=== PATIENT | female | born 1995 ===

== ENCOUNTER 2020-06-24 09:28 | Emergency (ER) | payer SELFPAY ==
[2020-06-24 09:53] VITALS: BP 126/87; PULSE 88; RESP 16; TEMP 37; O2SAT 99; BMI 28.1
--- NOTE | 2020-06-24 10:04 | ED.ABDPAIN ---
HPI - Abdominal Pain General Chief Complaint: Abdominal Pain Stated Complaint: BACK AND ABD PAIN,NAUSEA Time Seen by Provider: 06/24/20 09:56 Source: patient Mode of arrival: ambulatory Limitations: no limitations History of Present Illness HPI narrative: 24-year-old female previously healthy here with right lower abdominal pain which radiates to the right lower back times several hours. She also has some associated nausea with no vomiting. She tells me last evening she had some diarrhea but this is resolved today. She did have some hesitancy with urinating this morning but no dysuria, frequency, hematuria. No fevers or chills. No vaginal discharge, rashes, lesions, bumps.'LMP 06/05 MD elicited complaint: abdominal pain Onset (ago): hour(s) Pain Consistency: constant Location: RLQ Severity: mild Quality: sharp Radiation: back Migration to: no migration Exacerbating factors: nothing Relieving factors: nothing Associated symptoms: denies other symptoms Related Data Previous Rx's Medication Instructions Recorded ibuprofen 600 mg PO Q8H PRN #20 tab 06/24/20 tamsulosin [Flomax] 0.4 mg PO DAILY #20 cap 06/24/20 Allergies Allergy/AdvReac Type Severity Reaction Status Date / Time No Known Allergies Allergy Verified 06/24/20 09:55 [No Known Allergies*] Review of Systems Review of Systems Yes all other systems are reviewed and are negative Constitutional: Reports no additional constitutional complaints, Denies body ache(s), Denies chills, Denies fever(s), Denies headache(s) and Denies weakness Eyes: Reports no additional eye complaints and Denies change in vision Reports system reviewed and no additional complaints, except as documented, Denies dizziness, Denies headache(s), Denies nasal congestion, Denies nasal discharge and Denies neck pain Cardiovascular: Reports no additional cardiovascular complaints, Denies chest pain, Denies leg edema and Denies dyspnea Respiratory: Reports no additional respiratory complaints, Denies cough and Denies dyspnea Gastrointestinal: Reports no additional gastrointestinal complaints, Reports abdominal pain, Denies diarrhea, Reports nausea and Denies vomiting Genitourinary: Reports no additional female genitourinary complaints and Denies urinary incontinence Musculoskeletal: Reports no additional musculoskeletal complaints, Reports back pain, Denies arthralgias, Denies joint swelling, Denies neck pain, Denies numbness and Denies tingling Skin/Breast: Reports system reviewed and no additional complaints, except as docu and Denies rash Reports system reviewed and no additional complaints, except as documented, Denies Abnormal speech present, Denies dizziness, Denies headache(s), Denies numbness, Denies tingling and Denies weakness Physical Exam Vital Signs: Vital Signs: Last Vital Signs Temp 98.6 F 06/24/20 09:53 Pulse 80 06/24/20 11:51 Resp 16 06/24/20 11:51 BP 116/72 06/24/20 11:51 Pulse Ox 99 06/24/20 11:51 Body Mass Index 28.1 Const: General: cooperative, healthy appearing, comfortable and no acute distress Orientation/consciousness: patient oriented x3 Limitations: no limitations HENMT: Head: Yes normal to inspection Ears: hearing grossly normal bilaterally General nose exam: Normal external nose present Face and sinus: Yes normal facial exam Mouth: Normal oral and palatal mucosa present Throat: Yes posterior oropharynx normal Eyes: General: appearance normal, both eyes and all related structures Pupils: Equal, round and reactive pupils present Neck: Neck: Yes normal visual inspection Chest: Chest palpation & inspection: normal inspection of the chest Resp: Effort & Inspection: normal respiratory effort Auscultation: clear to auscultation bilaterally Cardio: Rate: regular rate Rhythm: regular rhythm Peripheral pulses: Peripheral pulses 2+ throughout GI: Inspection: Yes normal to inspection Palpation (GI): Soft to palpation and Tenderness to palpation present (GI) (no rebound, mild guarding ) in the RLQ Auscultation: normal bowel sounds : General: Yes no CVA tenderness Back/Spine/Pelvis: Other: Unable to elicit pain on exam. Patient points to her mid to lower right back Back: no CVA tenderness Thoracic/Lumbar Spine: thoracic and lumbar spine normal to inspection Skin: General skin exam: no rashes or lesions noted Neuro: General: patient oriented x3, no focal motor deficits and normal sensation to monofilament Cranial nerves: Yes Equal, round and reactive pupils present Cognition (Neuro): normal cognition Speech: No Abnormal speech present Gait exam (Neuro): Normal gait present Motor exam (neuro): 5/5 motor strength present throughout Extrem: General: Yes normal to inspection Course Course Course Narrative: 24-year-old female here with right lower abdominal pain which radiates to the right lower back times several hours. On exam has some mild tenderness. She will need labs, UA, urine . Will place PIV and give normal saline bolus, antiemetics and analgesia and reassess. Patient will likely need additional imaging. 1120-UA shows 3+ RBC. Likely renal colic however consider appendicitis. Will check Ct A/P. 1245- CT shows 1. Mild right hydronephrosis and hydroureter secondary to a 3 mm right ureteral calculus at level of L3. 2. Two nonobstructing calculi lower pole right kidney, each around 3 mm. 3. Moderate stool in colon. No obstruction. Appendix unremarkable. 4. Small follicular cyst right ovary 2.5 cm and dominant follicle left ovary 2.2 cm. 1245-labs unremarkable. Patient is feeling improved after receiving a dose of Toradol here. We will refer her for outpatient Urology follow-up. Reviewed worrisome signs and symptoms and when to return to the emergency department. Comfortable with discharge home. MDM - Abdominal Pain MDM Narrative Medical decision making narrative: Appendicitis, pyelonephritis, UTI, ovarian cyst versus torsion, cholecystitis, cholelithiasis Medical Records Attestation: I reviewed the patient's medical records. Lab Data Attestation: I reviewed the patient's lab results. Result diagrams: 06/24/20 10:14 06/24/20 10:14 Labs: Lab Results 06/24/20 06/24/20 06/24/20 Range/Units 10:14 10:14 10:14 WBC 7.4 (4.8-10.8) X10*3/uL RBC 4.49 (4.20-5.50) X10*6/uL Hgb 13.6 (12.0-16.0) g/dl Hct 39.8 (37-47) % MCV 88.6 (80-98) fL MCH 30.3 (27.0-33.0) pg MCHC 34.2 (31.0-35.0) g/dl RDW 11.9 (11.0-16.0) % Plt Count 336 (160-400) X10*3/uL MPV 9.1 L (9.4-12.3) fL Immature Gran % (Auto) 0.5 H (0.0-0.4) % Neut % (Auto) 66.6 (45-73) % Lymph % (Auto) 18.9 L (20-40) % [place] % (Auto) 11.8 H (2-11) % Eos % (Auto) 1.4 (0-4) % Baso % (Auto) 0.8 (0-2) % Lymph # (Auto) 1.4 (1.2-4.9) X10*3/uL [place] # (Auto) 0.9 (0.1-1.2) X10*3/uL Eos # (Auto) 0.1 (0.0-0.4) X10*3/uL Baso # (Auto) 0.1 (0.0-0.2) X10*3/uL Abs Immat Gran (auto) 0.04 H (0.00-0.03) X10*3/uL Absolute Neuts (auto) 4.9 (2.0-8.3) X10*3/uL Absolute Nucleated RBC 0.000 (0.0-0.012) X10*3/uL Nucleated RBC % (auto) 0.0 (0.0-0.2) /100WBC Sodium 138 (135-145) mmol/L Potassium 4.4 (3.3-5.1) mmol/l Chloride 107 (96-108) mmol/L Carbon Dioxide 26 (22-29) mmol/L Anion Gap 9 L (12-20) BUN 8 L (9-16) mg/dL Creatinine 0.71 (0.5-1.4) mg/dL Estim Creat Clear Calc 120.6 Estimated GFR > 60 Random Glucose 99 (60-115) mg/dL Calcium 8.9 (8.4-10.2) mg/dL Magnesium 1.7 (1.6-2.6) mg/dL Total Bilirubin 0.3 (0.0-1.0) mg/dL Direct Bilirubin < 0.2 (0.0-0.5) mg/dL AST 12 (5-31) U/L ALT 14 (0-31) U/L Alkaline Phosphatase 58 (39-117) U/L Total Protein 6.3 L (6.5-8.0) g/dL Albumin 4.1 (3.5-5.0) g/dL Urine Color [place] Urine Appearance HAZY Urine pH 7.0 (5.0-8.0) Ur Specific [place] 1.020 (1.005-1.025) Urine Protein NEG (NEG-TRACE) MG/DL Urine Glucose (UA) NEG (NEG) MG/DL Urine Ketones NEG (NEG) MG/DL Urine Blood 3+ H (NEG) Urine Nitrite NEG (NEG) Ur Leukocyte Esterase NEG (NEG) Urine RBC TNTC H (0) /HPF Urine WBC 1-4 (0-4) /HPF Ur Squamous Epith Cells TRACE /LPF Urine Bacteria NONE /LPF Urine Test NEGATIVE (NEGATIVE) Imaging Data CT scan - abdomen: Attestation: I personally reviewed and interpreted this imaging study as follows: Radiologist's impression: CT/CT abdomen pelvis w con IMPRESSION: 1. Mild right hydronephrosis and hydroureter secondary to a 3 mm right ureteral calculus at level of L3. 2. Two nonobstructing calculi lower pole right kidney, each around 3 mm. 3. Moderate stool in colon. No obstruction. Appendix unremarkable. 4. Small follicular cyst right ovary 2.5 cm and dominant follicle left ovary 2.2 cm. Discharge Plan Discharge Clinical Impression: Renal colic on right side Patient Disposition: Home, Self-Care Instructions: Renal Colic (ED) Additional Instructions: Drink plenty of fluids Call urology for follow-up appointment Return for severe pain not improved with medicines that we are prescribing, vomiting episodes, fever Prescriptions: New tamsulosin [Flomax] 0.4 mg capsule 0.4 mg PO DAILY Qty: 20 RF: 0 ibuprofen 600 mg tablet 600 mg PO Q8H PRN (Reason: pain) Qty: 20 RF: 0 Referrals: Howie Fuentes MD [Physician] - 2 days Physician,Unknown [Primary Care Provider] - 2 days Interventions: ED Discharge Assessment Last Done: 06/24/20 12:44 Discharge Date/Time: 06/24/20 12:44 [facility] Past Medical History Attestation statement: The following information was validated with the patient. Source: old records reviewed and nursing notes reviewed Medical History No known health problems Social History Social History Advance Directives: No Advance Directives Information Provided: No
[2020-06-24 10:22] LABS: MANUAL DIFF FLAG NO
[2020-06-24 10:25] LABS: Basophils Absolute Auto 0.1 X10*3/uL (0.0-0.2); Basophils Percent Auto 0.8 % (0-2); Eosinophils Absolute Auto 0.1 X10*3/uL (0.0-0.4); Eosinophils Percent Auto 1.4 % (0-4); Hematocrit 39.8 % (37-47); Hemoglobin 13.6 g/dl (12.0-16.0); Imm Gran Abs Auto 0.04 X10*3/uL (0.00-0.03); Imm Gran Pct Auto 0.5 % (0.0-0.4); Lymphocytes Absolute Auto 1.4 X10*3/uL (1.2-4.9); Lymphocytes Percent Auto 18.9 % (20-40); Mean Corpuscular HGB Conc 34.2 g/dl (31.0-35.0); Mean Corpuscular Hemoglobin 30.3 pg (27.0-33.0); Mean Corpuscular Volume 88.6 fL (80-98); Mean Platelet Volume 9.1 fL (9.4-12.3); Monocytes Absolute Auto 0.9 X10*3/uL (0.1-1.2); Monocytes Percent Auto 11.8 % (2-11); Neutrophils Absolute Auto 4.9 X10*3/uL (2.0-8.3); Neutrophils Percent Auto 66.6 % (45-73); Platelet Count 336 X10*3/uL (160-400); Red Blood Count 4.49 X10*6/uL (4.20-5.50); Red Cell Distribution Width 11.9 % (11.0-16.0); White Blood Count 7.4 X10*3/uL (4.8-10.8)
[2020-06-24] MEDS: ondansetron HCL 4 MG/2 ML VIAL IVPUSH (10:26)
[2020-06-24] MEDS: 0.9 % Sodium Chloride 1,000 ML 999 ML IV (10:26)
[2020-06-24] MEDS: Morphine Sulfate 4 MG/ML CARTRIDGE IVPUSH (10:26)
[2020-06-24 10:34] LABS: Glucose Urine UA NEG (NEG); Leukocyte Esterase Urine NEG (NEG); Nitrite Urine NEG (NEG); Urine Blood 3+ (NEG); Urine Ketones NEG (NEG); Urine Protein NEG (NEG-TRACE)
[2020-06-24 10:37] LABS: Appearance Urine HAZY; Color Urine AMBER
[2020-06-24 10:38] LABS: UPreg QC Valid YES; Urine Pregnancy NEGATIVE (NEGATIVE)
--- NOTE | 2020-06-24 10:50 | CT_ITS ---
EXAMINATION: CT ABDOMEN AND PELVIS WITH CONTRAST CLINICAL INFORMATION: Right flank and right lower quadrant pain. Age 24. COMPARISON: None TECHNIQUE: Multidetector volumetric images were obtained from the superior aspect of the liver through the pubic symphysis following administration 85 mL of Omnipaque 350 intravenous contrast. Sagittal and coronal reformatted images were obtained on the technologist's workstation. Oral contrast: No This CT examination was performed using dose optimization techniques as appropriate, variously including the following: *Automated exposure control *Adjustment of mA and/or kV according to patient size (this includes techniques or standardized protocols for targeted exams where dose is matched to indication/reason for exam; i.e. extremities or head) *Use of iterative reconstruction technique DLP: 565 mGy-cm FINDINGS: LUNG BASES: The visualized lung bases are unremarkable. LIVER, GALLBLADDER, AND BILIARY TREE: The liver is normal in size, shape, and attenuation. No focal hepatic lesion or biliary ductal dilatation is present. The gallbladder is unremarkable with no evidence of radiopaque gallstones, gallbladder wall thickening, or obvious pericholecystic inflammatory changes. PANCREAS: Unremarkable. SPLEEN: Unremarkable. ADRENAL GLANDS: Unremarkable. KIDNEYS AND URETERS: There is mild right hydronephrosis and hydroureter secondary to a 3 mm right ureteral calculus at level of L3. No perinephric stranding. There are 2 nonobstructing calculi lower pole right kidney, each approximately 3 mm. The kidneys enhance symmetrically and are normal in size. No left hydronephrosis or perinephric stranding or calculi. BLADDER: Unremarkable. GASTROINTESTINAL TRACT: No bowel obstruction or inflammatory changes in the bowel or mesentery. There is moderate stool in the colon. The appendix is normal. There is no ascites or fluid collection. ABDOMINAL WALL: No significant hernia is appreciated. LYMPH NODES: No lymphadenopathy. VASCULAR: Unremarkable. PELVIC VISCERA: There is a probable follicular cyst in the right ovary measuring 2.5 cm and a dominant follicle on the left measuring 2.2 cm. No pelvic ascites. OSSEOUS STRUCTURES: Unremarkable. CT/CT abdomen pelvis w con IMPRESSION: 1. Mild right hydronephrosis and hydroureter secondary to a 3 mm right ureteral calculus at level of L3. 2. Two nonobstructing calculi lower pole right kidney, each around 3 mm. 3. Moderate stool in colon. No obstruction. Appendix unremarkable. 4. Small follicular cyst right ovary 2.5 cm and dominant follicle left ovary 2.2 cm.
[2020-06-24 10:55] LABS: RBC Urine TNTC /HPF (0); Squamous Epithelial Cell Urine TRACE /LPF
[2020-06-24] MEDS: Ketorolac Tromethamine 30 MG/ML VIAL IVPUSH (10:57)
[2020-06-24 10:58] LABS: Alanine Aminotransferase 14 U/L (0-31); Albumin Level 4.1 g/dL (3.5-5.0); Alkaline Phosphatase 58 U/L (39-117); Anion Gap 9 (12-20); Aspartate Amino Transferase 12 U/L (5-31); Bilirubin Direct < 0.2 mg/dL (0.0-0.5); Bilirubin Total 0.3 mg/dL (0.0-1.0); Blood Urea Nitrogen 8 mg/dL (9-16); Calcium 8.9 mg/dL (8.4-10.2); Carbon Dioxide 26 mmol/L (22-29); Chloride 107 mmol/L (96-108); Creatinine Clr Calc Pharmacy 120.6; Estimated Glomerular Filt Rate > 60; Glucose Random 99 mg/dL (60-115); Magnesium 1.7 mg/dL (1.6-2.6); Potassium 4.4 mmol/l (3.3-5.1); Sodium 138 mmol/L (135-145); Total Protein 6.3 g/dL (6.5-8.0)
--- NOTE | 2020-06-24 10:58 | PC.NURSE ---
Pain 6/10 s/p meds given. Awaiting CT scan
[2020-06-24 11:51] VITALS: BP 116/72; PULSE 80; RESP 16; O2SAT 99
[2020-06-24] MEDS: iohexoL 350 MG/ML 100 ML INFUS..BTL IV (11:58)
== END 2020-06-24 12:44 | disposition home or self-care (01) ==
PROVIDERS: Nurse Practitioner Family; Emergency Provider Emergency Medicine Emergency Medical Services
DX: N23 Unspecified renal colic (principal); Z79.899 Other long term (current) drug therapy
CPT/HCPCS: 36415; 74177; 80048; 80076; 81001; 81025; 83735; 85025; 96361; 96374; 96375; 99284; J1885; J2270; J2405; Q9967

== ENCOUNTER 2022-03-04 12:04 | Emergency (ER) | payer BC, SELFPAY | END 2022-03-04 16:45 | disposition left against medical advice (07) | PROVIDERS: Emergency Provider Emergency Medicine | DX: R10.30 Lower abdominal pain, unspecified (principal) ==

== ENCOUNTER 2022-03-05 00:42 | Emergency (ER) | payer BC, SELFPAY ==
[2022-03-05 01:08] VITALS: BP 127/65; PULSE 77; RESP 16; TEMP 36.8; O2SAT 100; BMI 29.2
[2022-03-05 01:26] LABS: MANUAL DIFF FLAG NO
[2022-03-05 01:27] LABS: Basophils Absolute Auto 0.1 X10*3/uL (0.0-0.2); Basophils Percent Auto 0.9 % (0-2); Eosinophils Absolute Auto 0.1 X10*3/uL (0.0-0.4); Eosinophils Percent Auto 1.7 % (0-4); Hematocrit 37.7 % (37.0-47.0); Hemoglobin 13.2 g/dl (12.0-16.0); Imm Gran Abs Auto 0.04 X10*3/uL (0.00-0.03); Imm Gran Pct Auto 0.5 % (0.0-0.4); Lymphocytes Absolute Auto 2.1 X10*3/uL (1.2-4.9); Lymphocytes Percent Auto 27.4 % (20-40); Mean Corpuscular Hemoglobin 30.3 pg (27.0-33.0); Mean Corpuscular Volume 86.7 fL (80.0-98.0); Mean Platelet Volume 8.7 fL (9.4-12.3); Monocytes Absolute Auto 0.9 X10*3/uL (0.1-1.2); Monocytes Percent Auto 11.8 % (2-11); Neutrophils Absolute Auto 4.4 x10*3/uL (2.0-8.3); Neutrophils Percent Auto 57.7 % (45-73); Platelet Count 347 X10*3/uL (160-400); Red Blood Count 4.35 X10*6/uL (4.20-5.50); Red Cell Distribution Width 11.9 % (11.0-16.0); White Blood Count 7.6 X10*3/uL (4.8-10.8)
[2022-03-05 01:43] LABS: Alanine Aminotransferase 12 U/L (0-31); Albumin Level 4.2 g/dL (3.5-5.0); Alkaline Phosphatase 75 U/L (39-117); Anion Gap 14 (12-20); Aspartate Amino Transferase 14 U/L (5-31); Bilirubin Total 0.3 mg/dL (0.0-1.0); Blood Urea Nitrogen 10 mg/dL (9-16); Carbon Dioxide 23 mmol/L (22-29); Chloride 107 mmol/L (96-108); Creatinine Clr Calc Pharmacy 104.6; Estimated Glomerular Filt Rate > 60; Glucose Random 100 mg/dL (60-115); Lipase 13 U/L (8-78); Potassium 4.2 mmol/L (3.3-5.1); Sodium 140 mmol/L (135-145); Total Protein 6.7 g/dL (6.5-8.0)
--- NOTE | 2022-03-05 04:37 | ED.ABDPAIN ---
HPI - Abdominal Pain General Chief Complaint: Abdominal Pain Stated Complaint: Abd pain Time Seen by Provider: 03/05/22 04:36 Source: patient Mode of arrival: ambulatory Limitations: no limitations History of Present Illness HPI narrative: Patient just finished her menstrual cycle Two days ago noticed pain with diarrhea and nausea since yesterday morning pain is in suprapubic area comes and goes mostly had multiple watery stools able to eat and drink no fever or chills no urinary symptoms patient feels comfortable at this time denies any urinary complaints Related Data Previous Rx's Medication Instructions Recorded ibuprofen 600 mg tablet 600 mg PO Q8H PRN pain #20 tabs 06/24/20 tamsulosin 0.4 mg capsule (Flomax) 0.4 mg PO DAILY #20 caps 06/24/20 Allergies Allergy/AdvReac Type Severity Reaction Status Date / Time No Known Allergies Allergy Verified 03/05/22 01:10 [No Known Allergies*] Review of Systems Review of Systems Yes all other systems are reviewed and are negative [facility] Past Medical History Medical History No known health problems Social History Social History Advance Directives: No Advance Directives Information Provided: Yes Physical Exam ED Vital Signs: Vital Signs - 24 hr 03/05/22 01:08 Temperature 98.2 F Pulse Rate 77 Respiratory Rate 16 Blood Pressure 127/65 Pulse Oximetry 100 Oxygen Delivery Method Room Air BMI result Body Mass Index 29.2 Appearance: Alert. Oriented X3. No acute distress. Eyes: PERRLA, No Nystagmus ENT: Pharynx normal. Oral Mucosa moist Neck: Normal inspection. Neck supple. CVS: Normal heart rate and rhythm. Pulses normal. Respiratory: No respiratory distress. Equal air entry bilateral, no wheezing/rales/rhonchi Abdomen: Soft , mild suprapubic tenderness no rebound tenderness no tenderness in right lower quadrant or left lower quadrant no guarding Bowel sounds are present, no mass palpable, no CVA tenderness Skin: Skin warm and dry. Normal skin color. Normal skin turgor. Extremities: No lower extremity edema. No calf tenderness Neuro: Oriented X 3. No motor deficit. MDM - Abdominal Pain Lab Data Attestation: I reviewed the patient's lab results. Result diagrams: 03/05/22 01:14 03/05/22 01:14 Labs: Lab Results 03/05/22 03/05/22 03/05/22 Range/Units 01:14 01:14 05:08 WBC 7.6 (4.8-10.8) X10*3/uL RBC 4.35 (4.20-5.50) X10*6/uL Hgb 13.2 (12.0-16.0) g/dl Hct 37.7 (37.0-47.0) % MCV 86.7 (80.0-98.0) fL MCH 30.3 (27.0-33.0) pg MCHC 35.0 (31.0-35.0) g/dl RDW 11.9 (11.0-16.0) % Plt Count 347 (160-400) X10*3/uL MPV 8.7 L (9.4-12.3) fL Immature Gran % (Auto) 0.5 H (0.0-0.4) % Neut % (Auto) 57.7 (45-73) % Lymph % (Auto) 27.4 (20-40) % [place] % (Auto) 11.8 H (2-11) % Eos % (Auto) 1.7 (0-4) % Baso % (Auto) 0.9 (0-2) % Lymph # (Auto) 2.1 (1.2-4.9) X10*3/uL [place] # (Auto) 0.9 (0.1-1.2) X10*3/uL Eos # (Auto) 0.1 (0.0-0.4) X10*3/uL Baso # (Auto) 0.1 (0.0-0.2) X10*3/uL Abs Immat Gran (auto) 0.04 H (0.00-0.03) X10*3/uL Absolute Neuts (auto) 4.4 (2.0-8.3) x10*3/uL Absolute Nucleated RBC 0.000 (0.0-0.012) X10*3/uL Nucleated RBC % (auto) 0.0 (0.0-0.2) /100WBC Sodium 140 (135-145) mmol/L Potassium 4.2 (3.3-5.1) mmol/L Chloride 107 (96-108) mmol/L Carbon Dioxide 23 (22-29) mmol/L Anion Gap 14 (12-20) BUN 10 (9-16) mg/dL Creatinine 0.79 (0.5-1.4) mg/dL Estim Creat Clear Calc 104.6 Estimated GFR > 60 Random Glucose 100 (60-115) mg/dL Calcium 9.0 (8.4-10.2) mg/dL Total Bilirubin 0.3 (0.0-1.0) mg/dL AST 14 (5-31) U/L ALT 12 (0-31) U/L Alkaline Phosphatase 75 D (39-117) U/L Total Protein 6.7 (6.5-8.0) g/dL Albumin 4.2 (3.5-5.0) g/dL Lipase 13 (8-78) U/L Urine Color Yellow Urine Appearance Cloudy Urine pH 7.5 (5.0-9.0) Ur Specific [place] 1.015 (1.005-1.025) Urine Protein Trace (Neg-Trace) mg/dL Urine Glucose (UA) Negative (Negative) mg/dL Urine Ketones Negative (Negative) mg/dL Urine Blood Moderate (2+) H (Negative) Urine Nitrite Negative (Negative) Ur Leukocyte Esterase Trace H (Negative) Urine RBC >20 H (0-2) /HPF Urine WBC 6-10 H (0-5) /HPF Ur Squamous Epith Cells 6-10 (0-2) /HPF Urine Bacteria 1+ (None Seen) Hyaline Casts 0-2 (0-2) /LPF Urine Test (NEGATIVE) 03/05/22 Range/Units 05:08 WBC (4.8-10.8) X10*3/uL RBC (4.20-5.50) X10*6/uL Hgb (12.0-16.0) g/dl Hct (37.0-47.0) % MCV (80.0-98.0) fL MCH (27.0-33.0) pg MCHC (31.0-35.0) g/dl RDW (11.0-16.0) % Plt Count (160-400) X10*3/uL MPV (9.4-12.3) fL Immature Gran % (Auto) (0.0-0.4) % Neut % (Auto) (45-73) % Lymph % (Auto) (20-40) % [place] % (Auto) (2-11) % Eos % (Auto) (0-4) % Baso % (Auto) (0-2) % Lymph # (Auto) (1.2-4.9) X10*3/uL [place] # (Auto) (0.1-1.2) X10*3/uL Eos # (Auto) (0.0-0.4) X10*3/uL Baso # (Auto) (0.0-0.2) X10*3/uL Abs Immat Gran (auto) (0.00-0.03) X10*3/uL Absolute Neuts (auto) (2.0-8.3) x10*3/uL Absolute Nucleated RBC (0.0-0.012) X10*3/uL Nucleated RBC % (auto) (0.0-0.2) /100WBC Sodium (135-145) mmol/L Potassium (3.3-5.1) mmol/L Chloride (96-108) mmol/L Carbon Dioxide (22-29) mmol/L Anion Gap (12-20) BUN (9-16) mg/dL Creatinine (0.5-1.4) mg/dL Estim Creat Clear Calc Estimated GFR Random Glucose (60-115) mg/dL Calcium (8.4-10.2) mg/dL Total Bilirubin (0.0-1.0) mg/dL AST (5-31) U/L ALT (0-31) U/L Alkaline Phosphatase (39-117) U/L Total Protein (6.5-8.0) g/dL Albumin (3.5-5.0) g/dL Lipase (8-78) U/L Urine Color Urine Appearance Urine pH (5.0-9.0) Ur Specific [place] (1.005-1.025) Urine Protein (Neg-Trace) mg/dL Urine Glucose (UA) (Negative) mg/dL Urine Ketones (Negative) mg/dL Urine Blood (Negative) Urine Nitrite (Negative) Ur Leukocyte Esterase (Negative) Urine RBC (0-2) /HPF Urine WBC (0-5) /HPF Ur Squamous Epith Cells (0-2) /HPF Urine Bacteria (None Seen) Hyaline Casts (0-2) /LPF Urine Test NEGATIVE (NEGATIVE) Discharge Plan Discharge Clinical Impression: Gastroenteritis Patient Disposition: Home, Self-Care Instructions: Gastroenteritis (ED) Additional Instructions: Drink plenty of fluids Report to the ER if worsening of pain/fever/persistent vomiting for further investigation Prescriptions: No Action tamsulosin [Flomax] 0.4 mg capsule 0.4 mg PO DAILY Qty: 20 0RF ibuprofen 600 mg tablet 600 mg PO Q8H PRN (Reason: pain) Qty: 20 0RF Interventions: ED Discharge Assessment Last Done: 03/05/22 05:13 Discharge Date/Time: 03/05/22 05:14
[2022-03-05 05:14] LABS: Appearance Urine Cloudy; Color Urine Yellow; Glucose Urine UA Negative (Negative); Leukocyte Esterase Urine Trace (Negative); Nitrite Urine Negative (Negative); PH 7.5 (5.0-9.0); Specific Gravity - Urine 1.015 (1.005-1.025); Urine Blood Moderate (2+) (Negative); Urine Ketones Negative (Negative); Urine Protein Trace mg/dL (Neg-Trace)
[2022-03-05 05:15] LABS: UPreg QC Valid YES; Urine Pregnancy NEGATIVE (NEGATIVE)
[2022-03-05 05:19] LABS: Bacteria Urine 1+ (None Seen); Hyaline Casts Urine 0-2 /LPF (0-2); RBC Urine >20 /HPF (0-2)
== END 2022-03-05 05:14 | disposition home or self-care (01) ==
PROVIDERS: Emergency Provider Internal Medicine
DX: K52.9 Noninfective gastroenteritis and colitis, unspecified (principal); Z79.899 Other long term (current) drug therapy
CPT/HCPCS: 36415; 80053; 81001; 81025; 83690; 85025; 87086; 99282; 99283

== ENCOUNTER 2023-08-24 07:52 | Emergency (ER) | payer OTHER, SELFPAY ==
--- NOTE | ~2023-08-24 | CT_ITS ---
EXAMINATION: CT ABDOMEN AND PELVIS WITH CONTRAST CLINICAL INFORMATION: Abdominal pain, fevers and diarrhea COMPARISON: 06/24/2020 TECHNIQUE: Multidetector volumetric images were obtained from the superior aspect of the liver through the pubic symphysis following administration 85 mL of Omnipaque 350 intravenous contrast. Sagittal and coronal reformatted images were obtained on the technologist's workstation. Oral contrast: No This CT examination was performed using dose optimization techniques as appropriate, variously including the following: *Automated exposure control *Adjustment of mA and/or kV according to patient size (this includes techniques or standardized protocols for targeted exams where dose is matched to indication/reason for exam; i.e. extremities or head) *Use of iterative reconstruction technique DLP: 479 mGy-cm FINDINGS: ORANGE GROWER: Unremarkable. LUNG BASES: The visualized lung bases are unremarkable. LIVER, GALLBLADDER, AND BILIARY TREE: The liver is normal in size, shape, and attenuation. No focal hepatic lesion or biliary ductal dilatation is present. The gallbladder is unremarkable with no evidence of radiopaque gallstones, gallbladder wall thickening, or obvious pericholecystic inflammatory changes. PANCREAS: Unremarkable. SPLEEN: Unremarkable. ADRENAL GLANDS: Unremarkable. KIDNEYS AND URETERS: The kidneys are normal in size, shape, and attenuation. No hydronephrosis, hydroureter, or calculi seen. Too small to characterize renal hypodensities are statistically cysts. No perinephric stranding. BLADDER: Unremarkable. GASTROINTESTINAL TRACT: Under distended. No small bowel obstruction. Fecalization of the terminal ileum. Unremarkable appendix. The ascending, transverse and proximal-mid descending colon are decompressed with mild stranding about the ascending and transverse colon. Few scattered diverticula noted. ABDOMINAL WALL: No significant hernia is appreciated. LYMPH NODES: Normal. VASCULAR: Unremarkable. PELVIC VISCERA: Likely bilateral ovarian follicles. Mildly prominent periuterine vessels. OSSEOUS STRUCTURES: Unremarkable. CT/CT abdomen pelvis w IV con IMPRESSION: CT findings suspicious for colitis. Mild diverticulosis without diverticulitis. Fleischner guidelines were followed.
[2023-08-24 08:04] VITALS: BP 134/97; PULSE 73; RESP 18; TEMP 36.9; O2SAT 98; BMI 27.3
--- NOTE | 2023-08-24 08:30 | ED_ITS ---
HPI - Nausea/Vomiting/Diarrhea General Chief complaint: Nausea/Vomiting/Diarrhea Stated complaint: Vomiting/Diarrhea Time Seen by Provider: 08/24/23 07:57 Source: patient Mode of arrival: ambulatory Limitations: no limitations History of Present Illness HPI Narrative: 27 yo female with no sig PMH no surgeries on started with diffuse abdominal pain and abrupt onset fevers, chills n/v/d and still feels ill with AM n/v/d pain. She notes she still has sweats and chills. This has never happened before. She denies travel, exposures, abx use. 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 She took no medications prior to arrival today. She did have some rectal pain and fullness but does not participate in anal intercourse. She has no hx of colitis. MD elicited complaint: nausea, vomiting and abdominal pain Onset (ago): day(s) (since ) Description of vomiting: watery and bilious Description of diarrhea: watery Associated nausea: Yes Associated abdominal pain: Yes Location of pain: diffuse Radiation: diffuse Pain consistency: intermittent Severity: moderate Quality: aching Exacerbating factors: eating and movement Relieving factors: none Associated symptoms: fever/chills, loss of appetite, malaise, nausea/vomiting and weakness Related Data Previous Rx's Medication Instructions Recorded ibuprofen 600 mg tablet 600 mg PO Q8H PRN pain #20 tabs 06/24/20 tamsulosin 0.4 mg capsule (Flomax) 0.4 mg PO DAILY #20 caps 06/24/20 ciprofloxacin HCl 500 mg tablet 500 mg PO BID #14 tabs 08/24/23 metronidazole 500 mg tablet 500 mg PO BID 7 days #14 tabs 08/24/23 ondansetron 4 mg disintegrating 4 mg PO Q8H PRN nausea and 08/24/23 tablet vomiting #20 tabs promethazine 25 mg rectal 25 mg VA Q6H PRN nausea and 08/24/23 suppository vomiting #12 ea Allergies Allergy/AdvReac Type Severity Reaction Status Date / Time No Known Allergies Allergy Verified 08/24/23 08:08 [No Known Allergies*] Review of Systems 2 Review of Systems: Constitutional : No Weight loss, No Fever, pos Chills ENT/Mouth : No sore throat, No Rhinorrhea Eyes: No Swelling, No Redness Cardiovascular : No Chest Pain, No SOB, NoEdema Respiratory : No Cough, No Sputum, No Wheezing Gastrointestinal : Positive Nausea, Positive Vomiting, positive Diarrhea, positive abdominal Pain, No Hematochezia, No Melena Genitourinary : No Dysuria, No Urinary Frequency, No Hematuria, No Urgency Musculoskeletal : No joint pain, No Myalgias, No Joint Swelling Skin : No Skin Lesions, No rash Neuro : pos Weakness, No Numbness, No Dizziness, No Headache Psych : No Anxiety/Panic, No Depression Heme/Lymph: No Bruising, No Lymphadenopathy Endocrine : No Polyuria, No Polydipsia All other systems reviewed and are negative. Gastrointestinal: Gastrointestinal: Reports nausea PMFSH Past Medical History Attestation statement: The following information was validated with the patient. Source: old records reviewed Medical History No known health problems Social History Social History Smoked in Last 30 Days: No Use of substances other than those prescribed or required for medical reasons: Yes Substance Use Type: Marijuana Advance Directives: No Advance Directives Information Provided: Yes Patient : No Physical Exam 2 Vital Signs: Vital Signs: Last Vital Signs Temp 98.4 F 08/24/23 08:04 Pulse 73 08/24/23 08:04 Resp 18 08/24/23 08:04 BP 134/97 H 08/24/23 08:04 Pulse Ox 98 08/24/23 08:04 O2 Del Method Room Air 08/24/23 08:04 BMI result Body Mass Index 27.3 Appearance: Alert. Oriented X3. No acute distress. Eyes: Pupils equal, round and reactive to light. ENT: Pharynx dry MM. Neck: Normal inspection. Neck supple. CVS: Normal heart rate and rhythm. Pulses normal. Respiratory: No respiratory distress. Breath sounds normal. Abdomen: Soft and moderate lower abdominal ttp Rectal: normal mucosa, no mass felt, no hemorrhoids, no redness, no inflammation, no prolapse Skin: Skin warm and dry. Normal skin color. Normal skin turgor. Extremities: No lower extremity edema. No calf ttp Neuro: Oriented X 3. No motor deficit. No sensory deficit. Medications Administered Discontinued Medications Generic Name Dose Route Start Last Admin Trade Name Freq PRN Reason Stop Dose Admin Diphenhydramine HCl 25 mg 02/27/24 08:29 08/24/23 08:57 Diphenhydramine Hcl 50 Mg/Ml Vial IVPUSH 08/24/23 08:30 25 mg ONCE ONE Administration Famotidine 20 mg 08/24/23 08:29 08/24/23 08:57 Famotidine/Pf 20 Mg/2 Ml Vial IVPUSH 08/24/23 08:30 20 mg ONCE ONE Administration Sodium Chloride 1,000 mls @ 999 mls/hr 08/24/23 08:15 08/24/23 10:28 Ns IV 08/24/23 09:15 Infused .Q1H1M NICK Infusion Sodium Chloride 1,000 mls @ 999 mls/hr 08/24/23 08:30 08/24/23 10:29 Ns IV 08/24/23 09:30 Infused .Q1H1M NICK Infusion Iohexol 100 ml 08/24/23 09:22 08/24/23 09:23 Iohexol 350 Mg/Ml 100 Ml Infus..Btl IV 08/24/23 09:23 85 ml ONCE ONE Administration Ketorolac Tromethamine 15 mg 08/24/23 08:29 08/24/23 08:56 Ketorolac Tromethamine 15 Mg/Ml Vial IVPUSH 08/24/23 08:30 15 mg ONCE ONE Administration Metoclopramide HCl 10 mg 08/24/23 08:29 08/24/23 08:57 Metoclopramide Hcl 10 Mg/2 Ml Vial IVPUSH 08/24/23 08:30 10 mg ONCE ONE Administration Medical Decision Making Medical Decision Making MDM Narrative: 27 yo female with no PMH no PSH here with c/o lower abdominal pain n/v/d with associated fevers and chills/abdominal pain. At this time will need basic labs, UA, viral panel. CT scan to look for diverticulitis, renal colic, colitis. IVF and supportive medications ordered. Differential Diagnosis Differential Diagnoses: The differential diagnosis associated with the presentation includes enteritis, colitis, viral syndrome Admission/Observation Consideration of admission/observation: Escalation of care including admission/observation considered tolerating PO, labs reassuring mild colitis - given 6 days of symptoms at this point would start on oral antibiotics Lab Data MDM Lab Attestation statement: I reviewed the patient's lab results. 08/24/23 08:31 08/24/23 08:31 Labs: Lab Results 08/24/23 08/24/23 Range/Units 08:24 08:31 WBC 6.3 (4.8-10.8) X10*3/uL RBC 4.48 (4.20-5.50) X10*6/uL Hgb 13.5 (12.0-16.0) g/dl Hct 38.4 (37.0-47.0) % MCV 85.7 (80.0-98.0) fL MCH 30.1 (27.0-33.0) pg MCHC 35.2 H (31.0-35.0) g/dl RDW 11.9 (11.0-16.0) % Plt Count 300 (160-400) X10*3/uL MPV 9.0 L (9.4-12.3) fL Immature Gran % (Auto) 0.8 H (0.0-0.4) % Neut % (Auto) 69.3 (45-73) % Lymph % (Auto) 21.1 (20-40) % [place] % (Auto) 7.9 (2-11) % Eos % (Auto) 0.6 (0-4) % Baso % (Auto) 0.3 (0-2) % Lymph # (Auto) 1.3 (1.2-4.9) X10*3/uL [place] # (Auto) 0.5 (0.1-1.2) X10*3/uL Eos # (Auto) 0.0 (0.0-0.4) X10*3/uL Baso # (Auto) 0.0 (0.0-0.2) X10*3/uL Abs Immat Gran (auto) 0.05 H (0.00-0.03) X10*3/uL Absolute Neuts (auto) 4.4 (2.0-8.3) x10*3/uL Absolute Nucleated RBC 0.000 (0.0-0.012) X10*3/uL Nucleated RBC % (auto) 0.0 (0.0-0.2) /100WBC Sodium 141 (135-145) mmol/L Potassium 4.0 (3.3-5.1) mmol/L Chloride 112 H (96-108) mmol/L Carbon Dioxide 24 (22-29) mmol/L Anion Gap 9 L (12-20) BUN 10 (9-16) mg/dL Creatinine 0.72 (0.5-1.4) mg/dL Estim Creat Clear Calc 114.2 Estimated GFR > 60 Random Glucose 111 (60-115) mg/dL Calcium 9.4 (8.4-10.2) mg/dL Magnesium 1.9 (1.6-2.6) mg/dL Total Bilirubin 0.3 (0.0-1.0) mg/dL Direct Bilirubin 0.1 (0.0-0.5) mg/dL AST 13 (5-31) U/L ALT 11 (0-31) U/L Alkaline Phosphatase 62 (39-117) U/L Total Protein 6.7 (6.5-8.0) g/dL Albumin 4.2 (3.5-5.0) g/dL Lipase 19 (8-78) U/L Urine Color Yellow Urine Appearance Turbid Urine pH 8.5 (5.0-9.0) Ur Specific [place] 1.020 (1.005-1.025) Urine Protein Negative (Neg-Trace) mg/dL Urine Glucose (UA) Negative (Negative) mg/dL Urine Ketones Negative (Negative) mg/dL Urine Blood Negative (Negative) Urine Nitrite Negative (Negative) Ur Leukocyte Esterase Negative (Negative) Urine Test NEGATIVE (NEGATIVE) C. difficile Tox B Gene NEGATIVE (Negative) Influenza Type A (PCR) NEGATIVE (Negative) Influenza Type B (PCR) NEGATIVE (Negative) RSV RNA Qual (PCR) NEGATIVE (Negative) SARS-CoV-2 RNA (RT-PCR) NEGATIVE (Negative) Independent Interpretation I performed an independent interpretation of an: CT Scan (mild colitis) Radiology Impression Discussion of test interpretation with radiology: I have reviewed the radiologist's reading. Prescription Management I considered prescription management with: Pain Medication, Antibiotic and Other Discharge Plan Discharge Clinical Impression: Colitis Vomiting Qualifiers: Vomiting type: unspecified Nausea presence: with nausea Qualified Code(s): R 11.2 - Nausea with vomiting, unspecified Patient Disposition: Home, Self-Care Instructions: Acute Nausea and Vomiting (ED), Acute Diarrhea (ED), Colitis (ED) Additional Instructions: still pending full diarrhea panel but c diff negative labs reassuring CT scan mild colitis at this time given length of symptoms will start on oral antibiotics. return for dark urine, bloody stools, fevers over 48 hours, worsening pain, inability to eat or drink or any other concerns. do not drink alcohol on antibiotics. no exercise or strenous activity while on antibiotics and hold exercise for 5 days afterwards it can injure your tendons. Prescriptions: New ondansetron 4 mg tablet,disintegrating 4 mg PO Q8H PRN (Reason: nausea and vomiting) Qty: 20 0RF metronidazole 500 mg tablet 500 mg PO BID 7 Days Qty: 14 0RF ciprofloxacin HCl 500 mg tablet 500 mg PO BID Qty: 14 0RF promethazine 25 mg suppository 25 mg VA Q6H PRN (Reason: nausea and vomiting) Qty: 12 0RF No Action tamsulosin [Flomax] 0.4 mg capsule 0.4 mg PO DAILY Qty: 20 0RF ibuprofen 600 mg tablet 600 mg PO Q8H PRN (Reason: pain) Qty: 20 0RF Stand Alone Forms: Work/School Release
[2023-08-24 08:34] LABS: MANUAL DIFF FLAG NO
[2023-08-24 08:36] LABS: Basophils Percent Auto 0.3 % (0-2); Eosinophils Percent Auto 0.6 % (0-4); Hematocrit 38.4 % (37.0-47.0); Hemoglobin 13.5 g/dl (12.0-16.0); Imm Gran Abs Auto 0.05 X10*3/uL (0.00-0.03); Imm Gran Pct Auto 0.8 % (0.0-0.4); Lymphocytes Absolute Auto 1.3 X10*3/uL (1.2-4.9); Lymphocytes Percent Auto 21.1 % (20-40); Mean Corpuscular HGB Conc 35.2 g/dl (31.0-35.0); Mean Corpuscular Hemoglobin 30.1 pg (27.0-33.0); Mean Corpuscular Volume 85.7 fL (80.0-98.0); Monocytes Absolute Auto 0.5 X10*3/uL (0.1-1.2); Monocytes Percent Auto 7.9 % (2-11); Neutrophils Absolute Auto 4.4 x10*3/uL (2.0-8.3); Neutrophils Percent Auto 69.3 % (45-73); Platelet Count 300 X10*3/uL (160-400); Red Blood Count 4.48 X10*6/uL (4.20-5.50); Red Cell Distribution Width 11.9 % (11.0-16.0); White Blood Count 6.3 X10*3/uL (4.8-10.8)
[2023-08-24 08:39] LABS: Appearance Urine Turbid; Color Urine Yellow; Glucose Urine UA Negative (Negative); Leukocyte Esterase Urine Negative (Negative); Nitrite Urine Negative (Negative); PH 8.5 (5.0-9.0); UPreg QC Valid YES; Urine Blood Negative (Negative); Urine Ketones Negative (Negative); Urine Pregnancy NEGATIVE (NEGATIVE); Urine Protein Negative (Neg-Trace)
[2023-08-24 08:54] LABS: Alanine Aminotransferase 11 U/L (0-31); Albumin Level 4.2 g/dL (3.5-5.0); Alkaline Phosphatase 62 U/L (39-117); Anion Gap 9 (12-20); Aspartate Amino Transferase 13 U/L (5-31); Bilirubin Direct 0.1 mg/dL (0.0-0.5); Bilirubin Total 0.3 mg/dL (0.0-1.0); Blood Urea Nitrogen 10 mg/dL (9-16); Calcium 9.4 mg/dL (8.4-10.2); Carbon Dioxide 24 mmol/L (22-29); Chloride 112 mmol/L (96-108); Creatinine Clr Calc Pharmacy 114.2; Estimated Glomerular Filt Rate > 60; Glucose Random 111 mg/dL (60-115); Lipase 19 U/L (8-78); Magnesium 1.9 mg/dL (1.6-2.6); Sodium 141 mmol/L (135-145); Total Protein 6.7 g/dL (6.5-8.0)
[2023-08-24] MEDS: 0.9 % Sodium Chloride 1,000 ML 999 ML IV ×2 (08:56)
[2023-08-24] MEDS: Ketorolac Tromethamine 15 MG/ML VIAL IVPUSH (08:56)
[2023-08-24] MEDS: Metoclopramide HCl 10 MG/2 ML VIAL IVPUSH (08:57)
[2023-08-24] MEDS: Famotidine/PF 20 MG/2 ML VIAL IVPUSH (08:57)
[2023-08-24] MEDS: diphenhydrAMINE HCL 50 MG/ML VIAL 25 MG IVPUSH (08:57)
[2023-08-24 09:19] LABS: Influenza A PCR NEGATIVE (Negative); Influenza B PCR NEGATIVE (Negative); Resp Syncy Virus RNA Qual PCR NEGATIVE (Negative); SARS COV2 PCR INHOUSE NEGATIVE (Negative)
[2023-08-24] MEDS: iohexoL 350 MG/ML 100 ML INFUS..BTL IV (09:23)
[2023-08-24 09:28] LABS: CDiff Gene PCR NEGATIVE (Negative)
[2023-08-24 11:13] VITALS: BP 104/77; PULSE 74; RESP 18; TEMP 36.6; O2SAT 99
[2023-08-24 12:34] LABS: Adenovirus F 40/41 Not Detected (Not Detect.); Astrovirus Not Detected (Not Detect.); Campylobacter Not Detected (Not Detect.); Cryptosporidium Not Detected (Not Detect.); Cyclospora cayetanensis Not Detected (Not Detect.); E. coli EAEC Not Detected (Not Detect.); E. coli EPEC Not Detected (Not Detect.); E. coli ETEC Not Detected (Not Detect.); E. coli STEC Not Detected (Not Detect.); Entamoeba histolytica Not Detected (Not Detect.); Giardia lamblia Not Detected (Not Detect.); Norovirus GI/GII Not Detected (Not Detect.); Plesiomonas shigelloides Not Detected (Not Detect.); Rotavirus A Not Detected (Not Detect.); Salmonella Not Detected (Not Detect.); Sapovirus Not Detected (Not Detect.); Shigella sp./EIEC Not Detected (Not Detect.); Vibrio Not Detected (Not Detect.); Vibrio Cholerae Not Detected (Not Detect.); Yersinia enterocolitica Not Detected (Not Detect.)
== END 2023-08-24 11:26 | disposition home or self-care (01) ==
PROVIDERS: Emergency Provider Emergency Medicine; PCP Internal Medicine
DX: K52.9 Noninfective gastroenteritis and colitis, unspecified (principal); K57.30 Diverticulosis of large intestine without perforation or abscess without bleeding; R11.2 Nausea with vomiting, unspecified; R10.30 Lower abdominal pain, unspecified; Z11.52 Encounter for screening for COVID-19; Z20.828 Contact with and (suspected) exposure to other viral communicable diseases
CPT/HCPCS: 0241U; 74177; 80048; 80076; 81003; 81025; 83690; 83735; 85025; 87493; 87507; 96361; 96374; 96375; 99284; J1200; J1885; J2765; Q9967

== ENCOUNTER 2023-08-26 08:12 | Inpatient (IN) | payer OTHER, SELFPAY ==
--- NOTE | ~2023-08-26 | XR_ITS ---
EXAMINATION: XR CHEST CLINICAL INFORMATION: Shortness of breath COMPARISON: Chest 10/08/2018 TECHNIQUE: Frontal view of the chest was obtained. FINDINGS: No significant abnormality is noted involving the heart, lungs, mediastinum, bony thorax or soft tissues. XR/XR chest 1V IMPRESSION: Unremarkable examination.
[2023-08-26 08:31] VITALS: BP 136/80; PULSE 74; RESP 16; TEMP 36.6; O2SAT 99; BMI 27.1
--- NOTE | 2023-08-26 08:36 | ED_ITS ---
HPI - Nausea/Vomiting/Diarrhea General Chief complaint: Abdominal Pain Stated complaint: Vomiting, diarrhea Time Seen by Provider: 08/26/23 08:33 Source: patient Mode of arrival: ambulatory Limitations: no limitations History of Present Illness HPI Narrative: 27 yo female with no PMH seen here on 08/24 after 6 days of n/v/d and fevers at home CT scan showed colitis - c diff and GI panel negative. She was sent home with zofran, phenergan suppositories and cipro and flagyl given duration of symptoms with fevers. She notes since then she has n/v/d and abdominal pain. She doesn't feel well and cannot eat or drink. MD elicited complaint: nausea, vomiting, diarrhea and abdominal pain Onset (ago): day(s) (8) Description of vomiting: food contents, watery and bilious Description of diarrhea: watery Associated nausea: Yes Associated abdominal pain: Yes Location of pain: diffuse Radiation: diffuse Pain consistency: constant Severity: moderate Quality: cramping Exacerbating factors: eating and movement Relieving factors: none Associated symptoms: fever/chills, headaches, loss of appetite, malaise, nausea/vomiting and weakness Treatment prior to arrival: other (nausea medications and antibiotics) Related Data Previous Rx's Medication Instructions Recorded ibuprofen 600 mg tablet 600 mg PO Q8H PRN pain #20 tabs 06/24/20 tamsulosin 0.4 mg capsule (Flomax) 0.4 mg PO DAILY #20 caps 06/24/20 ciprofloxacin HCl 500 mg tablet 500 mg PO BID #14 tabs 08/24/23 metronidazole 500 mg tablet 500 mg PO BID 7 days #14 tabs 08/24/23 ondansetron 4 mg disintegrating 4 mg PO Q8H PRN nausea and 08/24/23 tablet vomiting #20 tabs promethazine 25 mg rectal 25 mg [place] Q6H PRN nausea and 08/24/23 suppository vomiting #12 ea Allergies Allergy/AdvReac Type Severity Reaction Status Date / Time No Known Allergies Allergy Verified 08/26/23 08:31 [No Known Allergies*] Review of Systems 2 Review of Systems: Constitutional : No Weight loss, pos Fever, pos Chills ENT/Mouth : No sore throat, No Rhinorrhea Eyes: No Swelling, No Redness Cardiovascular : No Chest Pain, No SOB, NoEdema Respiratory : No Cough, No Sputum, No Wheezing Gastrointestinal : Positive Nausea, Positive Vomiting, positive Diarrhea, positive abdominal Pain, No Hematochezia, No Melena Genitourinary : No Dysuria, No Urinary Frequency, No Hematuria, No Urgency Musculoskeletal : No joint pain, No Myalgias, No Joint Swelling Skin : No Skin Lesions, No rash Neuro : pos Weakness, No Numbness, No Dizziness, No Headache Psych : No Anxiety/Panic, No Depression All other systems reviewed and are negative. Gastrointestinal: Gastrointestinal: Reports nausea PMFSH Past Medical History Attestation statement: The following information was validated with the patient. Medical History No known health problems Social History Social History (Updated 08/26/23 @ 08:45 by Daniela Shaw DO) Patient Tobacco Use Status: Never used Tobacco Substance Use Type: Marijuana Advance Directives: No Advance Directives Information Provided: No Physical Exam 2 Vital Signs: Vital Signs: Last Vital Signs Temp 97.9 F 08/26/23 10:00 Pulse 70 08/26/23 10:00 Resp 16 08/26/23 10:00 BP 124/83 08/26/23 10:00 Pulse Ox 96 08/26/23 10:00 O2 Del Method Room Air 08/26/23 10:00 BMI result Body Mass Index 27.1 Appearance: Alert. Oriented X3. No acute distress. Eyes: Pupils equal, round and reactive to light. ENT: Pharynx dry MM Neck: Normal inspection. Neck supple. CVS: Normal heart rate and rhythm. Pulses normal. Respiratory: No respiratory distress. Breath sounds normal. Abdomen: Soft and moderate lower abdominal ttp no rebound or guarding Skin: Skin warm and dry. pale skin color. Normal skin turgor. Extremities: No lower extremity edema. Neuro: Oriented X 3. No motor deficit. No sensory deficit. Course Course Course Narrative: limited PO intake still with nausea at this time will admit for intractable n/v Reevaluation(s) Reevaluation #1: pain improved with IV morphine Medications Administered Discontinued Medications Generic Name Dose Route Start Last Admin Trade Name Freq PRN Reason Stop Dose Admin Diphenhydramine HCl 25 mg 08/26/23 08:34 08/26/23 10:20 Diphenhydramine Hcl 50 Mg/Ml Vial IVPUSH 08/26/23 08:35 25 mg ONCE ONE Administration Sodium Chloride 1,000 mls @ 999 mls/hr 08/26/23 08:45 08/26/23 11:43 Ns IV 08/26/23 09:45 Infused .Q1H1M NICK Infusion Metoclopramide HCl 10 mg 08/26/23 08:34 08/26/23 10:19 Metoclopramide Hcl 10 Mg/2 Ml Vial IVPUSH 08/26/23 08:35 10 mg ONCE ONE Administration Morphine Sulfate 4 mg 08/26/23 08:33 08/26/23 10:19 Morphine Sulfate 4 Mg/Ml Cartridge IVPUSH 08/26/23 08:34 4 mg ONCE ONE Administration Protocol Medical Decision Making Medical Decision Making MDM Narrative: 27 yo female with no sig PMH here with c/o n/v/d fevers and chills abdominal pain for 8 days with negative stool studies and CT scan with colitis not tolerating PO at home and no improvement on medications from 08/24 at this time will repeat labs and hydrate with IVF and IV morphine for pain. Unless sig lab derangement will hold on repeat CT scan. Possible colitis, viral syndrome, intractable nv Differential Diagnosis Differential Diagnoses: The differential diagnosis associated with the presentation includes colitis, viral syndrome, intractable nv Admission/Observation Consideration of admission/observation: Escalation of care including admission/observation considered patient still has n/v/d and cannot tolerate PO at this time will admit for intractable nv Consult Healthcare Provider Management of the patient was discussed with: Hospitalist (will admit) Lab Data [facility] Lab Attestation statement: I reviewed the patient's lab results. 08/26/23 08:57 08/26/23 08:57 Labs: Lab Results 08/26/23 Range/Units 08:57 WBC 5.1 (4.8-10.8) X10*3/uL RBC 4.52 (4.20-5.50) X10*6/uL Hgb 13.8 (12.0-16.0) g/dl Hct 38.3 (37.0-47.0) % MCV 84.7 (80.0-98.0) fL MCH 30.5 (27.0-33.0) pg MCHC 36.0 H (31.0-35.0) g/dl RDW 11.9 (11.0-16.0) % Plt Count 308 (160-400) X10*3/uL MPV 8.9 L (9.4-12.3) fL Immature Gran % (Auto) 0.8 H (0.0-0.4) % Neut % (Auto) 68.1 (45-73) % Lymph % (Auto) 21.8 (20-40) % [place] % (Auto) 8.3 (2-11) % Eos % (Auto) 0.4 (0-4) % Baso % (Auto) 0.6 (0-2) % Lymph # (Auto) 1.1 L (1.2-4.9) X10*3/uL [place] # (Auto) 0.4 (0.1-1.2) X10*3/uL Eos # (Auto) 0.0 (0.0-0.4) X10*3/uL Baso # (Auto) 0.0 (0.0-0.2) X10*3/uL Abs Immat Gran (auto) 0.04 H (0.00-0.03) X10*3/uL Absolute Neuts (auto) 3.4 (2.0-8.3) x10*3/uL Absolute Nucleated RBC 0.000 (0.0-0.012) X10*3/uL Nucleated RBC % (auto) 0.0 (0.0-0.2) /100WBC ESR 2 (0-20) MM/HR Sodium 141 (135-145) mmol/L Potassium 4.0 (3.3-5.1) mmol/L Chloride 109 H (96-108) mmol/L Carbon Dioxide 25 (22-29) mmol/L Anion Gap 11 L (12-20) BUN 9 (9-16) mg/dL Creatinine 0.79 (0.5-1.4) mg/dL Estim Creat Clear Calc 103.8 Estimated GFR > 60 Random Glucose 103 (60-115) mg/dL Lactic Acid 1.1 (0.5-2.0) mmol/L Calcium 9.3 (8.4-10.2) mg/dL Magnesium 1.8 (1.6-2.6) mg/dL Total Bilirubin 0.5 (0.0-1.0) mg/dL Direct Bilirubin 0.1 (0.0-0.5) mg/dL AST 12 (5-31) U/L ALT 11 (0-31) U/L Alkaline Phosphatase 63 (39-117) U/L C-Reactive Protein < 0.10 (< or = 0.50) mg/dL Total Protein 7.0 (6.5-8.0) g/dL Albumin 4.2 (3.5-5.0) g/dL Lipase 16 (8-78) U/L Independent Historian Clinical information obtained from an independent historian. History obtained from or confirmed by: Spouse External Record Review External record reviewed: Inpatient record Critical Care Time Critical Care Time Critical Care Time: Yes Total Critical Care Time: 35 Attestation: IVF and IV morphine for pain, symptoms did improve I attest to this time spent taking care of the patient Discharge Plan Discharge Clinical Impression: Intractable nausea and vomiting Diarrhea Qualifiers: Diarrhea type: unspecified type Qualified Code(s): R19.7 - Diarrhea, unspecified Patient Disposition: Admitted As Inpatient
[2023-08-26 09:03] LABS: MANUAL DIFF FLAG NO
[2023-08-26 09:05] LABS: Basophils Percent Auto 0.6 % (0-2); Eosinophils Percent Auto 0.4 % (0-4); Hematocrit 38.3 % (37.0-47.0); Hemoglobin 13.8 g/dl (12.0-16.0); Imm Gran Abs Auto 0.04 X10*3/uL (0.00-0.03); Imm Gran Pct Auto 0.8 % (0.0-0.4); Lymphocytes Absolute Auto 1.1 X10*3/uL (1.2-4.9); Lymphocytes Percent Auto 21.8 % (20-40); Mean Corpuscular Hemoglobin 30.5 pg (27.0-33.0); Mean Corpuscular Volume 84.7 fL (80.0-98.0); Mean Platelet Volume 8.9 fL (9.4-12.3); Monocytes Absolute Auto 0.4 X10*3/uL (0.1-1.2); Monocytes Percent Auto 8.3 % (2-11); Neutrophils Absolute Auto 3.4 x10*3/uL (2.0-8.3); Neutrophils Percent Auto 68.1 % (45-73); Platelet Count 308 X10*3/uL (160-400); Red Blood Count 4.52 X10*6/uL (4.20-5.50); Red Cell Distribution Width 11.9 % (11.0-16.0); White Blood Count 5.1 X10*3/uL (4.8-10.8)
[2023-08-26 09:14] LABS: Lactic Acid 1.1 mmol/L (0.5-2.0)
[2023-08-26 09:18] LABS: Alanine Aminotransferase 11 U/L (0-31); Albumin Level 4.2 g/dL (3.5-5.0); Alkaline Phosphatase 63 U/L (39-117); Anion Gap 11 (12-20); Aspartate Amino Transferase 12 U/L (5-31); Bilirubin Direct 0.1 mg/dL (0.0-0.5); Bilirubin Total 0.5 mg/dL (0.0-1.0); Blood Urea Nitrogen 9 mg/dL (9-16); C Reactive Protein < 0.10 mg/dL (< or = 0.50); Calcium 9.3 mg/dL (8.4-10.2); Carbon Dioxide 25 mmol/L (22-29); Chloride 109 mmol/L (96-108); Creatinine Clr Calc Pharmacy 103.8; Estimated Glomerular Filt Rate > 60; Glucose Random 103 mg/dL (60-115); Lipase 16 U/L (8-78); Magnesium 1.8 mg/dL (1.6-2.6); Sodium 141 mmol/L (135-145)
[2023-08-26 09:46] LABS: Erythrocyte Sedimentation Rate 2 MM/HR (0-20)
[2023-08-26 10:00] VITALS: BP 124/83; PULSE 70; RESP 16; TEMP 36.6; O2SAT 96
[2023-08-26] MEDS: 0.9 % Sodium Chloride 1,000 ML 999 ML IV (10:12)
[2023-08-26] MEDS: Metoclopramide HCl 10 MG/2 ML VIAL IVPUSH (10:19)
[2023-08-26] MEDS: Morphine Sulfate 4 MG/ML CARTRIDGE IVPUSH (10:19)
[2023-08-26] MEDS: diphenhydrAMINE HCL 50 MG/ML VIAL 25 MG IVPUSH (10:20)
--- NOTE | 2023-08-26 12:30 | PC.NURSE ---
20g iv inserted LAC, fluids started, meds given as documented. pt tolerated PO challenge.
--- NOTE | 2023-08-26 13:30 | P.HPHOSP_ITS ---
History of Present Illness Date of Service: 08/26/23 Attending physician on admission: Yamile Prater Chief Complaint: Abdominal pain, intractable nausea vomiting Pt is a 27-year-old female with a PMH significant for?nephrolithiasis not on any chronic home medications who presents to the ED with?abdominal pain and intractable nausea, vomiting, diarrhea x1 week. Patient initially presented to the ED 2 days prior on 08/24/2023 after 6 days of nausea, vomiting, diarrhea, and subjective fevers at home. CT of abdomen pelvis showed mild colitis, while C diff and GI panel were negative. Labs reassuring. Pt was sent home on Cipro and Flagyl and anti emetics. Patient presents again today after symptoms have persisted despite compliance with home medications. Reports nausea and vomiting usually began in the morning, though subside by afternoon. Diarrhea, however, persists all day. Abdominal pain is central, epigastric and nonradiating. Reports developing a yesterday. Temperature measured at home as high as 101.0. Also complains of shortness of breath since last prior patient also reports intermittent rectal pain that has been ongoing since shortly prior to other symptoms. States she often feels it when she wipes, and describes it as a ?puffiness? with a type of ?itchy? pain. Has had some mucus in her stool this past week. Denies any hematochezia or melena, no blood on toilet paper when she wipes. In the ED pt's vitals WNL. Labs were grossly unremarkable. Urine test negative. No leukocytosis. Stable H&H. No electrolyte abnormalities. Renal and hepatic function baseline. Lactic acid WNL at 1.1. Pt was treated with IVF, morphine, metoclopramide, Benadryl, famotidine, and Ativan. Pt will be admitted to the hospital for treatment and further evaluation of colitis with intractable nausea, vomiting, diarrhea, abdominal pain that failed outpatient therapy. Review of Systems 2 Review of Systems: Abdominal pain Nausea, vomiting, diarrhea Intermittent rectal pain Shortness of breath Headache PMFSH Medical History (Updated 08/26/23 @ 14:20 by ARAMIS Gotti) Nephrolithiasis No known health problems Social History (Updated 08/26/23 @ 08:45 by Daniela Shaw DO) Patient Tobacco Use Status: Never used Tobacco Substance Use Type: Marijuana Advance Directives: No Advance Directives Information Provided: No Meds Allergies Allergy/AdvReac Type Severity Reaction Status Date / Time No Known Allergies Allergy Verified 08/26/23 08:31 [No Known Allergies*] Active Medications: Current Medications Sodium Chloride (Ns) 1,000 mls @ 100 mls/hr IVCONT .Q10H NICK Physical Exam 2 Vital Signs and Narrative: Vital Signs: Last Vital Signs Temp 97.9 F 08/26/23 10:00 Pulse 70 08/26/23 10:00 Resp 16 08/26/23 10:00 BP 124/83 08/26/23 10:00 Pulse Ox 96 08/26/23 10:00 O2 Del Method Room Air 08/26/23 10:00 BMI result Body Mass Index 27.1 General: AOx3, no acute distress Resp: CTA bilaterally CVS: S1, S2, RRR GI: +BS, no distention, epigastric abdominal tenderness to palpation Skin: Warm, dry Neuro: Cranial nerves II-XII grossly intact bilaterally. Motor grossly intact bilaterally Extremities: No edema Psych: Appropriate affect Results Labs 08/26/23 08:57 08/26/23 08:57 Labs: Laboratory Results - last 24 hr 08/26/23 08:57 MCV 84.7 MCH 30.5 MCHC 36.0 H RDW 11.9 Plt Count 308 MPV 8.9 L Immature Gran % (Auto) 0.8 H Neut % (Auto) 68.1 Lymph % (Auto) 21.8 [place] % (Auto) 8.3 Eos % (Auto) 0.4 Baso % (Auto) 0.6 Lymph # (Auto) 1.1 L [place] # (Auto) 0.4 Eos # (Auto) 0.0 Baso # (Auto) 0.0 Abs Immat Gran (auto) 0.04 H Absolute Neuts (auto) 3.4 Absolute Nucleated RBC 0.000 Nucleated RBC % (auto) 0.0 ESR 2 Anion Gap 11 L Estim Creat Clear Calc 103.8 Estimated GFR > 60 Random Glucose 103 Lactic Acid 1.1 Calcium 9.3 Magnesium 1.8 Total Bilirubin 0.5 Direct Bilirubin 0.1 AST 12 ALT 11 Alkaline Phosphatase 63 C-Reactive Protein < 0.10 Total Protein 7.0 Albumin 4.2 Lipase 16 Assessment and Plan (1) Colitis: Status: Inactive Plan Pt is a 27-year-old female with a PMH significant for?nephrolithiasis not on any chronic home medications who presents to the ED with?abdominal pain and intractable nausea, vomiting, diarrhea x1 week. Patient initially presented to the ED 2 days prior on 08/24/2023 after 6 days of nausea, vomiting, diarrhea, and subjective fevers at home. CT of abdomen pelvis showed mild colitis, while C diff and GI panel were negative. Labs reassuring. Pt was sent home on Cipro and Flagyl and anti emetics. Patient presents again today after symptoms have persisted despite compliance with home medications. Pt will be admitted to the hospital for treatment and further evaluation of colitis with intractable nausea, vomiting, diarrhea, abdominal pain that failed outpatient therapy. Acute colitis Infectious vs inflammatory Pt with intractable N/V/D x1 week Ct of abd/pelvis on 227 with findings suspicious for colitis Labs reassuring, GI panel negative, C diff negative Patient is sent home on Cipro and Flagyl and anti emetics, but symptoms persisted Patient does not meet sepsis criteria: No leukocytosis, fever, tachycardia, or tachypnea Will treat empirically with Zosyn IV Will place on maintenance fluids Anti emetics Analgesics for pain management Famotidine 20 mg p.o. b.i.d. Clear liquid diet for now, advance as tolerated GI consult Rectal pain Patient describes as a ?puffiness? and ?itchy pain? Possibly secondary to external hemorrhoids Treat with cocoa butter hemorrhoid suppository p.r.n. Shortness of breath Unclear etiology: Possibly secondary to abdominal pain and nausea/vomiting Denies cough Will check CXR Full Code Attending:?Dr. Prater DVT Prophylaxis: Lovenox Pt will require a hospitalization of at least two nights for treatment of colitis with intractable nausea, vomiting, diarrhea, abdominal pain that failed outpatient therapy. Given that patient's symptoms have persisted despite adherence to outpatient therapy, patient will require hospitalization for treatment with IVF, IV antiemetics, IV antibiotics, and IV analgesics. Quality Stroke Does the patient have a stroke diagnosis?: No VTE Prior VTE?: No VTE Risk Level:: Medical - moderate - high VTE Device Contraindication: Treatment Not Indicated VTE Drug Contraindication: N/A - Med Ordered
[2023-08-26] MEDS: LORazepam 2 MG/ML VIAL 0.5 MG IVPUSH (13:47)
[2023-08-26] MEDS: Famotidine/PF 20 MG/2 ML VIAL IVPUSH (13:47)
[2023-08-26] MEDS: 0.9 % Sodium Chloride 1,000 ML 100 ML IVCONT (13:53)
--- NOTE | 2023-08-26 14:06 | PHA.MEDREC ---
Pharmacy Consult ? Medication Reconciliation Pharmacy has completed the medication reconciliation. Patient report the only medication she takes are the medications she picked up on wednesday after prescribed them here. Karon Majano, PérezD
[2023-08-26] MEDS: Prochlorperazine Edisylate 10 MG/2 ML VIAL 5 MG IVPUSH (15:39)
[2023-08-26] MEDS: Enoxaparin Sodium 40 MG/0.4 ML SYRINGE SUBCUT (15:40)
[2023-08-26] MEDS: Piperacillin Sodium/Tazobactam 3.375 GM in 0.9 % Sodium Chloride 50 ML IV (15:45)
--- NOTE | 2023-08-26 16:12 | PM.GICN ---
History of Present Illness Data of Consult Service Date: 08/26/23 Requesting physician: Wes Jeff Primary Care Provider: Di Smith MD HPI Reason for consult: Colitis Review of Systems Review of Systems: Yes all other systems are reviewed and are negative [facility] Past Medical History Medical History (Updated 08/26/23 @ 14:20 by ARAMIS Gotti) Nephrolithiasis No known health problems Social History Social History (Updated 08/26/23 @ 08:45 by Daniela Shaw DO) Patient Tobacco Use Status: Never used Tobacco Substance Use Type: Marijuana Advance Directives: No Advance Directives Information Provided: No Meds Allergies Allergy/AdvReac Type Severity Reaction Status Date / Time No Known Allergies Allergy Verified 08/26/23 08:31 [No Known Allergies*] Active Medications: Current Medications Acetaminophen (Acetaminophen 325 Mg Tablet) 650 mg PO Q6H PRN PRN Reason: Pain, Mild (Pain Scale 1-3) Benzonatate (Benzonatate 100 Mg Capsule) 100 mg PO TID PRN PRN Reason: Cough [place] Butter/Zinc Oxide ([place] Butter/Zinc Oxide Supp.Rect) 1 supp [place] BID PRN PRN Reason: Hemorrhoids/Rectal pain Enoxaparin Sodium (Enoxaparin Sodium 40 Mg/0.4 Ml Syringe) 40 mg SUBCUT Q24H [facility] Last Admin: 08/26/23 15:40 Dose: 40 mg Famotidine (Famotidine 20 Mg Tablet) 20 mg PO BID NICK Sodium Chloride (Ns) 1,000 mls @ 100 mls/hr IVCONT .Q10H [facility] Last Admin: 08/26/23 13:53 Dose: 100 mls/hr Piperacillin Sod/Tazobactam (Sod 3.375 gm/ Sodium Chloride) 50 mls @ 100 mls/hr IV Q6H [facility] Last Admin: 08/26/23 15:45 Dose: 100 mls/hr Melatonin (Melatonin 3 Mg Tablet) 6 mg PO BEDTIME PRN PRN Reason: Insomnia Morphine Sulfate (Morphine Sulfate 2 Mg/Ml Cartridge) 2 mg IM Q4H PRN; Protocol PRN Reason: Pain, Severe (Pain Scale 7-10) Ondansetron HCl (Ondansetron Hcl 4 Mg/2 Ml Vial) 4 mg IVPUSH Q8H PRN PRN Reason: Nausea and Vomiting Sodium Chloride (0.9 % Sodium Chloride Flush 3 Ml Syringe) 3 ml IVFLUSH QSHIFT NICK Last Admin: 08/26/23 15:52 Dose: Not Given Physical Exam Vital Signs: Vital Signs: Last Vital Signs Temp 97.9 F 08/26/23 10:00 Pulse 70 08/26/23 10:00 Resp 16 08/26/23 10:00 BP 124/83 08/26/23 10:00 Pulse Ox 96 08/26/23 10:00 O2 Del Method Room Air 08/26/23 10:00 BMI result Body Mass Index 27.1 Results Labs 08/26/23 08:57 08/26/23 08:57 Labs: Short CBC 08/26/23 Range/Units 08:57 WBC 5.1 (4.8-10.8) X10*3/uL Hgb 13.8 (12.0-16.0) g/dl Hct 38.3 (37.0-47.0) % Plt Count 308 (160-400) X10*3/uL BMP 08/26/23 08:57 Sodium 141 Potassium 4.0 Chloride 109 H Carbon Dioxide 25 BUN 9 Creatinine 0.79 Calcium 9.3 Liver Function 08/26/23 Range/Units 08:57 Total Bilirubin 0.5 (0.0-1.0) mg/dL Direct Bilirubin 0.1 (0.0-0.5) mg/dL AST 12 (5-31) U/L ALT 11 (0-31) U/L Alkaline Phosphatase 63 (39-117) U/L Albumin 4.2 (3.5-5.0) g/dL Procedures Date of Service Date of Service: 08/26/23
[2023-08-26 16:33] LABS: Appearance Urine Clear; Color Urine Yellow; Glucose Urine UA Negative (Negative); Leukocyte Esterase Urine Negative (Negative); Nitrite Urine Negative (Negative); PH 6.5 (5.0-9.0); Specific Gravity - Urine 1.015 (1.005-1.025); Urine Blood Negative (Negative); Urine Ketones Trace mg/dL (Negative); Urine Protein Negative (Neg-Trace)
--- NOTE | 2023-08-26 18:20 | MHC.CM.ED ---
CM went to meet with patient regarding discharge planning and patient informed this technical proposal writer that she was declining admission to the hospital and wants to go home. Pt states she has already spoken with her primary RN. CM spoke with Primary RN, who is aware of patient refusal for admission and states hospitalist is aware. Pt is waiting for discharge paperwork.
--- NOTE | 2023-08-26 18:38 | P.DS_ITS ---
DS: Providers Provider Date of Service: 08/26/23 Date of admission: 08/26/23 14:02 Primary care physician: Di Smith MD Consults: 08/26/23 14:07 Consult to Gastroenterology Routine Consulting Provider: Remi Sanchez Reason for consultation: Colitis w/ intractable abdominal pain, n/v/d DS: Diagnosis Discharge Diagnosis (1) Colitis: Status: Inactive DS: Summary Hospital Course Hospital Course: Presenting HPI: Pt is a 27-year-old female with a PMH significant for?nephrolithiasis not on any chronic home medications who presents to the ED with?abdominal pain and intractable nausea, vomiting, diarrhea x1 week. Patient initially presented to the ED 2 days prior on 08/24/2023 after 6 days of nausea, vomiting, diarrhea, and subjective fevers at home. CT of abdomen pelvis showed mild colitis, while C diff and GI panel were negative. Labs reassuring. Pt was sent home on Cipro and Flagyl and anti emetics. Patient presents again today after symptoms have persisted despite compliance with home medications. Reports nausea and vomiting usually began in the morning, though subside by afternoon. Diarrhea, however, persists all day. Abdominal pain is central, epigastric and nonradiating. Reports developing a yesterday. Temperature measured at home as high as 101.0. Also complains of shortness of breath since last prior patient also reports intermittent rectal pain that has been ongoing since shortly prior to other symptoms. States she often feels it when she wipes, and describes it as a ?puffiness? with a type of ?itchy? pain. Has had some mucus in her stool this past week. Denies any hematochezia or melena, no blood on toilet paper when she wipes. In the ED pt's vitals WNL. Labs were grossly unremarkable. Urine test negative. No leukocytosis. Stable H&H. No electrolyte abnormalities. Renal and hepatic function baseline. Lactic acid WNL at 1.1. Pt was treated with IVF, morphine, metoclopramide, Benadryl, famotidine, and Ativan. Pt will be admitted to the hospital for treatment and further evaluation of colitis with intractable nausea, vomiting, diarrhea, abdominal pain that failed outpatient therapy. Hospital course: Patient is seen by GI who plan on doing an EGD tomorrow a.m. if patient's symptoms persisted. Patient grew increasingly anxious during her stay, and felt like she was getting better and did not need any procedures tomorrow and decided to leave AMA. Spoke with patient who understands the risks associated with leaving AMA, up to and including worsening of symptoms with severe abdominal complications. Patient understood risks and still elected to leave AMA. Time Attestation Discharge coordination time: Less than 30 minutes Quality: Safe Use of Opioids Does Pt have an Active Cancer Diagnosis on the Problem List?: No Quality: Stroke Does the patient have a stroke diagnosis?: No Physical Exam Vital Signs: Vital Signs: Last Vital Signs Temp 97.9 F 08/26/23 10:00 Pulse 70 08/26/23 10:00 Resp 16 08/26/23 10:00 BP 124/83 08/26/23 10:00 Pulse Ox 96 08/26/23 10:00 O2 Del Method Room Air 08/26/23 10:00 BMI result Body Mass Index 27.1 Deferred: Patient leaving AMA DS: Data Data Completed and Pending Labs on day of discharge: Laboratory Results - last 24 hr 08/26/23 08/26/23 08:57 16:17 WBC 5.1 RBC 4.52 Hgb 13.8 Hct 38.3 MCV 84.7 MCH 30.5 MCHC 36.0 H RDW 11.9 Plt Count 308 MPV 8.9 L Immature Gran % (Auto) 0.8 H Neut % (Auto) 68.1 Lymph % (Auto) 21.8 [place] % (Auto) 8.3 Eos % (Auto) 0.4 Baso % (Auto) 0.6 Lymph # (Auto) 1.1 L [place] # (Auto) 0.4 Eos # (Auto) 0.0 Baso # (Auto) 0.0 Abs Immat Gran (auto) 0.04 H Absolute Neuts (auto) 3.4 Absolute Nucleated RBC 0.000 Nucleated RBC % (auto) 0.0 ESR 2 Sodium 141 Potassium 4.0 Chloride 109 H Carbon Dioxide 25 Anion Gap 11 L BUN 9 Creatinine 0.79 Estim Creat Clear Calc 103.8 Estimated GFR > 60 Random Glucose 103 Lactic Acid 1.1 Calcium 9.3 Magnesium 1.8 Total Bilirubin 0.5 Direct Bilirubin 0.1 AST 12 ALT 11 Alkaline Phosphatase 63 C-Reactive Protein < 0.10 Total Protein 7.0 Albumin 4.2 Lipase 16 Urine Color Yellow Urine Appearance Clear Urine pH 6.5 Ur Specific [place] 1.015 Urine Protein Negative Urine Glucose (UA) Negative Urine Ketones Trace Urine Blood Negative Urine Nitrite Negative Ur Leukocyte Esterase Negative Discharge Plan Discharge Patient Disposition: Left Against Medical Advice Discharge Diagnosis: Acute colitis Referrals: Di Smith MD [Primary Care Provider] - 1 Week Discharge Medications: No Action ondansetron 4 mg tablet,disintegrating 4 mg PO Q8H PRN (Reason: nausea and vomiting) Qty: 20 0RF metronidazole 500 mg tablet 500 mg PO BID 7 Days Qty: 14 0RF Rx Instructions: x 7 days, finish 09/03/23 ciprofloxacin HCl 500 mg tablet 500 mg PO BID Qty: 14 0RF Rx Instructions: x 7 days, finish 09/03/23 promethazine 25 mg suppository 25 mg ID Q6H PRN (Reason: nausea and vomiting) Qty: 12 0RF Discharge Orders: Discharge Order (Routine); Ordered 08/26/23 Ordered By: Wes Jeff Care Plan Goals: Resolution of abdominal pain, nausea, vomiting, diarrhea Continue home meds and medications prescribed at discharge from last ED visit Health Concerns: Monitor bowel movements Plan of Treatment: Complete course of antibiotics Return to the ED for worsening symptoms Assessment: See discharge summary
== END 2023-08-26 19:20 | disposition left against medical advice (07) | DRG 249 ==
LOC: HO.ED 12:51 → HO.EDOVER 14:14
PROVIDERS: Admitting Provider Student in an Organized Health Care Education/Training Program; Emergency Provider Emergency Medicine; PCP Internal Medicine; Visit Provider Student in an Organized Health Care Education/Training Program
DX: K52.9 Noninfective gastroenteritis and colitis, unspecified (principal); Z87.442 Personal history of urinary calculi
CPT/HCPCS: 36415; 71045; 80048; 80076; 81003; 83605; 83690; 83735; 85025; 85652; 86140; 87040; 99221; 99285; J0737; J1200; J1650; J2060; J2270; J2543; J2765

== ENCOUNTER → 2023-08-26 14:02 | Outpatient (BNV) | payer OTHER, SELFPAY | PROVIDERS: Admitting Provider Student in an Organized Health Care Education/Training Program; Emergency Provider Emergency Medicine; PCP Internal Medicine; Visit Provider Student in an Organized Health Care Education/Training Program | DX: K52.9 Noninfective gastroenteritis and colitis, unspecified (principal) | CPT/HCPCS: 99223; 99499 ==

== ENCOUNTER 2024-09-25 11:34 | Outpatient (REF) | payer OTHER, SELFPAY ==
[2024-09-25 12:34] LABS: MANUAL DIFF FLAG NO
[2024-09-25 12:38] LABS: Basophils Absolute Auto 0.1 X10*3/uL (0.0-0.2); Basophils Percent Auto 0.8 % (0-2); Eosinophils Absolute Auto 0.1 X10*3/uL (0.0-0.4); Eosinophils Percent Auto 1.2 % (0-4); Hematocrit 39.7 % (37.0-47.0); Hemoglobin 13.4 g/dl (12.0-16.0); Imm Gran Abs Auto 0.03 X10*3/uL (0.00-0.03); Imm Gran Pct Auto 0.5 % (0.0-0.4); Lymphocytes Absolute Auto 1.6 X10*3/uL (1.2-4.9); Lymphocytes Percent Auto 26.2 % (20-40); Mean Corpuscular HGB Conc 33.8 g/dl (31.0-35.0); Mean Corpuscular Hemoglobin 30.9 pg (27.0-33.0); Mean Corpuscular Volume 91.7 fL (80.0-98.0); Mean Platelet Volume 9.4 fL (9.4-12.3); Monocytes Absolute Auto 0.7 X10*3/uL (0.1-1.2); Neutrophils Absolute Auto 3.6 x10*3/uL (2.0-8.3); Neutrophils Percent Auto 59.3 % (45-73); Platelet Count 317 X10*3/uL (160-400); Red Blood Count 4.33 X10*6/uL (4.20-5.50); Red Cell Distribution Width 12.1 % (11.0-16.0); White Blood Count 6.1 X10*3/uL (4.8-10.8)
[2024-09-25 12:55] LABS: Estimated Average Glucose 103 mg/dL; Hemoglobin A1C 118.7572 umol/L; Hemoglobin A1c % 5.2 % (<6.0)
[2024-09-25 13:16] LABS: Erythrocyte Sedimentation Rate 1 MM/HR (0-20)
--- OUTSIDE RECORDS SUMMARY | 2024-09-25 13:17 | XMS_ITS | Encounter Summary ---
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 st Contact Info) Description 09/21/2024 Telephone [facility] [address] [place] [address] Mitch Roberts MA Chart Prep Social History Tobacco Use Types Packs/Day Years Used Date Smoking Tobacco: Never Smokeless Tobacco: Never Depression Answer Date Recorded Patient Health Questionnaire-9 Score 8 09/22/2024 Patient Health Questionnaire-9 Score 8 09/22/2024 Last PHQ-9: Questionnaire Data Not on file 0 09/22/2024 Housing Stability Answer Date Recorded What is your housing situation today? I have beth velazquez 09/15/[address] you li ve. Do you have problems with any of the following? None of the above 09/15/2024 Food Insecurity Answer Date Recorded Within the past 12 months, y ou worried that your food would run out before you got money to buy more: Never True 09/15/2024 Within the past 12 months,th e food you bought just didn't last and you didn't have enough money to get more: Never True Transportation Answer Date Recorded In the past 12 months, has l ack of transportation kept you from medical appts, meetings, work or from getting things needed for daily living? No 09/15/2024 Utilities Answer Date Recorded In the past 12 months, has t he electric, gas, oil or water company threatened to shut off services in your home? No 09/15/2024 Depression Answer Date Recorded Patient Health Questionnaire-2 Score 2 09/22/2024 Internet Access Answer Date Recorded Internet Access Q1 Yes 09/15/2024 Internet Access Q2 Not on file 09/15/2024 Comments Unknown Sex and Gender Information Value Date Recorded Sex Assigned at Female 11/03/2023 10:19 AM EDT Legal Sex Female 10:10 AM EDT Gender Identity Female 11/03/2023 10:19 AM EDT Sexual Orientation Choose not to disclose 2023 10:21 AM EDT documented as of this encounter Miscellaneous Notes * Telephone Encounter - Mitch Orantes MA - 09/21/2024 1:48 PM EDT Chart Prep Labs: done Images: not done Vaccines due: yes Referrals: n/a Screenings: pap smear , STI screening, Hep C Overdue care gaps: [place], SDOH, PHQ-9, AMANUEL-7, Disability documented in this encounter Plan of Treatment Upcoming Encounters Date Type Department Care Team (Late st Contact Info) Description 11/28/2024 3:00 PM EDT Office Visit [facility] [address] [place] [address] Marbella Gonzalez 12/22/2024 2:45 PM EDT Office Visit [facility] [address] [place] [address] Agustina Triana FNP [address] [place] [address] documented as of this encounter Visit Diagnoses Not on filedocumented in this encounter
--- OUTSIDE RECORDS SUMMARY | 2024-09-25 13:17 | XMS_ITS | Clinical Summary ---
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 Role Phone Unavailable Primary Care Provider Unavailabl e Immunizations Immunization Administration Dates Next Due DTP 04/17/1996,02/24/1996 DTaP 02/25/2000,07/02/1997,06/19/1996 HPV, Quadrivalent 03/28/2010,04/23/2008,08/05/19 07 Hep A, ped/adol 11/27/2014 Hep B, ped/adol 09/14/1996,01/17/1996,1995 Hib (HbOC) 04/02/1997, 6,04/17/1996, 996 IPV 02/25/2000,07/02/1997 Influenza Split 03/28/2010, 8,05/28/2007, 003 Influenza, injectable, quadrivalent 04/24/2014 MMR 01/31/2001,04/02/1997 Meningococcal Conj (Menactra) MCV4P 11/27/2014,1 OPV 06/19/1996,04/17/1996,03/26/1996 Tdap 04/23/2008 Varicella 03/28/2010,01/04/1997 Family History Relation Name Status Comments Brother 1 Alive Brother: Alive and well, Alive and well Brother 2 Alive Brother: Alive and well, Alive and well Father Father: Alive a nd well, Hypertension Mother Alive Mother: Alive a nd well Other No family histo ry of Seizure disorder, Family history of Obesity, Family history of Asthma, Family history of Hyperlipidemia, No family history of *Heart Disease, Family history of Diabetes mellitus, No family history of Strabismus, No family history of Cancer, No family history of Developmental dislocation of hip, No family history of *CVA/Stroke, No family history of Deafness, No family history of *Sudden /[place] under 55, No family history of ADD/ADHD, No family history of Migraines Social History Tobacco Use Types Packs/Day Years Used Date Smoking Tobacco: Never Comments:Never smoker Comments Unknown Sex and Gender Information Value Date Recorded Sex Assigned at Not on file Legal Sex Female 4:57 PM EDT Gender Identity Not on file Sexual Orientation Not on file Last Filed Vital Signs Vital Sign Reading Time Taken Comments Blood Pressure 110/74 12/12/2014 12:00 AM EDT Pulse 87 12/12/2014 12:00 AM EDT Temperature 37 ??C (98.6 ??F) 12/12/2014 12:00 AM EDT Respiratory Rate - - Oxygen Saturation - - Inhaled Oxygen Concentration - - Weight 63.3 kg (139 lb 9.6 oz) 12/12/2014 12:00 AM EDT Height 161.3 cm (5' 3.5 ) 12/12/2014 12:00 AM ED T Body Mass Index 24.34 12/12/2014 12:00 AM EDT Plan of Treatment Health Maintenance Due Date Last Done Comments Hepatitis A Vaccines (2 of 2 - 2-dose series) 05/29/2015 11/27/2014 DTaP,Tdap,and Td Vaccines (7 - Td or Tdap) 04/23/2018 04/23/2008, 02/25/2000, 07/02/1997, Additional history exists Influenza Vaccines (#1) 2024 04/24/20 14, 03/28/2010, 04/23/2008, Additional history exists COVID-19 Vaccine ( season) 2024 Hepatitis B Vaccines Completed 09/14/1996, 01/17/1996, 1995 HIB Vaccines Completed 04/02/1997, 05/29, 04/17/1996, Additional history exists IPV Vaccines Completed 02/25/2000, 10/1997, 06/19/1996, Additional history exists MMR Vaccines Completed 01/31/2001, 04/02/1997 HPV Vaccines Completed 03/28/2010, 03/29, 08/05/2006 Varicella Vaccines Completed 03/28/2010, 01/04/1997 Meningococcal Vaccine Completed 11/27/2014, 10/01/2 010 Men B Vaccine Aged Out No longer elig ible based on patient's age to complete this topic Pneumococcal Vaccine Aged Out No long er eligible based on patient's age to complete this topic Procedures * Due to [place] TotSpot law, this organization might not be sharing sensitive test results. Procedure Name Priority Date/Time Associated Diagnosis Comments CHLAMYDIA AND GONORRHEA, AMPLIFIED Routine 11/28/2014 2:18 PM EDT from Last 3 Months or Most Recently Relevant to Health Maintenance Results * Due to [place] TotSpot law, this organization might not be sharing sensitive test results. * Chlamydia and Gonorrhoea, Amplified (11/28/2014 2:18 PM EDT) URINE GC AMP PROBE NEGATIVE F [facility] Comment: No Neisseria Gonorrhoeae RNA detected in this patient's sample (REFERENCE RANGE/NORMAL VALUE: NOT DETECTED) NOTE: This test uses yoga coordinator-mediated amplification method to detect rRNA from C.Trachomatis and N.Gonorrhoeae. A negative result does not preclude infection. In the case of a negative urine result, testing of an endocervical(female) or urethral(male) specimen is recommended if there is high clinical suspicion of infection. The performance characteristics of this test have not been evaluated in children. The Aptima Combo2 assay is not intended for the evaluation of suspected sexual abuse or for other medico-legal indications. The ordering provider should assess if the patient had consensual sex without risk of sexual abuse. Consult the [facility] if needed. Contact phone number . Therapeutic failure or success cannot be determined with the Aptima Combo2 assay since nucleic acid may persist following appropriate antimicrobial therapy. The Centers for Disease Control and Prevention (CDC) recommends confirmatory retesting using culture or a different nucleic acid amplification test when positive results occur, if indicated. Testing performed or reported by [facility], a Service of [facility], [address] [place] [id number] Shree Montoya MD, PhD, Rn Iv Therapy URINE CHLAMYDIA AMP PROBE NEGATIVE [facility] Comment: No Chlamydia Trachomatis RNA detected in this patient's sample (REFERENCE RANGE/NORMAL VALUE: NOT DETECTED) 11/28/2014 2:18 PM EDT [facility] - 11/28/2014 2:18 PM EDT URINE CHLAMYDIA GC AMP PROBE us Cassidy Gardiner NP LAB MICROBIOLOGY - GENERAL OR DERABLES Final Result [facility] [address] [place] [address], [place] from Last 3 Months or Most Recently Relevant to Health Maintenance
--- OUTSIDE RECORDS SUMMARY | 2024-09-25 13:17 | XMS_ITS | Encounter Summary ---
Author Organization [employer] Address [address] [place] [address] Care Team Providers Care Psychiatric Rn Name Role Phone Agustina Triana Primary Care Provider [phone] Reason for Referral * Consultation (Routine) - Pending Review Specialty Diagnoses / Procedures Referred By Tess heredia Referred To Contact Gastroenterology Diagnoses Chronic abdominal pain Chronic diarrhea Chronic nausea Agustina Triana FNP [address] [place] [address] Phone: tel: fax: [address] Phone: tel: fax: Referral ID Status Reason Start Date Expiration Date Visits Requested Visits Authorized [id number] Pending Review Specialty Services Required 09/22/2024 09/22/2025 1 1 Encounter Details Date Type Department Care Team ([facility] st Contact Info) Description 09/22/2024 1:15 PM EDT Office Visit [facility] [address] [place] [address] Agustina Triana FNP [address] [place] [address] Chronic nausea (Primary Dx); Healthcare maintenance; Atypical squamous cell changes of undetermined significance (ASCUS) on cervical cytology with 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 virus (HPV); Chronic abdominal pain; Chronic diarrhea; Other eczema Social History Tobacco Use Types Packs/Day Years Used Date Smoking Tobacco: Never Smokeless Tobacco: Never Tobacco Cessation:Counseling Given: Not Answered Alcohol Use Standard Drinks/Week Comments Never 0 (1 standard drink = 0.6 oz pur e alcohol) Depression Answer Date Recorded Patient Health Questionnaire-9 [...] AM EDT documented as of this encounter Last Filed Vital Signs Vital Sign Reading Time Taken Comments Blood Pressure 125/79 09/22/2024 1:09 PM EDT Pulse 83 09/22/2024 1:09 PM EDT Temperature 36.8 ??C (98.3 ??F) 09/22/2024 1:09 PM ED T Respiratory Rate 22 09/22/2024 1:09 PM EDT Oxygen Saturation 99% 09/22/2024 1:09 PM EDT Inhaled Oxygen Concentration - - Weight 54.1 kg (119 lb 4 oz) 09/22/2024 1:09 PM EDT Height 161.7 cm (5' 3.66 ) 09/22/2024 1:09 PM ED T Body Mass Index 20.69 09/22/2024 1:09 PM EDT documented in this encounter Progress Notes * YO Maciel - 09/22/2024 1:15 PM EDT Subjective: Sapna Bazzi is a 28 y.o. female who presents to the office for a new patient visit. Interim history: - Transferring care from [facility] [place]. Current concerns: Chronic abdominal pain, nausea, diarrhea: Sapna reports onset of symptoms July 2023. Started with abdominal cramping, nausea, vomiting, loss of appetite. Would experience daily bouts of nausea and vomiting every morning. No blood or mucus in stool. Previously healthy without any GI symptoms. Underwent workup through [facility] gastroenterology including a colonoscopy in October 2023 which did not demonstrate any notable pathology. She has also completed lab work and stool studies, although unclearwhich specific tests have been performed. Reports that over the past year, the frequency of the symptoms has improved/decreased. Currently experiencing nausea and dry heaving in the morning approximately 4 to 5 days/week. Still able to attend work. Zofran has been the only helpful intervention thusfar. She had used dicyclomine in the past with limited response. Does not seem to be affected by food consumption/food triggers. Lactose-free household due to partner being lactose intolerant. Has lost approximately 35lbs unintentionally over the past year (Weight 154lbs on 08/31/23, 119lbs on 09/22/24). Says that her appetite has improved since initial symptom onset last year. Denies any fevers, chills, night sweats, rashes, or any other associated symptoms. Denies tobacco or marijuana use. Symptoms worsen around menses. Available imaging: CT Abd/pelvis May 2024: There is a short segment of small bowel intussusception without evidence of high-grade obstruction.This can be a transient phenomenon but is nonspecific especially given the episodic symptoms described. Somewhat patchy nephrograms. Correlate with any clinical evidence of urinary tract infection. Large amount of fecal residue distends the rectum. Abdominal US Jun 2024: Normal right upper quadrant ultrasound. Patient Active Problem List Diagnosis Atypical squamous cell changes of undetermined significance (ASCUS) on cervical cytology with 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 virus (HPV) Eczema Chronic nausea Healthcare maintenance Chronic diarrhea Past Medical History: Diagnosis Date Fibroadenoma of breast Past Surgical History: Procedure Laterality Date WISDOM TOOTH EXTRACTION Family History Problem Relation Name Age of Onset Hypertension Father Shukri Bazzi Kidney disease Father Shukri Bazzi Diabetes Maternal Grandmother Viki Liaodal Hypertension Maternal Grandmother Viki Liaodal Stroke Maternal Grandmother Viki Liaodal Asthma Brother Rafael Bazzi Patient's last menstrual period was 09/13/2024 (exact date). No Known Allergies Review of Systems Constitutional: Negative for chills and fever. Respiratory: Negative for cough, shortness of breath and wheezing. Cardiovascular: Negative for chest pain and palpitations. Gastrointestinal: Positive for abdominal pain, constipation, diarrhea, nausea and vomiting. Negative for anal bleeding and blood in stool. Genitourinary: Negative for dysuria, frequency and hematuria. Musculoskeletal: Negative for arthralgias and myalgias. Neurological: Negative for headaches. Psychiatric/Behavioral: Negative for suicidal ideas. Visit Vitals BP 125/79 (BP Location: Left arm, Patient Position: Sitting, BP Cuff Size: Adult) Pulse 83 Temp 98.3 ??F (36.8 ??C) (Oral) Resp 22 Ht 5' 3.66 (1.617 m) Wt 119 lb 4 oz (54.1 kg) LMP 09/13/2024 (Exact Date) SpO2 99% BMI 20.69 kg/m?? Smoking Status Never BSA 1.56 m?? Physical Exam Constitutional: Appearance: Normal appearance. HENT: Head: Atraumatic. Right Ear: External ear normal. Left Ear: External ear normal. Cardiovascular: Rate and Rhythm: Normal rate and regular rhythm. Pulmonary: Effort: Pulmonary effort is normal. Breath sounds: Normal breath sounds. Abdominal: Palpations: Abdomen is soft. Tenderness: There is no guarding. Neurological: Mental Status: She is alert and oriented to person, place, and time. Psychiatric: Mood and Affect: Mood normal. Behavior: Behavior normal. Problem List Items Addressed This Visit Digestive Chronic nausea - Primary Current Assessment & Plan Abrupt symptom onset July 2023 (previously healthy). gradual improvement throughout the year Differential includes IBS, IBD, intussusception, SIBO, disorder of gut-brain interaction, H pylori,endometriosis, other Colonoscopy October 2023 within normal limits, requesting labs/stool sample results from [facility] (+) unintentional weight loss ~35lbs over past year Referral to [facility] for further eval, consideration of endoscopy Encouraged probiotic use and monitoring for potential triggers Follow up precautions Relevant Medications ondansetron ODT (Zofran-ODT) 4 MG disintegrating tablet Other Relevant Orders Referral to Gastroenterology Chronic diarrhea Current Assessment & Plan See R11.0 Relevant Orders Referral to Gastroenterology Infectious/Inflammatory Eczema Current Assessment & Plan - Currently well-controlled with Cetaphil. Follow-up with any worsening of symptoms for consideration of CeraVe/triamcinolone compound cream Other Atypical squamous cell changes of undetermined significance (ASCUS) on cervical cytology with 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 virus (HPV) Overview 05/06/2021 ASCUS, HPV pos 07/11/2021 Colpo TRISTA 1 08/01/24: NILM, HPV neg Healthcare maintenance Overview Pap: NILM, HPV neg on 08/01/24. Previous: 05/06/2021, ASCUS HPV positive, followed by colpo CIN1 Relevant Orders Lipid Panel, Standard Hemoglobin A1c TSH with Reflex to Free T4 Comprehensive Metabolic Panel CBC auto differential Chlamydia/N. Gonorrhoeae RNA, TMA, Urogenitial Hepatitis C Viral RNA, Quantitative, Real-Time PCR RPR (Monitor) with Reflex to Titer HIV-1/2 Antigen and Antibodies, Fourth Generation, with Reflexes Celiac Disease Comprehensive Panel Sed Rate by Modified Westergren C-reactive Protein Vitamin D, 25-Hydroxy, Total, Immunoassay Other Visit Diagnoses Chronic abdominal pain Relevant Orders Referral to Gastroenterology Follow up: 3 months for Physical, sooner as needed. Current Outpatient Medications Medication Sig Dispense Refill dicyclomine (Bentyl) 10 MG capsule Take 10 mg by mouth if needed in the morning, at noon, in the evening, and at bedtime. ondansetron ODT (Zofran-ODT) 4 MG disintegrating tablet Take 1 tablet (4 mg) by mouth every 8 (eight) hours if needed for nausea or vomiting. 30 tablet 3 No current facility-administered medications for this visit. Immunization History Administered Date(s) Administered DTP 02/24/1996, 04/17/1996 DTaP 06/19/1996, 07/02/1997, 02/25/2000 DTaP / HiB / IPV 02/24/1996, 04/17/1996, 06/19/1996, 04/02/1997 HPV, Quadrivalent 08/05/2006, 04/23/2008, 03/28/2010 Hep A, ped/adol, 2 dose 11/27/2014 Hep B, Adolescent or Pediatric 1995, 01/17/1996, 09/14/1996 Hib (HbOC) 02/24/1996, 04/17/1996, 06/19/1996, 04/02/1997 IPV 07/02/1997, 02/25/2000 Influenza Injectable Quadrivalant Preservative Free IIV4 MDCK 09/01/2018 Influenza injectable quadrivalent IIV4 with preservative 04/24/2014 Influenza, IIV3, injectable 05/07/2003, 05/28/2007, 04/23/2008, 03/28/2010, 04/24/2014 Influenza, Split (incl. purified surface antigen) 05/07/2003, 05/28/2007, 04/23/2008, 03/28/2010 MMR 04/02/1997, 01/31/2001 Meningococcal MCV4P [id number]-135 03/28/2010, 11/27/2014 OPV, Trivalent 02/24/1996, 03/26/1996, 04/17/1996, 06/19/1996 OPV, Unspecified 02/24/1996, 04/17/1996, 06/19/1996 PPD Test 03/16/2022 Pfizer Covid-19 Vaccine 12+ 11/28/2020, 12/20/2020 Tdap 04/23/2008, 10/05/2018 Varicella 01/04/1997, 03/28/2010, 03/24/2022 documented in this encounter Miscellaneous Notes * Assessment & Plan Note - YO Maciel - 09/24/2024 9:54 AM EDTAssociated Problem(s): Chronic nausea Abrupt symptom onset July 2023 (previously healthy). gradual improvement throughout the year Differential includes IBS, IBD, intussusception, SIBO, disorder of gut-brain interaction, H pylori,endometriosis, other Colonoscopy October 2023 within normal limits, requesting labs/stool sample results from [facility] (+) unintentional weight loss ~35lbs over past year Referral to [facility] for further eval, consideration of endoscopy Encouraged probiotic use and monitoring for potential triggers Follow up precautions * Assessment & Plan Note - YO Maciel - 09/24/2024 9:48 AM EDTAssociated Problem(s): Chronic diarrhea See R11.0 * Assessment & Plan Note - YO Maciel - 09/24/2024 9:37 AM EDTAssociated Problem(s): Eczema - Currently well-controlled with Cetaphil. Follow-up with any worsening of symptoms for consideration of CeraVe/triamcinolone compound cream documented in this encounter Plan of Treatment Upcoming Encounters Date Type Department Care Team (Late st Contact Info) Description 11/28/2024 3:00 PM EDT Office Visit [facility] [address] [place] [address] Marbella Gonzalez 12/22/2024 2:45 PM EDT Office Visit [facility] [address], [place] [phone] Agustina Triana FNP [address] [place], [place] [phone] Scheduled Orders Name Type Priority Associated Diagnoses Orde r Schedule Lipid Panel, Standard Lab Routine Healthcare maintenance Expected: 09/22/2024 (Approximate), Expires: 09/22/2025 TSH with Reflex to Free T4 Lab Routine Healthcare maintenance Expected: 09/22/2024 (Approximate), Expires: 09/22/2025 Comprehensive Metabolic Panel Lab Routine Healthcare maintenance Expected: 09/22/2024 (Approximate), Expires: 09/22/2025 Chlamydia/N. Gonorrhoeae RNA, TMA, Urogenitial Microbiology Routine Healthcare maintenance Expected: 09/22/2024, Expires: 09/22/2025 Hepatitis C Viral RNA, Quantitative, Real-Time PCR Lab Routine Healthcare maintenance Expected: 09/22/2024 (Approximate), Expires: 09/22/2025 RPR (Monitor) with Reflex to??Titer Lab Routine Healthcare maintenance Expected: 09/22/2024 (Approximate), Expires: 09/22/2025 HIV-1/2 Antigen and Antibodies, Fourth Generation, with Reflexes Lab Routine Healthcare maintenance Expected: 09/22/2024 (Approximate), Expires: 09/22/2025 Celiac Disease Comprehensive Panel Lab Routine Healthcare maintenance Expected: 09/22/2024, Expires: 09/22/2025 Sed Rate by Modified Westergren Lab Routine Healthcare maintenance Expected: 09/22/2024, Expires: 09/22/2025 C-reactive Protein Lab Routine Healthcare maintenance Expected: 09/22/2024 (Approximate), Expires: 09/22/2025 Vitamin D, 25-Hydroxy, Total, Immunoassay Lab Routine Healthcare maintenance Expected: 09/22/2024 (Approximate), Expires: 09/22/2025 Scheduled Referrals Name Type Priority Associated Diagnoses Order Schedule Referral to Gastroenterology Outpatient Referral Routine Chronic abdominal pain Chronic diarrhea Chronic nausea Expected: 09/22/2024 (Approximate), Expires: 09/22/2025 documented as of this encounter Procedures Procedure Name Priority Date/Time Associated Diagnosis Comments CBC WITH AUTO DIFFERENTIAL Routine 09/25/2024 11:37 AM EDT Healthcare maintenance HEMOGLOBIN A1C Routine 09/25/2024 11:37 AM EDT Healthcare maintenance documented in this encounter Results * (ABNORMAL) CBC auto differential (09/25/2024 11:37 AM EDT) White Blood Count 6.1 4.8 - 10.8 X10*3/uL [facility] Red Blood Count 4.33 4.20 - 5.50 X10*6/uL [facility] Hemoglobin 13.4 12.0 - 16.0 g/dl [facility] Hematocrit 39.7 37.0 - 47.0 % [facility] Mean Corpuscular Volume 91.7 80.0 - 98.0 fL [facility] Mean Corpuscular Hemoglobin 30.9 27.0 - 33.0 pg [facility] Mean Corpuscular HGB Conc 33.8 31.0 - 35.0 g/dl [facility] Red Cell Distribution Width 12.1 11.0 - 16.0 % [facility] Platelet Count 317 160 - 400 X10*3/uL [facility] Mean Platelet Volume 9.4 9.4 - 12.3 fL [facility] Neutrophils Percent Auto 59.3 45 - 73 % [facility] Imm Gran Pct Auto 0.5(H) 0.0 - 0.4 % [facility] Lymphocytes Percent Auto 26.2 20 - 40 % [facility] Monocytes Percent Auto 12.0(H) 2 - 11 % [facility] Eosinophils Percent Auto 1.2 0 - 4 % [facility] Basophils Percent Auto 0.8 0 - 2 % [facility] NRBC Pct Auto 0.0 0.0 - 0.2 /100WBC [facility] Neutrophils Absolute Auto 3.6 2.0 - 8.3 x10*3/uL [facility] Imm Gran Abs Auto 0.03 0.00 - 0.03 X10*3/uL [facility] Lymphocytes Absolute Auto 1.6 1.2 - 4.9 X10*3/uL [facility] Monocytes Absolute Auto 0.7 0.1 - 1.2 X10*3/uL [facility] Eosinophils Absolute Auto 0.1 0.0 - 0.4 X10*3/uL [facility] Basophils Absolute Auto 0.1 0.0 - 0.2 X10*3/uL [facility] NRBC Abs Auto 0.000 0.0 - 0.012 X10*3/uL [facility] Blood Venous blood specimen / Unknown 09/25/2024 11:37 AM EDT 09/25/2024 12:30 PM EDT Agustina RAM LAB BLOOD ORDERABLES Final Res ult Performing Organization Address [facility] de Phone Number [facility] [address] [place] [address] [phone] * Hemoglobin A1c (09/25/2024 11:37 AM EDT) Hemoglobin A1c 5.2 <6.0 % [facility] Comment:Hemoglobin A1C Refer ence Range Adults: 4.8 - 6.0 % Non diabetic: < 6.0 % Goal: < 7.0 %Additional Action Suggested: > 8.0 %Note: Hemoglobin A1c results are invalid for patients with abnormal amounts of HbF. Blood transfusions may impact the HbA1c concentration in the patient sample. Estimated Average Glucose 103 mg/dL [facility] Comment:eAG = Estimated ave rage glucose which is %A1C expressed asaverage glucose, using the formula of the [id number] Glucose study (ADAG), Diabetes Care, Vol.31,#8,Jan. 2007 Blood Venous blood specimen / Unknown 09/25/2024 11:37 AM EDT 09/25/2024 12:30 PM EDT Agustina RAM LAB BLOOD ORDERABLES Final Res ult Performing Organization Address [facility] Co de Phone Number [facility] [address] [place] [address] [phone] documented in this encounter Visit Diagnoses Diagnosis Chronic nausea- Primary Nausea alone Healthcare maintenance Atypical squamous cell changes of undetermined significance (ASCUS) on cervical cytology with 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 virus (HPV) Chronic abdominal pain Abdominal pain, unspecified site Chronic diarrhea Diarrhea Other eczema documented in this encounter Additional Health Concerns Assessment Noted Time PHQ-9 Depression Total Score: 8 09/23/19 25 2:22 PM EDT documented as of this encounter Care Teams Psychiatric Rn Relationship Specialty Start Date End Date Agustina Triana FNP [address] [place] [address] PCP - General Family Medicine 09/22/24 documented as of this encounter
--- OUTSIDE RECORDS SUMMARY | 2024-09-25 13:17 | XMS_ITS | Encounter Summary ---
Author Organization [facility] Address [address] [place] [address] Phone Care Team Providers Care Alarm Operator Name Role Phone Unavailable Primary Care Provider Unavailabl e Encounter Details Date Type Department Care Team (Late st Contact Info) Description 10/17/2012 Documentation [facility] [address] [place] [address] Family Medicine, Physician [facility] [place] [address] Social History Tobacco Use Types Packs/Day Years Used Date Smoking Tobacco: Never Assessed Comments Unknown Sex and Gender Information Value Date Recorded Sex Assigned at Not on file Legal Sex Female 4:57 PM EDT Gender Identity Not on file Sexual Orientation Not on file documented as of this encounter Plan of Treatment Not on file documented as of this encounter Visit Diagnoses Not on filedocumented in this encounter
--- OUTSIDE RECORDS SUMMARY | 2024-09-25 13:17 | XMS_ITS | Encounter Summary ---
Author Organization [employer] Address [address] [place] [address] Care Team Providers Care C Software Developer Name Role Phone Agustina Triana BEET FLUMER Primary Care Provider [phone] Encounter Details Date Type Department Care Team (Latest Contact Info) Description 09/22/2024 Travel Social History Tobacco Use Types Packs/Day Years Used Date Smoking Tobacco: Never Smokeless Tobacco: Never Alcohol Use Standard Drinks/Week Comments Never 0 [...] AM EDT documented as of this encounter Plan of Treatment Upcoming Encounters Date Type Department Care Team (Late st Contact Info) Description 11/28/2024 3:00 PM EDT Office Visit [facility] [address] [place], [place] [phone] Marbella Gonzalez 12/22/2024 2:45 PM EDT Office Visit [facility]ED[facility] [address] [place] [address] Agustina Triana FNP [address] [place] [address] documented as of this encounter Visit Diagnoses Not on filedocumented in this encounter Additional Health Concerns Assessment Noted Time PHQ-9 Depression Total Score: 8 09/23/19 25 2:22 PM EDT documented as of this encounter Care Teams C Software Developer Relationship Specialty Start Date End Date Agustina Triana FNP [address] [place] [address] PCP - General Family Medicine 09/22/24 documented as of this encounter
--- OUTSIDE RECORDS SUMMARY | 2024-09-25 13:17 | XMS_ITS | Clinical Summary ---
Author Organization [employer] Address [address] [facility] [address] [place] [address] Care Team Providers Care Short Story Writer Name Role Phone Agustina Triana YO Primary Care Provider [phone] Allergies No known active allergies Medications dicyclomine (Bentyl) 10 MG capsule Take 10 mg by mouth if needed in the morning, at noon, in the evening, and at bedtime. Active ondansetron ODT (Zofran-ODT) 4 MG disintegrating tabletIndications :Chronic nausea Take 1 tablet (4 mg) by mouth every 8 (eight) hours if needed for nausea or vomiting. 30 tablet 3 025 2025 Active Bisacodyl EC 5 MG EC tablet TAKE 2 TABLETS BY MOUTH ONCE right BEFORE YOUR first DOSE OF liquid PREPARATION 024 2024 Discontinued(T herapy completed) Xulane 150-35 MCG/24HR APPLY 1 PATCH TO CLEAN DRY SKIN ONCE A WEEK ON THE SAME DAY FOR 3 WEEKS. REMOVE FOR 1 WEEK, THEN RESTART CYCLE. 025 2024 Discontinued(T herapy completed) ondansetron (Zofran) 4 MG tablet TAKE 1 TABLET EVERY 8 HOURS NEEDED FOR NAUSEA AND VOMITING 2024 Discontinued Active Problems Problem Noted Date Diagnosed Date Chronic diarrhea 09/24/2024 Assessment & Plan (09/24/2024 9:49 AM EDT): See R11.0 Healthcare maintenance 09/22/2024 Overview (09/24/2024): Pap: NILM, HPV neg on 08/01/24. Previous: 05/06/2021, ASCUS HPV positive, followed by colpo CIN1 Chronic nausea 08/01/2024 Assessment & Plan (09/24/2024 9:54 AM EDT): Abrupt symptom onset July 2023 (previously healthy). gradual improvement throughout the year Differential includes IBS, IBD, intussusception, SIBO, disorder of gut-brain interaction, H pylori, endometriosis, other Colonoscopy October 2023 within normal limits, requesting labs/stool sample results from [facility] (+) unintentional weight loss ~35lbs over past year Referral to [facility] for further eval, consideration of endoscopy Encouraged probiotic use and monitoring for potential triggers Follow up precautions Eczema 05/12/2024 Assessment & Plan (09/24/2024 9:37 AM EDT): - Currently well-controlled with Cetaphil. Follow-up with any worsening of symptoms for consideration of CeraVe/triamcinolone compound cream Atypical squamous cell kumar es of undetermined significance (ASCUS) on cervical cytology with 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 virus (HPV) 07/15/2021 Overview (09/24/2024): 05/06/2021 ASCUS, HPV pos 07/11/2021 Colpo TRISTA 1 08/01/24: NILM, HPV neg Encounters Date Type Department Care Team Description 09/22/2024 1:15 PM EDT Office Visit [facility] [address] [place] [address] Agustina Triana FNP Chronic nausea (Primary Dx); Healthcare maintenance; Atypical squamous cell changes of undetermined significance (ASCUS) on cervical cytology with 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 virus (HPV); Chronic abdominal pain; Chronic diarrhea; Other eczema 09/22/2024 Travel 09/21/2024 Telephone [facility] [address] [place] [address] Mitch Roberts MA Chart Prep 09/15/2024 Patient Outreach [facility] [address] [place] [address] Agustina Triana FNP Pre-visit Planning (SDOH negative, Tobacco screening negative) 09/15/2024 Travel from Last 3 Months Immunizations Name Administration Dates Next Due DTP 04/17/1996,02/24/1996 DTaP 02/25/2000,07/02/1997,06/19/1996 DTaP / HiB / IPV 04/02/1997, 6,04/17/1996,02/23 HPV, Quadrivalent 03/28/2010,04/23/2008,08/05/19 07 Hep A, ped/adol, 2 dose 11/27/2014 Hep B, Adolescent or Pediatric 09/14/1996,1995,1995 Hib (HbOC) 04/02/1997, 6,04/17/1996,02/23 IPV 02/25/2000,07/02/1997 Influenza Injectable Quadriv alant Preservative Free IIV4 MDCK 09/01/2018 Influenza injectable quadriv alent IIV4 with preservative 04/24/2014 Influenza, IIV3, injectable 04/24/2014,1 ,04/23/2008,05/28,05/07/2003 Influenza, Split (incl. clarissa fied surface antigen) 03/28/2010,04/23/2008,05/28/2007,05/07 MMR 01/31/2001,04/02/1997 Meningococcal MCV4P [id number]-135 11/27/2014,03/28/20 10 OPV, Trivalent 06/19/1996, 6,03/26/1996,02/23 OPV, Unspecified 06/19/1996,04/17/1996, 6 PPD Test 03/16/2022 Tdap 10/05/2018,04/23/2008 Varicella 03/24/2022,03/28/2010,01/04/1997 Family History Medical History Relation Name Comments Asthma Brother Rafael Bazzi Hypertension Father Yanetfabian Bazzi Kidney disease Father Shukri Bazzi Diabetes Maternal Grandmother Viki Liaodal Hypertension Maternal Grandmother Viki Reg Stroke Maternal Grandmother Viki Finney Relation Name Status Comments Brother Rafael Bazzi Father Shukri Bazzi Maternal Grandmother Viki Finney Social History Tobacco Use Types Packs/Day Years [...] your housing situation today? I have beth caroline 09/15/[address] you li [...] not to disclose 2023 10:21 AM EDT Last Filed Vital Signs Vital Sign Reading [...] Mass Index 20.69 09/22/2024 1:09 PM EDT Plan of Treatment Upcoming Encounters Date Type Department Care Team (Late st Contact Info) Description 11/28/2024 3:00 PM EDT Office Visit [facility] [address] [facility], [place] [phone] Marbella Gonzalez 12/22/2024 2:45 PM EDT Office Visit [facility] [address] [place], [place] [phone] Agustina Triana FNP [address] [place], [place] [phone] Health Maintenance Due Date Last Done Comments HIV Screening 1995 Alcohol/Substance Use Screening 2007 Family Planning (PISQ) 12/15/2010 Hepatitis C Screening 12/15/2013 Hepatitis A Vaccines (2 of 2 - 2-dose series) 05/29/2015 11/27/2014 Pap Smear 12/15/2016 COVID-19 Vaccine ( season) 2024 12/20/2020, 11/28/2020 Influenza Vaccine (#1) 2024 9, 04/24/2014, 04/24/2014, Additional history exists Dental Oral Exam 10/18/2024 04/18/2024 Dental Prophylaxis 10/18/2024 04/18/2024 Dental X-Ray: Bitewings 04/19/2025 04/18/2024 Depression Screening 09/22/2025 09/22/2024, 09/23/19 SDOH Screening 09/22/2025 09/22/2024 Tobacco Screening 09/22/2025 09/22/2024 Dental X-Ray: Full Mouth 04/19/2027 04/18/2024 DTaP/Tdap/Td Vaccines (8 - Td or Tdap) 10/05/2028 10/05/2018, 04/23/2008, 02/25/2000, Additional history exists Zoster Vaccines (1 of 2) 12/15/2045 RSV Patients and Patients Aged 60 years or older (1 - 1-dose 75+ series) 12/15/2070 Hepatitis B Vaccines Completed 09/14/1996, 01/17/1996, 1995 HIB Vaccines Completed 04/02/1997, 11/1996, 06/19/1996, Additional history exists IPV Vaccines Completed 02/25/2000, 10/1997, 04/02/1997, Additional history exists HPV Vaccines Completed 03/28/2010, 03/29, 08/05/2006 Meningococcal Vaccine Completed 11/27/2014, 010 Pneumococcal Vaccine: Pediatrics (0 to 5 Years) and At-Risk Patients (6 to 49) Years) Aged Out No longer eligible based on patient's age to complete this topic RSV under 20 months Aged Out No longe r eligible based on patient's age to complete this topic Rotavirus Vaccines Aged Out No longer eligible based on patient's age to complete this topic Procedures Procedure Name Priority Date/Time Associated Diagnosis Comments CBC WITH AUTO DIFFERENTIAL Routine 09/25/2024 11:37 AM EDT Healthcare maintenance HEMOGLOBIN A1C Routine 09/25/2024 11:37 AM EDT Healthcare maintenance PROPHYLAXIS - ADULT Routine 04/18/2024 3 :00 PM EDT Dental calculus Dental plaque INTRAORAL - COMPLETE SERIES OF RADIOGRAPHIC IMAGES Routine 04/18/2024 3:00 PM EDT PERIODIC ORAL EVALUATION - ESTABLISHED PATIENT Routine 04/18/2024 3:00 PM EDT from Last 3 Months or Most Recently Relevant to Health Maintenance Results * (ABNORMAL) CBC auto differential (09/25/2024 11:37 AM EDT) White Blood Count 6.1 4.8 - 10.8 X10*3/uL [facility] Red Blood Count 4.33 4.20 - 5.50 X10*6/uL [facility] Hemoglobin 13.4 12.0 - 16.0 g/dl [facility] Hematocrit 39.7 37.0 - 47.0 % [facility] Mean Corpuscular Volume 91.7 80.0 - 98.0 fL [facility] Mean Corpuscular Hemoglobin 30.9 27.0 - 33.0 pg [facility] Mean Corpuscular HGB Conc 33.8 31.0 - 35.0 g/dl [facility] Red Cell Distribution Width 12.1 11.0 - 16.0 % [facility] Platelet Count 317 160 - 400 X10*3/uL [facility] Mean Platelet Volume 9.4 9.4 - 12.3 fL [facility] Neutrophils Percent Auto 59.3 45 - 73 % [facility] Imm Gran Pct Auto 0.5(H) 0.0 - 0.4 % [facility] Lymphocytes Percent Auto 26.2 20 - 40 % [facility] Monocytes Percent Auto 12.0(H) 2 - 11 % [facility] Eosinophils Percent Auto 1.2 0 - 4 % [facility] Basophils Percent Auto 0.8 0 - 2 % [facility] NRBC Pct Auto 0.0 0.0 - 0.2 /100WBC [facility] Neutrophils Absolute Auto 3.6 2.0 - 8.3 x10*3/uL [facility] Imm Gran Abs Auto 0.03 0.00 - 0.03 X10*3/uL [facility] Lymphocytes Absolute Auto 1.6 1.2 - 4.9 X10*3/uL [facility] Monocytes Absolute Auto 0.7 0.1 - 1.2 X10*3/uL [facility] Eosinophils Absolute Auto 0.1 0.0 - 0.4 X10*3/uL [facility] Basophils Absolute Auto 0.1 0.0 - 0.2 X10*3/uL [facility] NRBC Abs Auto 0.000 0.0 - 0.012 X10*3/uL [facility] Blood Venous blood specimen / Unknown 09/25/2024 11:37 AM EDT 09/25/2024 12:30 PM EDT Agustina Triana FREELANCE PROGRAMMER/APP DEVELOPER LAB BLOOD ORDERABLES Final Res ult Performing Organization Address [facility] Co de Phone Number [facility] [address] [place] [address] [phone] * Hemoglobin A1c (09/25/2024 11:37 AM EDT) Hemoglobin A1c 5.2 <6.0 % [facility] Comment:Hemoglobin A1C Refer ence Range Adults: 4.8 - 6.0 % Non diabetic: < 6.0 % Goal: < 7.0 %Additional Action Suggested: > 8.0 %Note: Hemoglobin A1c results are invalid for patients with abnormal amounts of HbF. Blood transfusions may impact the HbA1c concentration in the patient sample. Estimated Average Glucose 103 mg/dL [facility] Comment:eAG = Estimated ave rage glucose which is %A1C expressed asaverage glucose, using the formula of the [id number] Glucose study (ADAG), Diabetes Care, Vol.31,#8,Jan. 2007 Blood Venous blood specimen / Unknown 09/25/2024 11:37 AM EDT 09/25/2024 12:30 PM EDT us Agustina Triana FREELANCE PROGRAMMER/APP DEVELOPER LAB BLOOD ORDERABLES Final Res ult Performing Organization Address [facility] Co de Phone Number [facility] [address] [place] [address] [phone] from Last 3 Months Insurance DENTAL - [facility] [employer] Care Teams Short Story Writer Relationship Specialty Start Date End Date Agustina Triana FNP [address] [place] [phone] PCP - General Family Medicine 09/22/24
--- OUTSIDE RECORDS SUMMARY | 2024-09-25 13:17 | XMS_ITS | Encounter Summary ---
Author Organization [facility] Address [address] [place] [address] Phone Care Team Providers Care Green Chain Worker Name Role Phone Unavailable Primary Care Provider Unavailabl e Encounter Details Date Type Department Care Team (Late st Contact Info) Description 04/26/2014 Documentation [facility] [place] [facility] [address] [place] [address] Family Medicine, Physician [place] [address] Social History Tobacco Use Types [...]
--- OUTSIDE RECORDS SUMMARY | 2024-09-25 13:17 | XMS_ITS | Encounter Summary ---
Author Organization [facility] Address [address] [place] [address] Phone Care Team Providers Care Reservation Agent Name Role Phone Unavailable Primary Care Provider Unavailabl e Encounter Details Date Type Department Care Team (Late st Contact Info) Description 02/11/2017 Conversion Encounter [facility] - [address] [phone] Social History Tobacco Use Types Packs/Day Years [...]
--- OUTSIDE RECORDS SUMMARY | 2024-09-25 13:17 | XMS_ITS | Clinical Summary ---
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 Apply 1 patch each week for 3 weeks, then remove for 1 week. 9 patch 1 5 12/26/19 25 Active ondansetron (ZOFRAN) 4 mg tablet Take 1 tablet (4 mg total) by mouth every 8 (eight) hours if needed for nausea or vomiting for up to 7 days. 21 tablet 5 09/06/19 25 Active Problems Problem Noted Date Diagnosed Date Nausea and vomiting in adult 08/01/2024 Overview (08/01/2024): Has had unintentional weight loss Seeing GI at [facility] Eczema 05/12/2024 Atypical squamous cell kumar es of undetermined significance (ASCUS) on cervical cytology with 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 virus (HPV) 07/15/2021 Overview (05/12/2024): 05/06/2021 ASCUS HR HPV Neg 16/18/45 07/11/2021 Colpo TRISTA 1 Encounters Date Type Department Care Team Description 08/29/2024 Telephone Adult Medicine [address] [phone] Paz Danielle PA Med Refill 08/21/2024 Telephone Obstetrics and Gynecology - [address] [phone] Agustina Florez CNM Med Refill 08/08/2024 Telephone Obstetrics and Gynecology - [address] [phone] Agustina Florez CNM Med Refill 08/01/2024 1:30 PM EST Office Visit Obstetrics and Gynecology [address] [phone] Agustina Florez CNM Encounter for annual routine gynecological examination (Primary Dx); Atypical squamous cell changes of undetermined significance (ASCUS) on cervical cytology with 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 virus (HPV); Screening for cervical cancer; Nausea and vomiting in adult 07/20/2024 8:35 AM EST - 07/20/2024 11:59 PM EST Hospital Encounter Radiology Department - [address] [phone] Epigastric pain; Nausea and vomiting, unspecified vomiting type Discharge Disposition: Home or Self Care 07/20/2024 Telephone Adult Medicine [address] [phone] Di Smith MD Weight Loss 07/04/2024 3:00 PM EST Office Visit General Surgery - [address] [phone] Basim Davis, DO Periumbilical abdominal pain (Primary Dx) from Last 3 Months Immunizations Name Administration Dates Next Due DTP 04/17/1996,02/24/1996 DTaP (Infanrix) 6wks to less than 7yo 02/25/2000 ,07/02/1997,06/19/1996 ODkD-YUO-WVT (Pentacel) 2mo to less than 5yo 04/02/1997,06/19/1996,04/17/1996,02/23 HPV, Quadrivalent 03/28/2010,04/23/2008,08/05/19 07 Hepatitis A Pediatric (Havri x; Vaqta) 12mo to less than 19yo 11/27/2014 Hepatitis B Pediatric (Enger ix B; Recombivax HB) to less than 20 yo 09/14/1996,01/17/1996,1995 Hib (HbOC) 04/02/1997, 6,04/17/1996,02/23 IPV Inactivated polio (Ipol) 6wks and older 02/25/2000,07/02/1997 Influenza Quadravalent, MDCK , 0.5ml, preservative free (Flucelvax) 6mo and older 09/01/2018 Influenza Quadrivalent, with preservative (Fluzone; Afluria) 6mo and older 04/24/2014 Influenza Split 03/28/2010, 8,05/28/2007,05/07 MMR, measles mumps and rubel la Live (Priorix; M-M-R II) 12mo and older 01/31/2001,04/02/1997 Meningococcal MCV4P 11/27/2014,03/28/2010 OPV 06/19/1996, 6,03/26/1996,02/23 [facility] SARS-CoV-2 COVID-19, mRNA, LNP-S, preservative free 12/20/2020,11/28/2020 Tb Skin Test 03/16/2022 Tdap Tetanus diptheria acell ular pertussis (Boostrix; Adacel) 7yo and older 10/05/2018,04/23/2008 Varicella live (Varivax) 12m o and older 03/24/2022,03/28/2010,01/04/1997 Surgical History Surgery Date Site/Laterality Comments WISDOM TOOTH EXTRACTION PROCEDURE: HISTORICAL WISDOM TEETH EXTRACTION BREAST BIOPSY 04/28/2024 - 05/27/2024 Left Medical History Medical History Date Comments Childhood asthma 04/2003 DX:Childhood as thma; COMMENT: RAD Eczema DX:Eczema Family History Medical History Relation Name Comments Asthma Brother 1 No Known Problems Brother 2 No Known Problems Brother 3 Hypertension Father kidney stones No Known Problems Maternal Grandfather Diabetes Maternal Grandmother Glaucoma Maternal Grandmother Hyperlipidemia Maternal Grandmother Stroke Maternal Grandmother Arthritis Mother Other: old age Paternal Grandfather No Known Problems Paternal Grandmother Breast cancer Neg Hx Ovarian cancer Neg Hx Uterine cancer Neg Hx Relation Name Status Comments Brother 1 Alive Brother 2 Alive Brother 3 Alive Father Alive Maternal Grandfather Maternal Grandmother Mother Alive Paternal Grandfather Paternal Grandmother Alive Social History Tobacco Use Types Packs/Day Years Used Date Smoking Tobacco: Never Smokeless Tobacco: Never Tobacco Cessation:Counseling Given: Not Answered Alcohol Use Standard Drinks/Week Comments Not Currently 0 (1 standard drink = 0.6 oz pur e alcohol) Housing Instability Answer Date Recorde d Are you worried that in the next 2 months you may not have stable housing? No 07/31/2024 Food Access & Nutrition Answer Date Rec orded Do you have access to a vari ety of food including fruits and vegetables? Yes 07/31/2024 Access to Healthcare Answer Date Record ed Within the last 3 months, jose kam many times did you visit the emergency department for your medical care? 4 07/31/2024 Health Literacy Answer Date Recorded How often do you need to hav e someone help you when you read instructions, pamphlets, or other written material from your doctor or pharmacy? Never 07/31/2024 Caregiver: How often do you need to have someone help you when you read instructions, pamphlets, or other written material from your doctor or pharmacy? Not on file 07/31/2024 Financial Risk Answer Date Recorded How hard is it for you to pa y for the very basics like food, housing, medical care, and air conditioning / heating? Patient declined 07/31/2024 Transportation Answer Date Recorded Has the lack of transportati on kept you from meetings, work, or from getting things needed for daily living? No Has the lack of transportati on kept you from medical appointments or from getting medications? No 07/31/2024 Social Isolation Answer Date Recorded How often do you feel lonely or isolated from th ose around you? Rarely 07/31/2024 Food Risk Answer Date Recorded Within the past 12 months we worried whether our food would run out before we got money to buy more. Never true 07/31/2024 Within the past 12 months th e food we bought just didn't last and we didn't have money to get more. Never true 07/31/2024 Dependent Care Answer Date Recorded Do you need help finding or paying for care for your loved ones. For example, director child development center or elderly care for an older adult? No 07/31/2024 Education Answer Date Recorded Do you think completing more education or training, like finishing a GED, going to college, or learning a trade, would be helpful for you? Patient declined 07/31/2024 Employment and Income Answer Date Recor ded During the last four weeks, have you been actively looking for work? No 07/31/2024 Living Situation Answer Date Recorded What is your living situation? 0 07/31/2024 Comments No Sex and Gender Information Value Date Recorded Sex Assigned at Female 05/18/2024 2:48 PM EST Legal Sex Female 2:59 AM EST Gender Identity Female 05/18/2024 2:48 PM EST Sexual Orientation Lesbian or Becerra 05/18/2024 2: 48 PM EST Obstetrics History Para Term AB IAB SAB Ectopic Multiple Livin g Live Births 0 0 0 0 0 0 0 0 0 0 0 Last Filed Vital Signs Vital Sign Reading Time Taken Comments Blood Pressure 110/68 08/01/2024 1:42 PM EST Pulse 84 08/01/2024 1:42 PM EST Temperature 36.6 ??C (97.8 ??F) 06/13/2024 2:45 PM ES T Respiratory Rate 12 08/01/2024 1:42 PM EST Oxygen Saturation 100% 06/13/2024 2:45 PM EST Inhaled Oxygen Concentration - - Weight 54.9 kg (121 lb) 08/01/2024 1:42 PM EST Height 167.6 cm (5' 6 ) 08/01/2024 1:42 PM EST Body Mass Index 19.53 08/01/2024 1:42 PM EST Plan of Treatment Upcoming Encounters Date Type Department Care Team (Late st Contact Info) Description 11/09/2024 8:30 AM EDT Office Visit Obstetrics and Gynecology - [address] [phone] Agustina Florez CNM [address] [place] [address] 04/06/2025 4:00 PM EDT Office Visit Adult Medicine [facility] [address] [place] [address] Di Smith MD [address] [place] [address] Health Maintenance Due Date Last Done Comments Hepatitis A Vaccines (2 of 2 - 2-dose series) 05/29/2015 11/27/2014 HIV Screening 06/06/2022 Hepatitis C Screening 06/06/2022 COVID-19 Vaccine ( season) 2024 12/20/2020, 11/28/2020 Influenza Vaccine (#1) 2024 9, 04/24/2014, 03/28/2010, Additional history exists Depression Screening 07/31/2025 07/31/2024 Social Influencers of Health Screening 07/31/2025 07/31/2024 Cervical Cancer Screening: Pap Smear 08/01/2025 08/01/2024, 08/01/2024, 05/16/2021, Additional history exists DTaP,Tdap,and Td Vaccines (8 - Td or Tdap) 10/05/2028 10/05/2018, 04/23/2008, 02/25/2000, Additional history exists Hepatitis B Vaccines Completed 09/14/1996, 01/17/1996, 1995 HIB Vaccines Completed 04/02/1997, 11/1996, 06/19/1996, Additional history exists IPV Vaccines Completed 02/25/2000, 10/1997, 04/02/1997, Additional history exists MMR Vaccines Completed 01/31/2001, 04/02/1997 HPV Vaccines Completed 03/28/2010, 03/29, 08/05/2006 Meningococcal ACWY Vaccine Completed 11/27/2014, Varicella Vaccines Completed 03/24/2022, 1 , 01/04/1997 Meningococcal B Vacine Aged Out No lo nger eligible based on patient's age to complete this topic Pneumococcal Vaccine: Pediatrics (0 to 5 Years) and At-Risk Patients (6 to 64 Years) Aged Out No longer eligible based on patient's age to complete this topic RSV Immunization Patients Under 20 months Aged Out No longer eligible based on patient's age to complete this topic Medical Devices Implanted Type Area Switchbox Assembler Device Identifier Shelf Expiration Date Model / Serial / Lot Marker Tissue Breast Dual Trig 17x10 Ultrasound Enhanced - [id number] - [id number] Implanted:Qty: 1 on 05/03/2024 by Erick Sage MD at [facility] Implants Left: Breast CR [employer]ARD [employer]HER[employer] 11/22/2026 [id number] / [id number] / Procedures Procedure Name Priority Date/Time Associated Diagnosis Comments CHLAMYDIA TRACHOMATIS AND NEISSERIA GONORRHOEAE BY TMA, THINPREP Routine 08/01/2024 1:54 PM EST Encounter for annual routine gynecological examination Atypical squamous cell changes of undetermined significance (ASCUS) on cervical cytology with 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 virus (HPV) Screening for cervical cancer PAP SMEAR Routine 08/01/2024 1:54 PM EST Encounter for annual routine gynecological examination Atypical squamous cell changes of undetermined significance (ASCUS) on cervical cytology with 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 virus (HPV) Screening for cervical cancer HPV WITH REFLEX GENOTYPE Routine 08/01/2024 1:54 PM EST Encounter for annual routine gynecological examination Atypical squamous cell changes of undetermined significance (ASCUS) on cervical cytology with 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 virus (HPV) Screening for cervical cancer TRICHOMONAS VAGINALIS PCR Routine 08/01/2024 1:54 PM EST Encounter for annual routine gynecological examination Atypical squamous cell changes of undetermined significance (ASCUS) on cervical cytology with 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 virus (HPV) Screening for cervical cancer US ABDOMEN LIMITED Routine 07/20/2024 9: 04 AM EST Epigastric pain Nausea and vomiting, unspecified vomiting type from Last 3 Months Results * Chlamydia trachomatis and neisseria gonorrhoeae by tma, thinprep (08/01/2024 1:54 PM EST) N. gonorrhoeae, RNA Probe Negative Negative LAB MICROBIOLOGY METHOD 08/03/2024 1:40 PM EST [facility] Chlamydia, RNA Probe Negative Negative LAB MICROBIOLOGY METHOD 08/03/2024 1:40 PM EST [facility] Brushing/Spatula Cervix uteri structure / Unknown 08/01/2024 1:54 PM EST 08/02/2024 6:16 AM EST us Agustina Florez CNM LAB CYTOLOGY ORDERABLES Final R esult Performing Organization Address [facility]/State/ZIP Co de Phone Number [facility] [address] [place] [address], [place] [phone] * HPV with reflex genotype (08/01/2024 1:54 PM EST) HPV Negative Negative LAB MICROBIOLOGY METHOD 08/03/2024 2:40 PM EST [facility] Brushing/Spatula Cervix uteri structure / Unknown 08/01/2024 1:54 PM EST 08/02/2024 6:16 AM EST us Agustina Florez CNM LAB MOLECULAR DIAGNOSTICS ORDER MARIA ELENA Final Result Performing Organization Address [facility]/ZIP Co de Phone Number [facility] [address] [place] [address], [place] [phone] * Trichomonas vaginalis molecular study (08/01/2024 1:54 PM EST) Trichomonas vaginalis Negative Negative LAB MICROBIOLOGY METHOD 08/03/2024 1:50 PM EST [facility] Brushing/Spatula Cervix uteri structure / Unknown 08/01/2024 1:54 PM EST 08/02/2024 6:16 AM EST us Agustina Florez CNM LAB BLOOD ORDERABLES Final Resu lt [facility] [address] [place] [address], * Pap smear (08/01/2024 1:54 PM EST) Interpretation Negative for intraepithelial lesion or malignancy 08/03/2024 2:11 PM EST [facility] General Categorization Negative 08/03/2024 2:11 PM EST [facility] Other Findings Shift in shannan suggestive of bacterial vaginosis Keratotic cellular changes, hyperkeratosis 08/03/2024 2:11 PM EST [facility] LMP 07/12/2024 08/03/2024 2:11 PM EST [facility] Specimen Adequacy Satisfactory for evaluation, endocervical/nguyen sformation zone component present 08/03/2024 2:11 PM EST [facility] Pap Methodology Liquid Based Pap Test 08/03/2024 2:11 PM EST [facility] Disclaimer The Pap test is a screening test which carries an inherent false negative rate. These test results should be correlated with the patient's clinical findings and history. This Pap test was processed using an automated screening system. Technical cytopathology services provided by [facility], at [address] [place] [id number] (CLIA # [id number]/Dalia Saldaña MD, Apparatus Repair Mechanic.) 08/03/2024 2:11 PM [facility] Console Pap Interpretation Reported 08/03/2024 2:11 PM [facility] Brushing/Spatula Cervix uteri structure / Unknown 08/01/2024 1:54 PM EST 08/01/2024 1:54 PM EST Agustina Florez CNM LAB CYTOLOGY ORDERABLES Final R esult [facility] [address] [place] [address], * US Abdomen Limited (07/20/2024 9:04 AM EST) Anatomical Region Laterality Modality Body Ultrasound 07/20/2024 9:08 AM EST Impressions 07/20/2024 9:09 AM EST Normal right upper quadrant ultrasound. -------- FINAL REPORT -------- Dictated By: Radha Hughes Dictated Date: 07/20/2024 09:08 ET Assigned Physician: Radha Hughes Reviewed and Electronically Signed By: Radha Hughes Signed Date: 07/20/2024 09:09 ET Workstation ID: [id number] Transcribed By: Self Edit Transcribed Date: 07/20/2024 09:08 ET Narrative 07/20/2024 9:09 AM EST ABDOMINAL ULTRASOUND-LIMITED History: ??Epigastric pain. Comparison: None. FINDINGS: There is no evidence of cholelithiasis. The common bile duct is not dilated, measuring 4 mm. ??The gallbladder wall is not thickened. No pericholecystic fluid is seen. No ascites are seen. The visualized pancreas is normal in size and demonstrates normal echotexture. The liver measures 12.5 cm length and demonstrates normal echotexture. No focal lesions are seen in the liver and there is no evidence of intrahepatic ductal dilation. Normal hepatopedal flow is seen in the main portal vein. No evidence of hydronephrosis, mass, or calculus was seen in the right kidney. ??The right kidney measures 10.6 cm in greatest length. Procedure Note Radha Hughes MD - 07/20/2024 ABDOMINAL ULTRASOUND-LIMITED History: Epigastric pain. Comparison: None. FINDINGS: There is no evidence of cholelithiasis. The common bile duct isnot dilated, measuring 4 mm. The gallbladder wall is not thickened. Nopericholecystic fluid is seen. No ascites are seen. The visualized pancreas is normal in size and demonstrates normalechotexture. The liver measures 12.5 cm length and demonstrates normal echotexture. Nofocal lesions are seen in the liver and there is no evidence ofintrahepatic ductal dilation. Normal hepatopedal flow is seen in the mainportal vein. No evidence of hydronephrosis, mass, or calculus was seen in the rightkidney. The right kidney measures 10.6 cm in greatest length. IMPRESSION: Normal right upper quadrant ultrasound. 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
--- OUTSIDE RECORDS SUMMARY | 2024-09-25 13:17 | XMS_ITS | Encounter Summary ---
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 Name Role Phone Agustina Triana YO Primary Care Provider [phone] Reason for Visit * Reason Onset Date Comments new patient visit 05/29/2024 Encounter Details Date Type Department Care Team (Late Contact Info) Description 05/29/2024 Telephone [facility] MEDICINE [address] [place] [address] Griffin Montoya MD [address] [place] [phone] new patient visit Social History Tobacco Use Types Packs/Day Years Used Date Smoking Tobacco: Never Smokeless Tobacco: Never Comments Unknown Sex and Gender Information Value Date Recorded Sex Assigned at Female 11/03/2023 10:19 AM EDT Legal Sex Female 10:10 AM EDT Gender Identity Female 11/03/2023 10:19 AM EDT Sexual Orientation Choose not to disclose 2023 10:21 AM EDT documented as of this encounter Miscellaneous Notes * Telephone Encounter - Derrek Solomon - 05/29/2024 2:07 PM EST TC placed to patient for scheduling of new patient visit. Agreed to 06/[address] Bland NO Medical Conditions Last seen for a PE at [facility] 2 years ago . Apptmnt reminder and release form sent via mail . documented in this encounter Plan of Treatment Upcoming Encounters Date Type Department Care Team (Late Contact Info) Description 11/28/2024 3:00 PM EDT Office Visit [facility] ADULT DENTAL [address] [place] [address] Marbella Gonzalez 12/22/2024 2:45 PM EDT Office Visit [facility] MED & PEDS [address] [place] [address] Agustina Triana FNP [address] [place] [address] documented as of this encounter Visit Diagnoses Not on filedocumented in this encounter Care Teams Radio Electronics Technician Relationship Specialty Start Date End Date Agustina Triana FNP [address] [place] [address] PCP - General Family Medicine 09/22/24 documented as of this encounter
[2024-09-25 13:34] LABS: Alanine Aminotransferase 23 U/L (0-31); Albumin Level 4.1 g/dL (3.5-5.0); Alkaline Phosphatase 56 U/L (39-117); Anion Gap 9 (12-20); Aspartate Amino Transferase 23 U/L (5-31); Bilirubin Total 0.6 mg/dL (0.0-1.0); Blood Urea Nitrogen 11 mg/dL (9-16); C Reactive Protein 0.18 mg/dL (< or = 0.50); Calcium 8.8 mg/dL (8.4-10.2); Carbon Dioxide 28 mmol/L (22-29); Chloride 106 mmol/L (96-108); Cholesterol 176 mg/dL (<200); Estimated Glomerular Filt Rate > 60; Glucose Random 84 mg/dL (60-115); HDL Cholesterol 83 mg/dL (>40); LDL Cholesterol Calculated 85 mg/dL (<100); Potassium 3.8 mmol/L (3.3-5.1); Sodium 139 mmol/L (135-145); TSH reflex Free T4 0.61 uIU/mL (0.32-4.0); Total Protein 6.5 g/dL (6.5-8.0); Triglycerides 42 mg/dL (<150); Vitamin D 25-OH Total 26.8 ng/mL (>30)
[2024-09-25 14:08] LABS: CT PCR NOT DETECTED (Not Detect.); NG PCR NOT DETECTED (Not Detect.)
[2024-09-26 08:06] LABS: HIV AB/AG Nonreactive (Nonreactive); HIV Num 1 0.06 S/CO (0.00-0.99)
[2024-09-26 22:57] LABS: Immunoglobulin A 224 mg/dL (47-310); Transglutaminase IgA <1.0 U/mL
[2024-09-27 06:33] LABS: RPR Rapid Plasma Reagin NON-REACTIVE (NON-REACTIVE)
[2024-09-27 16:59] LABS: HCV Log PCR <1.18 NOT DETECTED Log IU/mL (NOT DETECTED); HepC Viral Load <15 NOT DETECTED IU/mL (NOT DETECTED)
== END 2024-09-25 11:35 | disposition home or self-care (01) ==
LOC: HO.HHCL 11:34
PROVIDERS: Visit Provider Registered Nurse
DX: Z00.00 Encounter for general adult medical examination without abnormal findings (principal)
CPT/HCPCS: 80053; 80061; 82306; 82784; 83036; 84443; 85025; 85652; 86140; 86364; 86592; 87389; 87491; 87522; 87591

== ENCOUNTER 2025-04-13 13:38 | Outpatient (REF) | payer OTHER, SELFPAY ==
--- NOTE | ~2025-04-13 | XR_ITS ---
EXAMINATION: XR CHEST 2 VIEWS HISTORY: cough COMPARISON: Comparison is made with the prior examination dated 08/26/2023. FINDINGS: PA and lateral views of the chest are submitted. The lungs are expanded and clear. There is no pleural effusion, pneumothorax, or pulmonary vascular congestion. The heart is normal in size. The bones are intact. XR/XR chest 2V IMPRESSION: No acute cardiopulmonary abnormality. Electronically signed by: Cedric Santacruz MD 04/13/2025 02:00 PM EDT
--- OUTSIDE RECORDS SUMMARY | 2025-04-13 13:00 | XMS_ITS | Encounter Summary ---
Author Organization [employer] Address [address] [place] [address] Care Team Providers Care Hoisting Pile Driving Engineer Name Role Phone Agustina Triana YO Primary Care Provider [phone] Reason for Visit * Reason Comments Fever Encounter Details Date Type Department Care Team ([facility] Contact Info) Description 04/13/2025 1:00 PM EDT Office Visit [facility] [address] [place], [place] [phone] Acute cough (Primary Dx); Post-nasal drip Social History Tobacco Use Types Packs/Day Years [...] Female 11/03/2023 10:19 AM EDT Sexual Orientation Lesbian 12/06/2024 7: 31 AM EDT documented as of this encounter Last Filed Vital Signs Vital Sign Reading Time Taken Comments Blood Pressure 116/83 04/13/2025 1:14 PM EDT Pulse 110 04/13/2025 1:14 PM EDT Temperature 37.7 C (99.9 F) 04/13/2025 1:14 PM EDT Respiratory Rate 25 04/13/2025 1:14 PM EDT Oxygen Saturation 99% 04/13/2025 1:14 PM EDT Inhaled Oxygen Concentration - - Weight 57.7 kg (127 lb 3.2 oz) 04/13/2025 1:14 P M EDT Height 160 cm (5' 3 ) 04/13/2025 1:14 PM EDT Body Mass Index 22.53 04/13/2025 1:14 PM EDT documented in this encounter Plan of Treatment Upcoming Encounters Date Type Department Care Team (Late st Contact Info) Description 05/09/2025 11:30 AM EST Office Visit [facility] [address] [place] [address] Aldo, Penelope, OD [address] [place] [address] documented as of this encounter Procedures Procedure Name Priority Date/Time Associated Diagnosis Comments XR CHEST 2 VIEWS Routine 04/13/2025 1:55 PM EDT Acute cough POCT INFLUENZA B (ID NOW RAPID MOLECULAR) Routine 04/13/2025 1:30 PM EDT Acute cough POCT INFLUENZA A (ID NOW RAPID MOLECULAR) Routine 04/13/2025 1:29 PM EDT Acute cough POCT RAPID COVID ANTIGEN Routine 04/13/2025 1:26 PM EDT Acute cough documented in this encounter Results * XR Chest 2 Views (04/13/2025 1:55 PM EDT) Anatomical Region Laterality Modality Chest Radiographic Kacy ging 04/13/2025 1:55 PM EDT Narrative 04/13/2025 2:03 PM EDT [address] [address] XRay Report Signed Patient: Sapna Bazzi MR#: [id number] 8 : 1995 Acct:[id number] Age/Sex: 29 / F ADM Date: 04/13/25 Loc: [facility] Attending Dr: Mami Reina Ordering Physician: Mami Reina Date of Service: 04/13/25 Procedure(s): XR chest 2V Accession Number(s): [id number] cc: Mami Reina Reason for Exam: cough EXAMINATION: XR CHEST 2 VIEWS HISTORY: cough COMPARISON: Comparison is made with the prior examination dated 08/26/2023. FINDINGS: PA and lateral views of the chest are submitted. The lungs are expanded and clear. There is no pleural effusion, pneumothorax, or pulmonary vascular congestion. The heart is normal in size. The bones are intact. XR/XR chest 2V IMPRESSION: No acute cardiopulmonary abnormality. Electronically signed by: Cedric Santacruz MD 04/13/2025 02:00 PM EDT Dictated By: Cedric Santacruz MD Signed By: <Electronically signed by Cedric Santacruz MD in OV> 04/13/25 1400 DD/ 1355 TD/TT: 04/13/25 1357 Maintenance Planner: Procedure Note Donotuseinterpreter, Image - 04/13/[address] [address] XRay Report Signed Patient: Sapna BazziMR#: [id number] 8 : 1995Acct:[id number] Age/Sex: 29 / FADM Date: 04/13/25 Loc: [facility] Attending Dr: Mami Reina Ordering Physician: Mami Reina Date of Service: 04/13/25 Procedure(s): XR chest 2V Accession Number(s): [id number] cc: Mami Reina Reason for Exam: cough EXAMINATION: XR CHEST 2 VIEWS HISTORY: cough COMPARISON: Comparison is made with the prior examination dated 08/26/2023. FINDINGS: PA and lateral views of the chest are submitted. The lungs are expanded and clear. There is no pleural effusion, pneumothorax, or pulmonary vascular congestion. The heart is normal in size. The bones are intact. XR/XR chest 2V IMPRESSION: No acute cardiopulmonary abnormality. Electronically signed by: Cedric Santacruz MD 04/13/2025 02:00 PM EDT Dictated By: Cedric Santacruz MD Signed By: <Electronically signed by Cedric Santacruz MD in OV> 04/13/25 1400 DD/ 1355 TD/TT: 04/13/25 1357 Maintenance Planner: us Mami Reina DIRECT SUPPORT STAFF IMG XR PROCEDURES Final Result * POCT Rapid Influenza B GREER ID NOW (04/13/2025 1:30 PM EDT) Influenza B Negative Negative, Indeterminate [facility] QC Media Lot # [id number] [facility] Lot# Expiration Date [facility] Swab 04/13/2025 1:30 PM EDT us Mami Reina DIRECT SUPPORT STAFF POINT OF CARE TEST ENTER/EDIT O RDERABLES Final Result [facility] [address] [place] [address] [phone] * POCT Rapid Influenza A GREER ID NOW (04/13/2025 1:29 PM EDT) Influenza A Negative Negative, Indeterminate [facility] QC Media Lot # [id number] [facility] Lot# Expiration Date [facility] Swab 04/13/2025 1:29 PM EDT us Mami Appram DIRECT SUPPORT STAFF POINT OF CARE TEST ENTER/EDIT O RDERABLES Final Result [facility] [address] [place] [address] [phone] * POCT Rapid Covid-19 BinaxNOW (04/13/2025 1:26 PM EDT) Rapid COVID Ag Negative QC Media Lot # [id number] Lot# Expiration Date [id number] Swab 04/13/2025 1:26 PM EDT us Mami Appram DIRECT SUPPORT STAFF POINT OF CARE TEST ENTER/EDIT O RDERABLES Final Result documented in this encounter Visit Diagnoses Diagnosis Acute cough- Primary Post-nasal drip Postnasal drip documented in this encounter Additional Health Concerns Assessment Noted Time PHQ-9 Depression Total Score: 8 09/23/19 25 2:22 PM EDT documented as of this encounter Care Teams Hoisting Pile Driving Engineer Relationship Specialty Start Date End Date Agustina Triana FNP [address] [place] [address] PCP - General Family Medicine 09/22/24 documented as of this encounter
--- OUTSIDE RECORDS SUMMARY | 2025-04-13 16:09 | XMS_ITS | Clinical Summary ---
Author Organization [employer] Address [address] [place] [address] Care Team Providers Care Meat Team Member Name Role Phone Agustina Triana YO Primary Care Provider [phone] Allergies No known active allergies Medications ondansetron ODT (Zofran-ODT) 4 MG disintegrating tabletIndications: Chronic nausea Take 1 tablet (4 mg) by mouth every 8 (eight) hours if needed for nausea or vomiting. 30 tablet 3 12/23/19 25 026 Active dicyclomine (Bentyl) 10 MG capsule Take 1 capsule (10 mg) by mouth if needed in the morning, at noon, in the evening, and at bedtime (abdominal pain and bloating). 90 capsule 2 12/23/19 25 Active triamcinolone (Kenalog) 0.1 % cream Mix 80g tube of Triamcinolone 0.1% cream with 16oz jar of CeraVe cream. Apply 1-2 times per day after shower or bath from the neck down (not on face) 80 g 2 12/23/19 25 Active fluticasone (Flonase) 50 MCG/ACT nasal sprayIndications:A cute cough Administer 1 spray into each nostril 2 times daily. Shake gently. Before first use, prime pump. After use, clean tip and replace cap. 16 g 1 04/13/20 25 025 Active albuterol (Ventolin HFA) 108 (90 Base) MCG/ACT inhalerIndications :Acute cough Inhale 2 puffs every 6 (six) hours if needed for wheezing or shortness of breath. 18 g 1 04/13/20 25 025 Active Active Problems Problem Noted Date Diagnosed Date Chronic diarrhea 09/24/2024 Assessment & Plan (09/24/2024 9:49 AM EDT): See R11.0 Healthcare maintenance 09/22/2024 Overview (12/26/2024): Pap: NILM, HPV neg on 08/01/24. 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 Next due: Jul 2027 Last PE: 12/22/24 Chronic nausea 08/01/2024 Assessment & Plan (12/26/2024 8:36 PM EDT): Abrupt symptom onset July 2023 (previously healthy). gradual improvement throughout the year Differential includes IBS, IBD, intussusception, SIBO, disorder of gut-brain interaction, H pylori, endometriosis, other Colonoscopy October 2023 within normal limits, requesting labs/stool sample results from [facility] (+) unintentional weight loss ~35lbs over past year Referral to [facility] for further eval, consideration of endoscopy Encouraged probiotic use and monitoring for potential triggers Continues with zofran PRN and bentyl Follow up precautions Assessment & Plan (09/24/2024 9:54 AM EDT): Abrupt symptom onset July 2023 (previously healthy). gradual improvement throughout the year Differential includes IBS, IBD, intussusception, SIBO, disorder of gut-brain interaction, H pylori, endometriosis, other Colonoscopy October 2023 within normal limits, requesting labs/stool sample results from [facility] (+) unintentional weight loss ~35lbs over past year Referral to [facility] for further eval, consideration of endoscopy Encouraged probiotic use and monitoring for potential triggers Follow up precautions Eczema 05/12/2024 Assessment & Plan (12/26/2024 8:36 PM EDT): - Start CeraVe/triamcinolone compound cream for daily preventative use - Follow up PRN Assessment & Plan (09/24/2024 9:37 AM EDT): [...] Encounters Date Type Department Care Team Description 04/13/2025 1:00 PM EDT Office Visit [facility] [address] [place] [id number] Acute cough (Primary Dx); Post-nasal drip 04/13/2025 Travel 04/13/2025 Telephone [facility] [address] [place] [address] Agustina Triana FNP Nurse Triage 03/07/2025 Telephone [facility] [address] [place] [address] Agustina Triana FNP 01/30/2025 Telephone [facility] [address] [place], [place] [phone] Agustina Triana FNP Neurology Referral from Last 3 Months Immunizations Immunization Administration Dates Next Due DTP [...] Comments Asthma Brother Rafael Bazzi Hypertension Father Shukri Bazzi Kidney disease Father Shukri Bazzi Diabetes Maternal Grandmother Viki Reg Hypertension Maternal Grandmother Viki Reg Stroke Maternal Grandmother Viki Reg Relation Name Status Comments Brother Rafael Bazzi Father Shukri Bazzi Maternal Grandmother Viki Liaodal Social History Tobacco Use Types Packs/Day Years [...] Orientation Lesbian 12/06/2024 7: 31 AM EDT Last Filed Vital Signs Vital [...] Mass Index 22.53 04/13/2025 1:14 PM EDT Plan of Treatment Upcoming Encounters Date Type Department Care Team (Late st Contact Info) Description 05/09/2025 11:30 AM EST Office Visit [facility] [address] [place] [address] Penelope Carlson, OD [address] [place] [address] Health Maintenance Due Date Last Done Comments Family Planning (PISQ) 12/15/2010 Hepatitis A Vaccines (2 of 2 - 2-dose series) 05/29/2015 11/27/2014 Dental Oral Exam 10/18/2024 04/18/2024 Dental Prophylaxis 10/18/2024 04/18/2024 COVID-19 Vaccine ( season) 2025 12/20/2020, 11/28/2020 Influenza Vaccine (#1) 2025 9, 04/24/2014, 04/24/2014, Additional history exists Dental X-Ray: Bitewings 04/19/2025 04/18/2024 Depression Screening 09/22/2025 09/22/2024, 09/23/19 Disability Screening 09/22/2025 09/22/2024 SDOH Screening 09/22/2025 09/22/2024 Tobacco Screening 12/18/2025 12/18/2024 Alcohol/Substance Use Screening 12/22/2025 12/22/2024 Dental X-Ray: Full Mouth 04/19/2027 04/18/2024 Pap Smear 08/01/2027 08/01/2024, 05/06/2021 DTaP/Tdap/Td Vaccines (8 - Td or Tdap) [...] 03/29, 08/05/2006 Meningococcal Vaccine Completed 11/27/2014, 010 Colposcopy Discontinued 07/11/2021 HIV Screening Completed 09/25/2024 Hepatitis C Screening Completed 09/25/2024 Meningococcal B Vaccine Aged Out No l onger eligible based on patient's age to complete this topic Pneumococcal Vaccine: Pediatrics (0 to 5 Years) and At-Risk Patients (6 to 49) Years Aged Out No longer eligible based on [...] Routine 04/13/2025 1:26 PM EDT Acute cough HEPATITIS C VIRAL RNA, QUANTITATIVE, REAL-TIME PCR Routine 09/25/2024 11:37 AM EDT Healthcare maintenance HIV 1/2 ANTIGEN/ANTIBODY, FOURTH GENERATION W/RFL Routine 09/25/2024 11:37 AM EDT Healthcare maintenance HM PAP/HPV Routine 08/01/2024 3:27 PM EST PROPHYLAXIS - ADULT Routine 04/18/2024 3 :00 PM EDT Dental calculus Dental plaque INTRAORAL - COMPLETE SERIES OF RADIOGRAPHIC IMAGES Routine 04/18/2024 3:00 PM EDT PERIODIC ORAL EVALUATION - ESTABLISHED PATIENT Routine 04/18/2024 3:00 PM EDT HM COLPOSCOPY Routine 07/11/2021 12:00 AM EST from Last 3 Months or Most Recently Relevant to Health Maintenance Results * XR Chest 2 Views (04/13/2025 1:55 PM EDT) Anatomical Region Laterality Modality Chest Radiographic Kacy ging 04/13/2025 1:55 PM EDT Narrative 04/13/2025 2:03 PM EDT [address] [address] XRay Report Signed Patient: Sapna Bazzi MR#: [id number] 8 : 1995 Acct:[id number] Age/Sex: 29 / F ADM Date: 04/13/25 Loc: [facility] Attending Dr: Mami Reina Ordering Physician: Mami Reina Date of Service: 04/13/25 Procedure(s): XR chest 2V Accession Number(s): [id number] cc: Mami Reina Reason for Exam: cough [...] Cedric Santacruz MD 04/13/2025 02:00 PM EDT RP Dictated By: Cedric Santacruz MD Signed By: <Electronically signed by Cedric Santacruz MD in OV> 04/13/25 1400 DD/ 1355 TD/TT: 04/13/25 1357 Automated Cutting Machine Operator: Procedure Note Donotuseinterpreter, Image - 04/13/[address] [address] XRay Report Signed Patient: Sapna BazziMR#: [id number] 8 : 1995Acct:[id number] Age/Sex: 29 / FADM Date: 04/13/25 Loc: [facility] Attending Dr: Mami Reina Ordering Physician: Mami Reina Date of Service: 04/13/25 Procedure(s): XR chest 2V Accession Number(s): [id number] cc: Mami Reina Reason for Exam: cough [...] Cedric Santacruz MD 04/13/2025 02:00 PM EDT RP Dictated By: Cedric Santacruz MD Signed By: <Electronically signed by Cedric Santacruz MD in OV> 04/13/25 1400 DD/ 1355 TD/TT: 04/13/25 1357 Automated Cutting Machine Operator: us Mami Appram DESK LIEUTENANT IMG XR PROCEDURES Final Result * POCT Rapid Influenza B GREER ID NOW (04/13/2025 1:30 PM EDT) Influenza B Negative Negative, Indeterminate [facility] QC Media Lot # [id number] [facility] Lot# Expiration Date [facility] Swab 04/13/2025 1:30 PM EDT [facility] DESK LIEUTENANT POINT OF CARE TEST ENTER/EDIT O RDERABLES Final Result Performing Organization Address City/[facility]/ZIP Co de Phone Number [facility] [address] [place] [phone] * POCT Rapid Influenza A GREER ID NOW (04/13/2025 1:29 PM EDT) Influenza A Negative Negative, Indeterminate [facility] QC Media Lot # [id number] [facility] Lot# Expiration Date [facility] Swab 04/13/2025 1:29 PM EDT [facility] DESK LIEUTENANT POINT OF CARE TEST ENTER/EDIT O RDERABLES Final Result Performing Organization Address City/[facility]/ZIP Co de Phone Number [facility] [address] [place] [phone] * POCT Rapid Covid-19 BinaxNOW (04/13/2025 1:26 PM EDT) [facility] Rapid COVID Ag Negative QC Media Lot # [id number] Lot# Expiration Date Swab 04/13/2025 1:26 PM EDT Mami Reina NP POINT OF CARE TEST ENTER/EDIT O RDERABLES Final Result * Hepatitis C Viral RNA, Quantitative, Real-Time PCR (09/25/2024 11:37 AM EDT) [facility] Hepatitis C Viral Load <15 NOT DETECTED NOT DETECTED IU/mL [facility] HCV Log PCR <1.18 NOT DETECTED NOT DETECTED Log IU/mL [facility] Comment:For additional infor ba, please refer [email or web address].Tunessence/faq/[email or web address](This link is being provided for informational/educational purposes only.)THIS TEST WAS PERFORMED AT:[facility] [place] [phone] DEL CASTILLO MD Blood 09/25/2024 11:3 7 AM EDT 09/25/2024 12:30 PM EDT Agustina Triana METAL BED ASSEMBLER LAB BLOOD ORDERABLES Final Res ult [facility] [address] [place] [address] [phone] * HIV-1/2 Antigen and Antibodies, Fourth Generation, with Reflexes (09/25/2024 11:37 AM EDT) [facility] HIV AB/AG Nonreactive Nonreactive [facility] Comment:HIV-1 p24 Ag and/or HIV-1/HIV-2 Ab not detected.A test result that is nonreactive does not exclude thepossibility of exposure to or infection with HIV-1 and/orHIV-2. Nonreactive results in this assay for individualswith prior exposure to HIV-1 and/or HIV-2 may be due toantigen and antibody levels that are below the limit ofdetection of this assay.The [employer] HIV Ag/Ab Combo assay result andsupplemental assay results should be interpreted inconjunction with the patient's clinical presentation,history and other laboratory results. If the results areinconsistent with clinical evidence, additional testing issuggested to confirm the result. Blood Venous blood specimen / Unknown 09/25/2024 11:37 AM EDT 09/25/2024 12:30 PM EDT Agustina Triana METAL BED ASSEMBLER LAB BLOOD ORDERABLES Final Res ult [facility] [address] [place] [phone] * PAP/HPV (08/01/2024 3:27 PM EST) Historical Provider HEALTH MAINTENANCE Final Result * (ABNORMAL) Colposcopy (07/11/2021 12:00 AM EST) Historical Provider HEALTH MAINTENANCE Final Result from Last 3 Months or Most Recently Relevant to Health Maintenance Insurance [facility] , [address] [place] [address] DENTAL - [facility] Care Teams Meat Team Member Relationship Specialty Start Date End Date Agustina Triana FNP [address] [place] [address] PCP - General Family Medicine 09/22/24
--- OUTSIDE RECORDS SUMMARY | 2025-04-13 16:09 | XMS_ITS | Encounter Summary ---
Author Organization [facility] Address [address] [place] [address] Phone Care Team Providers Care Line Construction Supervisor Name Role Phone Unavailable Primary Care Provider Unavailabl e Encounter Details Date Type Department Care Team (Late st Contact Info) Description 04/26/2014 Documentation [facility] Family Medicine [address] [place] [address] Family Medicine, Physician [facility] [address] Social History Tobacco Use Types [...]
--- OUTSIDE RECORDS SUMMARY | 2025-04-13 16:09 | XMS_ITS | Encounter Summary ---
Author Organization [facility] Address [address] [place] [address] Phone Care Team Providers Care Weight And Test Bar Clerk Name Role Phone Unavailable Primary Care Provider Unavailabl e Encounter Details Date Type Department Care Team (Late st Contact Info) Description 10/17/2012 Documentation [facility] Family Medicine [address] [place] [address] Family Medicine, Physician [facility] [place] [address] Social History Tobacco Use Types [...]
--- OUTSIDE RECORDS SUMMARY | 2025-04-13 16:09 | XMS_ITS | Encounter Summary ---
Author Organization [facility] Address [address] [place] [address] Phone Care Team Providers Care Corporate Traffic Manager Name Role Phone Unavailable Primary Care Provider Unavailabl e Encounter Details Date Type Department Care Team (Late st Contact Info) Description 02/11/2017 Conversion Encounter [facility] - [address] [address] Social History Tobacco Use Types Packs/Day Years [...]
--- OUTSIDE RECORDS SUMMARY | 2025-04-13 16:09 | XMS_ITS | Encounter Summary ---
Author Organization [employer] Address [address] [place] [address] Care Team Providers Care Electroplater Helper Name Role Phone Agustina Triana VP [employer] Primary Care Provider [phone] Encounter Details Date Type Department Care Team ([facility] st Contact Info) Description 09/26/2024 Orders Only [facility] [address] [place] [address] Provider, MD Corey Social History Tobacco Use Types Packs/Day Years [...] your housing situation today? I have beth sing 09/15/[address] you li [...] t he electric, gas, oil or water [employer] threatened to shut off services in your [...] Description 05/09/2025 11:30 AM EST Office Visit [facility] [address] [place] [address] Aldo Penelope, OD [address] [place] [address] documented as of this encounter Procedures Procedure Name Priority Date/Time Associated Diagnosis Comments HM PAP/HPV Routine 08/01/2024 3:27 PM EST documented in this encounter Results * HM PAP/HPV (08/01/2024 3:27 PM EST) Historical Provider HEALTH MAINTENANCE Final Result documented in this encounter Visit Diagnoses Not on filedocumented in this encounter Additional Health Concerns Assessment Noted Time PHQ-9 Depression Total Score: 8 09/23/19 25 2:22 PM EDT documented as of this encounter Care Teams Electroplater Helper Relationship Specialty Start Date End Date Agustina Triana FNP [address] [place] [address] PCP - General Family Medicine 09/22/24 documented as of this encounter
--- OUTSIDE RECORDS SUMMARY | 2025-04-13 16:09 | XMS_ITS | Encounter Summary ---
Author Organization [email or web address] Address [address] [place] [address] Care Team Providers Care Preservative Filler Machine Operator Name Role Phone Agustina Triana Primary Care Provider Reason for Visit * Reason Onset Date Comments Nurse Triage 04/13/2025 Encounter Details Date Type Department Care Team ([facility] st Contact Info) Description 04/13/2025 Telephone [facility] [address] [place] [address] Agustina Triana FNP [address] [place] [address] Nurse Triage Social History Tobacco Use Types Packs/Day Years [...] encounter Miscellaneous Notes * Telephone Encounter - Miriam Sigala RN - 04/13/2025 9:08 AM EDT TC to patient to triage. Nausea, fever of 101, diarrhea, cough, stuffy nose, tiredness since Wednesday. No appointments available today at [facility], sent patient to walk-in center to be evaluated. Educated on the need to stay hydrated and eat bland foods. Patient stated understanding and agreed with the plan. Protocol Used: Fever (Adult) Protocol-Based Disposition: See in Office or Video Visit Today or Tomorrow Video visit not offered Positive Triage Question: * Fever present > 3 days (72 hours) * All higher-acuity triage questions were negative Care Advice Discussed: * Reassurance and Education - Fever * General Care Advice for Fever * Fever Medicines * Contagiousness * Reasons To Call Back - Fever goes above 103 F (39.4 C) and you are unable to get it down - Fever lasts over 3 days (72 hours) - You become worse * Telephone Encounter - Karena Denis Ward - 04/13/2025 8:53 AM EDT Symptoms: Fever, Cough, Back Pain - Not From Injury Outcome: Schedule an urgent appointment (within 1 hour) or talk to a nurse or provider soon Reason: Wheezing (high-pitched whistling sound) The caller accepted this outcome. Contact pt at [phone] documented in this encounter Plan of Treatment Upcoming Encounters Date Type Department Care Team ([facility] st Contact Info) Description 05/09/2025 11:30 AM EST Office Visit [facility] [address] [place] [address] Penelope Carlson, OD [address] [place] [address] documented as of this encounter Visit Diagnoses Not on filedocumented in this encounter Additional Health Concerns Assessment Noted Time PHQ-9 Depression Total Score: 8 09/23/19 25 2:22 PM EDT documented as of this encounter Care Teams Preservative Filler Machine Operator Relationship Specialty Start Date End Date Agustina Triana FNP [address] [place] [address] PCP - General Family Medicine 09/22/24 documented as of this encounter
--- OUTSIDE RECORDS SUMMARY | 2025-04-13 16:09 | XMS_ITS | Encounter Summary ---
Author Organization [employer] Address [address] [place] [address] Care Team Providers Care Lawn Mower Mechanic Name Role Phone Agustina Triana Primary Care Provider [phone] Encounter Details Date Type Department Care Team ([facility] st Contact Info) Description 09/26/2024 Orders Only [facility] [address] [place], [place] [phone] Agustina Triana FNP [address] [place] [address] Social History Tobacco Use Types Packs/Day Years [...] Description 05/09/2025 11:30 AM EST Office Visit [facility] [address] [place] [address] Penelope Carlson, OD [address] [place] [address] documented as of this encounter Procedures Procedure Name Priority Date/Time Associated Diagnosis Comments HM COLPOSCOPY Routine 07/11/2021 12:00 AM EST PAP SMEAR Routine 05/06/2021 12:00 AM EST documented in this encounter Results * (ABNORMAL) HM Colposcopy (07/11/2021 12:00 AM EST) Historical Provider HEALTH MAINTENANCE Final Result * (ABNORMAL) Pap Smear (05/06/2021 12:00 AM EST) Swab us Historical Provider LAB CYTOLOGY ORDERABLES F inal Result [facility] [address] [place] [address] [phone] documented in this encounter Visit Diagnoses Not on filedocumented in this encounter Additional Health Concerns Assessment Noted Time PHQ-9 Depression Total Score: 8 09/23/19 25 2:22 PM EDT documented as of this encounter Care Teams Lawn Mower Mechanic Relationship Specialty Start Date End Date Agustina Triana FNP [address] [place] [address] PCP - General Family Medicine 09/22/24 documented as of this encounter
--- OUTSIDE RECORDS SUMMARY | 2025-04-13 16:09 | XMS_ITS | Encounter Summary ---
Author Organization [employer] Address [address] [place] [address] Care Team Providers Care Quantitative Software Engineer Name Role Phone Agustina Triana YO Primary Care Provider [phone] Encounter Details Date Type Department Care Team (Latest Contact Info) Description 04/13/2025 Travel Social History Tobacco Use Types Packs/Day [...] Description 05/09/2025 11:30 AM EST Office Visit [facility] [address] [place], [place] [phone] AldoPenelope fontaine, OD [address] [place] [address] documented as of this encounter Visit Diagnoses Not on filedocumented in this encounter Additional Health Concerns Assessment Noted Time PHQ-9 Depression Total Score: 8 09/23/19 25 2:22 PM EDT documented as of this encounter Care Teams Quantitative Software Engineer Relationship Specialty Start Date End Date Agustina Triana FNP [address] [place] [address] PCP - General Family Medicine 09/22/24 documented as of this encounter
--- OUTSIDE RECORDS SUMMARY | 2025-04-13 16:09 | XMS_ITS | Clinical Summary ---
Author Organization [facility] Address [address] [place] [address] Phone Care Team Providers Care Marine Engineering Consultant Name Role Phone Unavailable Primary Care Provider [...] of Deafness, No family history of *Sudden /ND under 55, No family history of ADD/ADHD, [...] 87 12/12/2014 12:00 AM EDT Temperature 37 C (98.6 F) 12/12/2014 12:00 AM EDT Respiratory Rate - [...] 07/02/1997, Additional history exists Influenza Vaccines (#1) 2025 04/24/20 14, 03/28/2010, 04/23/2008, Additional history exists COVID-19 Vaccine ( season) 2025 Hepatitis B Vaccines Completed 09/14/1996, 01/17/1996, 1995 HIB Vaccines Completed 04/02/1997, 05/29, 04/17/1996, Additional history exists IPV Vaccines Completed 02/25/2000, 10/1997, 06/19/1996, Additional history exists MMR Vaccines Completed 01/31/2001, 04/02/1997 HPV Vaccines Completed 03/28/2010, 03/29, 08/05/2006 Varicella Vaccines Completed 03/28/2010, 01/04/1997 Meningococcal Vaccine Completed 11/27/2014, 010 Men B Vaccine Aged Out No longer elig ible based on patient's age to complete this topic Pneumococcal Vaccine Aged Out No long er eligible based on patient's age to complete this topic Procedures * Due to [facility] law, this organization might not be sharing sensitive test results. Procedure Name Priority Date/Time Associated Diagnosis Comments CHLAMYDIA AND GONORRHEA, AMPLIFIED Routine 11/28/2014 2:18 PM EDT from Last 3 Months or Most Recently Relevant to Health Maintenance Results * Due to [place] [employer] law, this organization might not be sharing sensitive test results. * Chlamydia and Gonorrhoea, Amplified (11/28/2014 2:18 PM EDT) Pathologist [facility] URINE GC AMP PROBE NEGATIVE F [facility] Comment: No Neisseria Gonorrhoeae RNA detected in this patient's sample (REFERENCE RANGE/NORMAL VALUE: NOT DETECTED) NOTE: This test uses resident in diagnostic radiology-mediated amplification method to detect rRNA from C.Trachomatis [...] without risk of sexual abuse. Consult the [facility] if needed. Contact phone number . Therapeutic failure or success cannot be determined with the Aptima Combo2 assay since nucleic acid may persist following appropriate antimicrobial therapy. The Centers for Disease Control and Prevention (CDC) recommends confirmatory retesting using culture or a different nucleic acid amplification test when positive results occur, if indicated. Testing performed or reported by [facility], a Service of [facility], [address] [place] [id number] Shree Montoya MD, PhD, Wireless Field Technician URINE CHLAMYDIA AMP PROBE NEGATIVE [facility] Comment: No Chlamydia Trachomatis RNA detected in this patient's sample (REFERENCE RANGE/NORMAL VALUE: NOT DETECTED) 11/28/2014 2:18 PM EDT [facility] - 11/28/2014 2:18 PM EDT URINE CHLAMYDIA GC AMP PROBE us Cassidy Gardiner NP LAB MICROBIOLOGY - GENERAL OR DERABLES Final Result [facility] [address] [place] [phone], [place] from Last 3 Months or Most Recently Relevant to Health Maintenance
== END 2025-04-13 13:39 | disposition home or self-care (01) ==
LOC: HO.HHCL 13:38
PROVIDERS: PCP Nurse Practitioner; Visit Provider Nurse Practitioner
DX: R05.1 Acute cough (principal)
CPT/HCPCS: 71046

== ENCOUNTER → 2025-04-13 13:42 | Outpatient (BNV) | payer OTHER, SELFPAY | PROVIDERS: PCP Nurse Practitioner; Visit Provider Radiology Diagnostic Radiology | DX: R05.9 Cough, unspecified (principal) | CPT/HCPCS: 71046 ==

== ENCOUNTER 2025-05-02 14:57 | Outpatient (REF) | payer OTHER, SELFPAY ==
[2025-05-02 17:54] LABS: Alanine Aminotransferase 21 U/L (0-31); Albumin Level 4.2 g/dL (3.5-5.0); Alkaline Phosphatase 72 U/L (39-117); Anion Gap 9 (12-20); Aspartate Amino Transferase 23 U/L (5-31); Blood Urea Nitrogen 11 mg/dL (9-16); Calcium 9.4 mg/dL (8.4-10.2); Carbon Dioxide 28 mmol/L (22-29); Chloride 107 mmol/L (96-108); Estimated Glomerular Filt Rate > 60; Potassium 4.1 mmol/L (3.3-5.1); Sodium 140 mmol/L (135-145); Total Protein 6.8 g/dL (6.5-8.0)
[2025-05-08 18:28] LABS: Class Almond 0; Class Brazil Nut 0; Class Cashew 0; Class Codfish 0; Class Cow's Milk 0; Class Egg white 0; Class Hazelnut 0; Class Macadamia Nut 0; Class Peanut 0; Class Salmon 0; Class Scallop 0; Class Sesame Seed 0; Class Shrimp 0; Class Soybean 0; Class Tuna 0; Class Walnut 0; Class Wheat 0; F345-IgE Macadmia Nut <0.10 kU/L
== END 2025-05-02 14:58 | disposition home or self-care (01) ==
LOC: HO.LAB 14:57
PROVIDERS: PCP Registered Nurse; Visit Provider Nurse Practitioner
DX: R19.7 Diarrhea, unspecified (principal); R11.2 Nausea with vomiting, unspecified; R10.9 Unspecified abdominal pain; G89.29 Other chronic pain; Z01.84 Encounter for antibody response examination
CPT/HCPCS: 36415; 80053; 83013; 86003; 86140

== ENCOUNTER 2025-05-02 14:57 | Outpatient (AMB) | payer OTHER, SELFPAY ==
--- NOTE | 2025-05-02 15:01 | A.OFFVIS_ITS ---
Vital Signs 3 05/02/25 15:06 Height 5 ft 3 in Weight 130 lb 8.218 oz BMI 23.1 BP 117/75 Blood Pressure Location Rt brachial Position Sitting Pulse 83 Intake Visit Reasons: Abd pain/diarrhea/nausea Intake Note: New patient in office today for abd pain, diarrhea, and nausea. CC: Patient c/o mid upper abd pain that feels like a lump sitting right there. She wakes up nauseous, with dry heaves, and vomits sometimes worst when on her period. She use to be seen by GI at [facility] and had a colonoscopy done. She also c/o diarrhea about 4 days per week and stool is usually soft. She's also experiencing heartburn. She's tried different diets with not success. Onset of symptoms July 2023. 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 She is referred by [facility] in [place]. PMX Eczema HPV Chronic abdominal pain and nausea with diarrhea Fibroadenoma of the breast Nephrolithiasis * SURGICAL HISTORY [facility] [place] teeth extraction * ALLERGIES: NKDA * [facility]: Laboratory Tests 09/25/24 11:37 WBC 6.1 Hgb 13.4 Hct 39.7 Plt Count 317 Estimated GFR > 60 Total Bilirubin 0.6 AST 23 ALT 23 Alkaline Phosphatase 56 TSH 0.61 Tiss Transglutamin IgA <1.0 08/24/[address] [facility] [address]: Di Smith MD ORDERED: GI Panel Test Result Flag Reference Campylobacter Not Detected Not Detect. P. shigelloides Not Detected Not Detect. Salmonella Not Detected Not Detect. Vibrio Not Detected Not Detect. Vibrio Cholerae Not Detected Not Detect. Y. enterocolit. Not Detected Not Detect. E. coli EAEC Not Detected Not Detect. E. coli EPEC Not Detected Not Detect. E. coli ETEC Not Detected Not Detect. E. coli STEC Not Detected Not Detect. E. coli O157 Not applicable Not Detect. E. coli containing the O157 antigen are a subset of Shiga-like toxin-producing E. coli (STEC). Shigella/EIEC Not Detected Not Detect. Cryptosporidium Not Detected Not Detect. Cyclospora Not Detected Not Detect. E. histolytica Not Detected Not Detect. Giardia lamblia Not Detected Not Detect. Adenovirus Not Detected Not Detect. Astrovirus Not Detected Not Detect. Norovirus Not Detected Not Detect. Rotavirus A Not Detected Not Detect. Sapovirus Not Detected Not Detect. 08/24/2023 CT ABDOMEN AND PELVIS FINDINGS: CERTIFIED MEDICAL TRANSCRIPTIONIST: Unremarkable. LUNG BASES: The visualized lung bases are unremarkable. LIVER, GALLBLADDER, AND BILIARY TREE: The liver is normal in size, shape, and attenuation. No focal hepatic lesion or biliary ductal dilatation is present. The gallbladder is unremarkable with no evidence of radiopaque gallstones, gallbladder wall thickening, or obvious pericholecystic inflammatory changes. PANCREAS: Unremarkable. SPLEEN: Unremarkable. ADRENAL GLANDS: Unremarkable. KIDNEYS AND URETERS: The kidneys are normal in size, shape, and attenuation. No hydronephrosis, hydroureter, or calculi seen. Too small to characterize renal hypodensities are statistically cysts. No perinephric stranding. BLADDER: Unremarkable. GASTROINTESTINAL TRACT: Under distended. No small bowel obstruction. Fecalization of the terminal ileum. Unremarkable appendix. The ascending, transverse and proximal-mid descending colon are decompressed with mild stranding about the ascending and transverse colon. Few scattered diverticula noted. ABDOMINAL WALL: No significant hernia is appreciated. LYMPH NODES: Normal. VASCULAR: Unremarkable. PELVIC VISCERA: Likely bilateral ovarian follicles. Mildly prominent periuterine vessels. OSSEOUS STRUCTURES: Unremarkable. CT/CT abdomen pelvis w IV con IMPRESSION: CT findings suspicious for colitis. Mild diverticulosis without diverticulitis. TODAY'S VISIT Patient is was admitted as an inpatient in 2023 for ?colitis. ? It appears that she was supposed to see GI and have an EGD but signed out AMA due to anxiety. She was seeing GI at [facility] prior to transferring to our service. Last Jul sudden onset, like a stomach bug. Cont > 5 days, presented to ER, no resolution. [facility] Medical History Nephrolithiasis No known health problems Surgical History S/P breast biopsy, left H/O wisdom tooth extraction Social History Alcohol intake: former Comment: stopped all alcohol last year Patient Tobacco Use Status: Never used Tobacco Substance Use Type: Marijuana Review of Systems Const Denies fatigue, Denies fever(s), Denies night sweats, Denies poor appetite and Reports weight loss (>50lb) Eyes Details: glasses Reports requires corrective lenses ENT Reports Normal hearing present, Denies dental pain, Denies dysphagia, Denies hearing loss, Denies mouth pain, Denies odynophagia, Denies throat swelling, Denies tongue swelling and Reports other (Dentition adequate) Card Reports no additional complaints Resp Reports no additional complaints GI Details: Reports abdominal pain, Denies melena, Reports bloating, Denies hematochezia, Denies constipation, Denies GI cramping, Denies dysphagia, Denies excessive flatus, Denies early satiety, Reports heartburn, Denies diarrhea, Reports loose stools, Reports nausea, Denies odynophagia, Reports vomiting and Denies hematemesis Skin/Breast Reports dry skin, Denies pruritus, Denies lesions, Reports rash and Denies jaundice Neuro Reports Normal hearing present and Denies Abnormal speech present Endo Denies fatigue Aller/Immun Denies throat swelling and Denies tongue swelling Physical Exam Vital Signs: Last Vital Signs Pulse 83 05/02/25 15:06 BP 117/75 05/02/25 15:06 BMI result Body Mass Index 23.1 Const General: cooperative, no acute distress, well developed and well groomed Nutritional Appearance: average body habitus and well nourished Orientation/consciousness: oriented to person, oriented to place and oriented to time Limitations: No language barrier HEENT Head: Yes normocephalic and Yes atraumatic Eyes General: appearance normal, both eyes and all related structures Pupils: Equal, round and reactive pupils present Neck Neck: Yes normal visual inspection and Yes no lymphadenopathy Thyroid: Thyroid normal Resp Effort & Inspection: normal respiratory effort and able to speak in complete sentences Auscultation: clear to auscultation bilaterally Cardio Rate: regular rate Rhythm: regular rhythm Heart sounds: Normal, physiologic split S2 sound present Peripheral pulses: radial pulses present and posterior tibial pulses present GI Inspection: Yes distended (gastric) and No Abdominal panniculus present Palpation (GI): Soft to palpation, Tenderness to palpation present (GI), no guarding, not rigid and No hepatosplenomegaly present Percussion: Yes normal to percussion Auscultation: normal bowel sounds Rectal Exam - Female: deferred Abdomen image: 2 1. BB ring Skin General skin exam: no rashes or lesions noted, turgor normal, skin not dry, no jaundice, No spider nevi and no striae Rashes: no rashes Nails: normal Neuro General: oriented to person, oriented to place and oriented to time Cranial nerves: Yes Equal, round and reactive pupils present and Yes Normal hearing present Speech: No Abnormal speech present Extrem General: Yes normal to inspection, No clubbing, No cyanosis and No edema Psych Appearance: grossly normal and well kempt Mental Status: mental status grossly normal Speech and movement: Normal speech and movement present Affect: normal affect Attitude: cooperative Thought process: Normal thought process present and not confabulating Thought content: Normal thought content present Insight: Good insight present (Psych) Judgement: Good judgement present (Psych) Assessment & Plan Assessment & Plan (1) Intractable nausea and vomiting: Code(s): R11.2 - Nausea with vomiting, unspecified Category: Medical (2) Chronic abdominal pain: Code(s): R10.9 - Unspecified abdominal pain; G89.29 - Other chronic pain Category: Medical (3) Diarrhea: Code(s): R19.7 - Diarrhea, unspecified Category: Medical Qualifiers: Diarrhea type: unspecified type Qualified Code(s): R19.7 - Diarrhea, unspecified Plan - The patient is a 29-year-old female presenting with chronic gastrointestinal symptoms characterized by nausea, vomiting, abdominal pain, and significant weight loss. - Symptoms began in July 2023, initially misattributed to the flu. - She experiences persistent abdominal pain, described as a burning and dull sensation located above the umbilicus, often likened to a ball-like feeling. 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 - Notable unintentional weight loss has occurred, originally 185 lbs, now fluctuating around 125-130 lbs, with some improvement noted on a bland diet but ongoing inability to regain weight. - THC consumption primarily through gummies, stopped temporarily with no change in symptoms noted. - History of alcohol consumption but significantly reduced due to gastrointestinal sensitivity and intolerance. - Weight history includes significant unintentional loss from 185 lbs to current weight around 125-130 lbs. - Father had gallbladder removal. - Grandmother had frequent diarrhea attributable to multiple medications and diabetes at the end of life. We will get some basic labs and testing and start her on a trial of omeprazole. We will also order an EGD. Return office visit in 3 weeks Orders: Orders 2 Comprehensive Met. Panel 05/02/25 R10.9 - Unspecified abdominal pain, G89.29 - Other chronic pain, R11.2 - Nausea with vomiting, unspecified Rast Allergen 05/02/25 R10.9 - Unspecified abdominal pain, G89.29 - Other chronic pain, R11.2 - Nausea with vomiting, unspecified Calprotectin, Fecal 05/02/25 R19.7 - Diarrhea, unspecified NM gastric emptying study 05/02/25 R10.9 - Unspecified abdominal pain, G89.29 - Other chronic pain, R11.2 - Nausea with vomiting, unspecified, R19.7 - Diarrhea, unspecified Pancreatic Elastase-1 05/02/25 R10.9 - Unspecified abdominal pain, G89.29 - Other chronic pain, R11.2 - Nausea with vomiting, unspecified C Reactive Protein 05/02/25 R10.9 - Unspecified abdominal pain, G89.29 - Other chronic pain, R11.2 - Nausea with vomiting, unspecified H Pylori Breath Test 05/03/25 R10.9 - Unspecified abdominal pain, G89.29 - Other chronic pain, R11.2 - Nausea with vomiting, unspecified NM hepatobiliary w pharm 05/02/25 R10.9 - Unspecified abdominal pain, G89.29 - Other chronic pain, R11.2 - Nausea with vomiting, unspecified, R19.7 - Diarrhea, unspecified Referrals 2 GI Procedure Notification R10.9 - Unspecified abdominal pain, G89.29 - Other chronic pain, R11.2 - Nausea with vomiting, unspecified Medications: New 2 pantoprazole (Protonix) 40 mg PO DAILY 30 tabs 6RF 30 days R10.9 - Unspecified abdominal pain, G89.29 - Other chronic pain Coding Level of Care Code New Pt Level 3 (71557) Diagnoses Intractable nausea and vomiting R11.2 Chronic abdominal pain R10.9; G89.29 Diarrhea R19.7 Diarrhea type: unspecified type
[2025-05-02 15:06] VITALS: BP 117/75; PULSE 83; BMI 23.1
--- OUTSIDE RECORDS SUMMARY | 2025-05-02 18:03 | XMS_ITS | Encounter Summary ---
Author Organization [employer] Address [address] [place] [address] Care Team Providers Care Technical Aide Name Role Phone Agustina Triana Primary Care Provider [phone] Encounter Details Date Type Department Care Team ([facility] st Contact Info) Description 09/26/2024 Orders Only [facility] [address] [place], [place] [phone] Agustina Triana FNP [address] [place] [address] Social History Tobacco Use Types Packs/Day Years [...] Description 05/09/2025 11:30 AM EST Office Visit [facility] [address] [place] [address] Penelope Carlson, OD [address] [place] [address] documented as of this encounter Procedures Procedure [...] Provider LAB CYTOLOGY ORDERABLES F inal Result [facility] [address] [place] [address] [phone] documented in this encounter Visit Diagnoses Not on filedocumented in this encounter Additional Health Concerns Assessment Noted Time PHQ-9 Depression Total Score: 8 09/23/19 25 2:22 PM EDT documented as of this encounter Care Teams Technical Aide Relationship Specialty Start Date End Date Agustina Triana FNP [address] [place] [address] PCP - General Family Medicine 09/22/24 documented as of this encounter
--- OUTSIDE RECORDS SUMMARY | 2025-05-02 18:03 | XMS_ITS | Encounter Summary ---
Author Organization [employer] Address [address] [place] [address] Care Team Providers Care Solution Architect Name Role Phone Agustina Triana OIL DRILLING ENGINEER Primary Care Provider [phone] Encounter Details Date Type Department Care Team (Late st Contact Info) Description 09/26/2024 Orders Only [facility] [address] [place] [address] Provider, MD Corey Social History Tobacco Use [...] t he electric, gas, oil or water Noom threatened to shut off services in your [...] Description 05/09/2025 11:30 AM EST Office Visit [facility] [address] [place] [address] Aldo Penelope, OD [address] [place] [address] documented as of this encounter Procedures Procedure [...] documented as of this encounter Care Teams Solution Architect Relationship Specialty Start Date End Date Agustina Triana FNP [address] [place] [address] PCP - General Family Medicine 09/22/24 documented as of this encounter
--- OUTSIDE RECORDS SUMMARY | 2025-05-02 18:03 | XMS_ITS | Clinical Summary ---
Author Organization [employer] Address [address] [facility] 7t [place] [address] Care Team Providers Care Technical Services Librarian Name Role Phone Agustina Triana YO Primary Care Provider [phone] Allergies No known active allergies Medications ondansetron [...] loss ~35lbs over past year Referral to [facility] for further [...] loss ~35lbs over past year Referral to [facility] for further [...] Encounters Date Type Department Care Team Description 05/02/2025 Orders Only GENERIC EXTERNAL DATA DEPARTMENT Provider, Generic External Data 05/02/2025 Travel 04/30/2025 Results Follow-Up [facility] [address] [place] [address] Mami Reina NP XR Chest 2 Views 04/13/2025 1:00 PM EDT Office Visit [facility] [address] [place] [address] Mami Reina NP Acute cough (Primary Dx); Post-nasal drip 04/13/2025 Travel 04/13/2025 Telephone [facility] [address] [place] [address] Agustina Triana FNP Nurse Triage 03/07/2025 Telephone [facility] [address] [place] [address] Agustina Triana FNP 01/30/2025 Telephone [facility] [address] [place], [place] [phone] Agustina Triana FNP Neurology Referral from Last [...] History Relation Name Comments Asthma Brother Rafael Baziz Hypertension Father Shukri Bazzi Kidney disease Father Shukri Bazzi Diabetes Maternal Grandmother Viki Reg Hypertension Maternal Grandmother Viki Reg Stroke Maternal Grandmother Viki Reg Relation Name Status Comments Brother Rafael Bazzi Father Shukri Bazzi Maternal Grandmother Viki Reg Social History Tobacco Use Types Packs/Day Years [...] 11:30 AM EST Office Visit [facility] [address] [place] [address] [phone] Penelope Carlson, OD [address] [place] [address] Health Maintenance Due Date Last Done Comments [...] Procedure Name Priority Date/Time Associated Diagnosis Comments C-REACTIVE PROTEIN Routine 05/02/2025 4: 56 PM EST COMPREHENSIVE METABOLIC PANEL Routine 05/02/2025 4:56 PM EST XR CHEST 2 VIEWS Routine 04/13/2025 1:55 [...] Recently Relevant to Health Maintenance Results * C-reactive Protein (05/02/2025 4:56 PM EST) C Reactive Protein <0.10 < or = 0.50 mg/dL [facility] 05/02/2025 4:56 PM EST 05/02/2025 4:56 PM EST us Generic External Data Provider LAB BLOOD ORDERAB LES Final Result [facility] [address] [place], [place] [phone] * (ABNORMAL) Comprehensive Metabolic Panel (05/02/2025 4:56 PM EST) Sodium 140 135 - 145 mmol/L [facility] Potassium 4.1 3.3 - 5.1 mmol/L [facility] Chloride 107 96 - 108 mmol/L [facility] Carbon Dioxide 28 22 - 29 mmol/L [facility] Anion Gap 9(L) 12 - 20 [facility] Urea Nitrogen (BUN) 11 9 - 16 mg/dL [facility] Creatinine, Serum 0.69 0.5 - 1.4 mg/dL [facility] Estimated Glomerular Filt Rate >60 [facility] Comment:Chronic Kidney Disea se: Estimated GFR < 60 mL/min/1.05z0Fnucmz Kidney Disease: Estimated GFR < 15 mL/min/1.73m2 Glucose 90 60 - 115 mg/dL [facility] Calcium 9.4 8.4 - 10.2 mg/dL [facility] Bilirubin, Total 0.3 0.0 - 1.0 mg/dL [facility] Aspartate Amino Transferase 23 5 - 31 U/L [facility] Alanine Aminotransferase 21 0 - 31 U/L [facility] Total Protein 6.8 6.5 - 8.0 g/dL [facility] Albumin Level 4.2 3.5 - 5.0 g/dL [facility] Alkaline Phosphatase 72 39 - 117 U/L [facility] 05/02/2025 4:56 PM EST 05/02/2025 4:56 PM EST us Generic External Data Provider LAB BLOOD ORDERAB LES Final Result [facility] [address] [place] [phone] * XR Chest 2 Views (04/13/2025 1:55 PM EDT) Anatomical Region Laterality Modality Chest Radiographic Kacy ging 04/13/2025 1:55 PM EDT Narrative 04/13/2025 2:03 PM EDT [address] [address] XRay Report Signed Patient: Sapna Bazzi MR#: [id number] 8 : 1995 Acct:[id number] Age/Sex: 29 / F ADM Date: 04/13/25 Loc: .[facility] Attending Dr: Mami Reina Ordering Physician: Mami Reina Date of Service: 04/13/25 Procedure(s): XR chest 2V Accession Number(s): [id number] cc: Mami Reina Reason for Exam: cough [...] 04/13/25 1400 DD/ 1355 TD/TT: 04/13/25 1357 Bindery Machine Tender: Procedure Note Donotuseinterpreter, Image - 04/13/[address] [address] XRay Report Signed Patient: Sapna BazziMR#: [id number] 8 : 1995Acct:[id number] Age/Sex: 29 / FADM Date: 04/13/25 Loc: .[facility] Attending Dr: Mami Reina Ordering Physician: Mami Reina Date of Service: 04/13/25 Procedure(s): XR chest 2V Accession Number(s): [id number] cc: Mami Reina Reason for Exam: cough [...] 04/13/25 1400 DD/ 1355 TD/TT: 04/13/25 1357 Bindery Machine Tender: us Mami Reina TIMEKEEPING SUPERVISOR IMG XR PROCEDURES Final Result * POCT Rapid Influenza B GREER ID NOW (04/13/2025 1:30 PM EDT) Influenza B Negative Negative, Indeterminate [facility] QC Media Lot # [id number] [facility] Lot# Expiration Date [facility] Swab 04/13/2025 1:30 PM EDT us Mami Reina TIMEKEEPING SUPERVISOR POINT OF CARE TEST ENTER/EDIT O RDERABLES Final Result [facility] [address] [place] [phone] [phone] * POCT Rapid Influenza A GREER ID NOW (04/13/2025 1:29 PM EDT) Pathologist [facility] Influenza A Negative Negative, Indeterminate [facility] QC Media Lot # [id number] [facility] Lot# Expiration Date 22,127 [facility] Swab 04/13/2025 1:29 PM EDT [facility] TIMEKEEPING SUPERVISOR POINT OF CARE TEST ENTER/EDIT O RDERABLES Final Result [facility] [address] [place] [phone] * POCT Rapid Covid-19 BinaxNOW (04/13/2025 1:26 PM EDT) [facility] Rapid COVID Ag Negative QC Media Lot # [id number] Lot# Expiration Date 82,226 Swab 04/13/2025 1:26 PM EDT [facility] TIMEKEEPING SUPERVISOR POINT OF CARE TEST ENTER/EDIT O RDERABLES Final Result * Hepatitis C Viral RNA, Quantitative, Real-Time PCR (09/25/2024 11:37 AM EDT) [facility] Hepatitis C Viral Load <15 NOT DETECTED NOT DETECTED IU/mL [facility] HCV Log PCR <1.18 NOT DETECTED NOT DETECTED Log IU/mL [facility] Comment:For additional infor mation, please refer [email or web address]/faq/[email or web address](This link is being provided for informational/educational purposes only.)THIS TEST WAS PERFORMED AT:[employer] [place] [phone] DEL CASTILLO MD Blood 09/25/2024 11:3 7 AM EDT 09/25/2024 12:30 PM EDT Agustina Triana [facility] LAB BLOOD ORDERABLES Final Res ult Performing Organization Address [facility] Co de Phone Number [facility] [address] [place] [phone] * HIV-1/2 Antigen and Antibodies, Fourth Generation, with Reflexes (09/25/2024 11:37 AM EDT) HIV AB/AG Nonreactive Nonreactive [facility] Comment:HIV-1 p24 Ag and/or HIV-1/HIV-2 Ab not detected.A test result that is nonreactive does not exclude thepossibility of exposure to or infection with HIV-1 and/orHIV-2. Nonreactive results in this assay for individualswith prior exposure to HIV-1 and/or HIV-2 may be due toantigen and antibody levels that are below the limit ofdetection of this assay.The [employer] HIV Ag/Ab Combo assay result andsupplemental assay results should be interpreted inconjunction with the patient's clinical presentation,history and other laboratory results. If the results areinconsistent with clinical evidence, additional testing issuggested to confirm the result. Blood Venous blood specimen / Unknown 09/25/2024 11:37 AM EDT 09/25/2024 12:30 PM EDT Agustina Triana [facility] LAB BLOOD ORDERABLES Final Res ult Performing Organization Address [facility] Co de Phone Number [facility] [address] [place] [phone] * HM PAP/HPV (08/01/2024 3:27 PM EST) Historical Provider HEALTH MAINTENANCE Final Result * (ABNORMAL) Colposcopy (07/11/2021 12:00 AM EST) Historical Provider HEALTH MAINTENANCE Final Result from Last 3 Months or Most Recently Relevant to Health Maintenance Insurance [facility] , [address] [place] [address] DENTAL - [facility] Care Teams Technical Services Librarian Relationship Specialty Start Date End Date Agustina Triana FNP [address] [place] [address] PCP - General Family Medicine 09/22/24
--- OUTSIDE RECORDS SUMMARY | 2025-05-02 18:03 | XMS_ITS | Encounter Summary ---
Author Organization [employer] Address [address] [place] [address] Care Team Providers Care Gig Tender Name Role Phone Agustina Triana Primary Care Provider [phone] Reason for Visit * Reason Onset Date Comments Nurse Triage 04/13/2025 Encounter Details Date Type Department Care Team ([facility] st Contact Info) Description 04/13/2025 Telephone [facility] [address] [place] [address] Agustina Triana FNP [address] [place] [address] Nurse Triage Social History Tobacco Use Types [...] since Wednesday. No appointments available today at [facility], sent patient to walk-in center to be [...] caller accepted this outcome. Contact pt at [phone] documented in this encounter Plan of Treatment Upcoming Encounters Date Type Department Care Team ([facility] st Contact Info) Description 05/09/2025 11:30 AM EST Office Visit [facility] [address] [place] [address] Penelope Carlson, OD [address] [place] [address] documented as of this encounter Visit Diagnoses Not on filedocumented in this encounter Additional Health Concerns Assessment Noted Time PHQ-9 Depression Total Score: 8 09/23/19 25 2:22 PM EDT documented as of this encounter Care Teams Gig Tender Relationship Specialty Start Date End Date Agustina Triana FNP [address] [place] [address] PCP - General Family Medicine 09/22/24 documented as of this encounter
--- OUTSIDE RECORDS SUMMARY | 2025-05-02 18:03 | XMS_ITS | Encounter Summary ---
Author Organization [employer] Address [address] [place] [address] Care Team Providers Care Thoracic Medicine Physician Name Role Phone Agustina Triana YO Primary Care Provider [phone] Encounter Details Date Type Department Care Team ([facility] st Contact Info) Description 05/02/2025 Orders Only GENERIC EXTERNAL DATA DEPARTMENT Provider, Generic External Data Social History Tobacco Use Types Packs/Day Years [...] Description 05/09/2025 11:30 AM EST Office Visit [facility] [address] [place] [address] Aldo, Penelope, OD [address] [place] [address] documented as of this encounter Procedures Procedure Name Priority Date/Time Associated Diagnosis Comments C-REACTIVE PROTEIN Routine 05/02/2025 4: 56 PM EST COMPREHENSIVE METABOLIC PANEL Routine 05/02/2025 4:56 PM EST documented in this encounter Results * C-reactive Protein (05/02/2025 4:56 PM EST) C Reactive Protein <0.10 < or = 0.50 mg/dL [facility] 05/02/2025 4:56 PM EST 05/02/2025 4:56 PM EST us Generic External Data Provider LAB BLOOD ORDERAB LES Final Result [facility] [address] [place] [address] [phone] * (ABNORMAL) Comprehensive Metabolic Panel (05/02/2025 4:56 PM EST) Sodium 140 135 - 145 mmol/L [facility] Potassium 4.1 3.3 - 5.1 mmol/L [facility] Chloride 107 96 - 108 mmol/L [facility] Carbon Dioxide 28 22 - 29 mmol/L [facility] Anion Gap 9(L) 12 - 20 [facility] Urea Nitrogen (BUN) 11 9 - 16 mg/dL [facility] Creatinine, Serum 0.69 0.5 - 1.4 mg/dL [facility] Estimated Glomerular Filt Rate >60 [facility] Comment:Chronic Kidney Disea se: Estimated GFR < 60 mL/min/1.05b0Pajofv Kidney Disease: Estimated GFR < 15 mL/min/1.73m2 Glucose 90 60 - 115 mg/dL [facility] Calcium 9.4 8.4 - 10.2 mg/dL [facility] Bilirubin, Total 0.3 0.0 - 1.0 mg/dL [facility] Aspartate Amino Transferase 23 5 - 31 U/L [facility] Alanine Aminotransferase 21 0 - 31 U/L [facility] Total Protein 6.8 6.5 - 8.0 g/dL [facility] Albumin Level 4.2 3.5 - 5.0 g/dL [facility] Alkaline Phosphatase 72 39 - 117 U/L [facility] 05/02/2025 4:56 PM EST 05/02/2025 4:56 PM EST us Generic External Data Provider LAB BLOOD ORDERAB LES Final Result Performing Organization Address City/State/[facility] Co de Phone Number [facility] [address] [place] [phone] documented in this encounter Visit Diagnoses Not on filedocumented in this encounter Additional Health Concerns Assessment Noted Time PHQ-9 Depression Total Score: 8 09/23/19 25 2:22 PM EDT documented as of this encounter Care Teams Thoracic Medicine Physician Relationship Specialty Start Date End Date Agustina Triana FNP [address] [place] [address] PCP - General Family Medicine 09/22/24 documented as of this encounter
--- OUTSIDE RECORDS SUMMARY | 2025-05-02 18:03 | XMS_ITS | Encounter Summary ---
Author Organization [facility] Address [address] [place] [address] Phone Care Team Providers Care Paper Sample Clerk Name Role Phone Unavailable Primary Care Provider Unavailabl e Encounter Details Date Type Department Care Team (Late st Contact Info) Description 10/17/2012 Documentation [facility] Family Medicine [address] [place] [address] Family Medicine, Physician [facility] [place] [address] Social History Tobacco Use Types [...]
--- OUTSIDE RECORDS SUMMARY | 2025-05-02 18:03 | XMS_ITS | Encounter Summary ---
Author Organization [facility] Address [address] [place] [address] Phone Care Team Providers Care Head Of Store Operations Name Role Phone Unavailable Primary Care Provider Unavailabl e Encounter Details Date Type Department Care Team (Late st Contact Info) Description 02/11/2017 Conversion Encounter [facility] - [address] [address] Social History Tobacco Use Types Packs/Day Years [...]
--- OUTSIDE RECORDS SUMMARY | 2025-05-02 18:03 | XMS_ITS | Clinical Summary ---
Author Organization [facility] Address [address] [place] [address] Phone Care Team Providers Care Pulmonary Specialist Name Role Phone Unavailable Primary Care Provider [...] of Deafness, No family history of *Sudden /[place] under 55, No family history of ADD/ADHD, [...] complete this topic Procedures * Due to [place] law, this organization might not be sharing sensitive test results. Procedure Name Priority Date/Time Associated Diagnosis Comments CHLAMYDIA AND GONORRHEA, AMPLIFIED Routine 11/28/2014 2:18 PM EDT from Last 3 Months or Most Recently Relevant to Health Maintenance Results * Due to [place] [employer] law, this organization might not be sharing sensitive test results. * Chlamydia and Gonorrhoea, Amplified (11/28/2014 2:18 PM EDT) Pathologist [facility] URINE GC AMP PROBE NEGATIVE F [facility] Comment: No Neisseria Gonorrhoeae RNA detected in this patient's sample (REFERENCE RANGE/NORMAL VALUE: NOT DETECTED) NOTE: This test uses director international-mediated amplification method to detect rRNA from C.Trachomatis [...] without risk of sexual abuse. Consult the [facility] if needed. Contact phone number . Therapeutic failure or success cannot be determined with the Aptima Combo2 assay since nucleic acid may persist following appropriate antimicrobial therapy. The Centers for Disease Control and Prevention (CDC) recommends confirmatory retesting using culture or a different nucleic acid amplification test when positive results occur, if indicated. Testing performed or reported by [facility], a Service of [facility], [address] [place] [address] Shree Montoya MD, PhD, Detective And Intelligence Analyst URINE CHLAMYDIA AMP PROBE NEGATIVE [facility] Comment: No Chlamydia Trachomatis RNA detected in this patient's sample (REFERENCE RANGE/NORMAL VALUE: NOT DETECTED) 11/28/2014 2:18 PM EDT [facility] - 11/28/2014 2:18 PM EDT URINE CHLAMYDIA GC AMP PROBE us Cassidy Gardiner NP LAB MICROBIOLOGY - GENERAL OR DERABLES Final Result [facility] [address] [place] [phone], [place] from Last 3 Months or Most Recently Relevant to Health Maintenance
--- OUTSIDE RECORDS SUMMARY | 2025-05-02 18:03 | XMS_ITS | Clinical Summary ---
Author Organization [facility] Address [address] [place] [address] Phone Care Team Providers Care Architecture Department Chair Name Role Phone Unavailable Primary Care Provider Unavailabl e Allergies No known active allergies Medications norelgestromin-e thinyl estradiol (ORTHO EVRA) 150-35 mcg/[address] 1 patch on the skin 1 (one) time per week. Apply 1 patch each week for 3 weeks, then remove for 1 week. 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) 07/15/2021 Overview (05/12/2024): 05/06/2021 ASCUS HR HPV Neg 16/18/45 07/11/2021 Colpo TRISTA 1 Immunizations Immunization Administration Dates Next Due DTP 04/17/1996,02/24/1996 DTaP (Infanrix) 6wks to less than 7yo 02/25/2000 ,07/02/1997,06/19/1996 HCdI-LUQ-TAY (Pentacel) 2mo to less than 5yo 04/02/1997,06/19/1996,04/17/1996,02/23 [...] 01/31/2001,04/02/1997 Meningococcal MCV4P 11/27/2014,03/28/2010 OPV 06/19/1996, 6,03/26/1996,02/23 [place] SARS-CoV-2 COVID-19, mRNA, LNP-S, preservative free 12/20/2020,11/28/2020 [...] Record ed Within the last 3 months, ho eddy many times did you visit the emergency [...] care for your loved ones. For example, child care center assistant director or elderly care for an older adult? [...] Date Recorded What is your living situation? Unrecognized valu e 07/31/2024 Comments No Sex and Gender Information [...] 84 08/01/2024 1:42 PM EST Temperature 36.6 C (97.8 F) 06/13/2024 2:45 PM EST Respiratory Rate 12 08/01/2024 1:42 PM EST Oxygen Saturation 100% 06/13/2024 2:45 PM EST Inhaled Oxygen Concentration - - Weight 54.9 kg (121 lb) 08/01/2024 1:42 PM EST Height 167.6 cm (5' 6 ) 08/01/2024 1:42 PM EST Body Mass Index 19.53 08/01/2024 1:42 PM EST Plan of Treatment Health Maintenance Due Date Last Done Comments Hepatitis A Vaccines (2 of 2 - 2-dose series) 05/29/2015 11/27/2014 Hepatitis C Screening 06/06/2022 COVID-19 Vaccine ( season) 2025 12/20/2020, 11/28/2020 Influenza Vaccine (#1) 2025 04/2404/24/2014, 03/28/2010, Additional history exists Social Influencers of Health Screening 07/31/2025 07/31/2024 Cervical Cancer Screening: Pap Smear 08/01/2025 08/01/2024, 08/01/2024, 05/16/2021, Additional history exists DTaP,Tdap,and Td Vaccines (8 - Td or Tdap) 10/05/2028 10/05/2018, 04/23/2008, 02/25/2000, Additional history exists RSV Immunization Adult Patients (1 - 1-dose 75+ series) 12/15/2070 Hepatitis B Vaccines Completed 09/14/1996, 01/17/1996, 1995 HIB Vaccines Completed 04/02/1997, 11/1996, 06/19/1996, Additional history exists IPV Vaccines Completed 02/25/2000, 10/1997, 04/02/1997, Additional history exists MMR Vaccines Completed 01/31/2001, 04/02/1997 HPV Vaccines Completed 03/28/2010, 03/29, 08/05/2006 Meningococcal ACWY Vaccine Completed 11/27/2014, Varicella Vaccines Completed 03/24/2022, 1 , 01/04/1997 Depression Screening Completed 07/31/2024 HIV Screening Completed 09/25/2024 Meningococcal B Vaccine Aged Out No l onger eligible based on patient's age to complete this topic Pneumococcal Vaccine: Pediatrics (0 to 5 Years) and At-Risk Patients (6 to 49 Years) Aged Out No longer eligible based on patient's age to complete this topic RSV Immunization Patients Under 20 months Aged Out No longer eligible based on patient's age to complete this topic Medical Devices Implanted Type Area Wire Taper Device Identifier Shelf Expiration Date Model / Serial / Lot Marker Tissue Breast Dual Trig 17x10 Ultrasound Enhanced - [id number] - [id number] Implanted:Qty: 1 on 05/03/2024 by Erick Sage MD at [facility] Imaging Implants Left: Breast CR [employer] 11/22/2026 [id number] / [id number] / Procedures Procedure Name Priority Date/Time Associated Diagnosis Comments HPV WITH REFLEX GENOTYPE Routine 08/01/2024 1:54 PM EST Encounter for annual routine gynecological examination Atypical squamous cell changes of undetermined significance (ASCUS) on cervical cytology with 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 virus (HPV) Screening for cervical cancer from Last 3 Months or Most Recently Relevant to Health Maintenance Results * HPV with reflex genotype (08/01/2024 1:54 PM EST) HPV Negative Negative LAB MICROBIOLOGY METHOD 08/03/2024 2:40 PM EST [facility] Brushing/Spatula Cervix uteri structure / Unknown 08/01/2024 1:54 PM EST 08/02/2024 6:16 AM EST Agustina Florez CNM LAB MOLECULAR DIAGNOSTICS ORDER MARIA ELENA Final Result [facility] [address] [place] [address], from Last 3 Months or Most Recently Relevant to Health Maintenance Insurance [facility]
--- OUTSIDE RECORDS SUMMARY | 2025-05-02 18:03 | XMS_ITS | Encounter Summary ---
Author Organization [employer] Address [address] [place] [address] Care Team Providers Care Senior Etl Developer Name Role Phone Agustina Triana YO Primary Care Provider [phone] Encounter Details Date Type Department Care Team ([facility] st Contact Info) Description 04/30/2025 Results Follow-Up [facility] [address] [place] [address] Mami Reina NP [address] [place] [address] XR Chest 2 Views Social History Tobacco Use Types Packs/Day Years [...] Description 05/09/2025 11:30 AM EST Office Visit [facility] [address] [place] [address] AldoPenelope, OD [address] [place] [address] documented as of this encounter Visit Diagnoses Not on filedocumented in this encounter Additional Health Concerns Assessment Noted Time PHQ-9 Depression Total Score: 8 09/23/19 25 2:22 PM EDT documented as of this encounter Care Teams Senior Etl Developer Relationship Specialty Start Date End Date Agustina Triana FNP [address] [place] [address] PCP - General Family Medicine 09/22/24 documented as of this encounter
--- OUTSIDE RECORDS SUMMARY | 2025-05-02 18:03 | XMS_ITS | Encounter Summary ---
Author Organization [facility] Address [address] [place] [address] Phone Care Team Providers Care Test Engineer Nuclear Equipment Name Role Phone Unavailable Primary Care Provider Unavailabl e Encounter Details Date Type Department Care Team (Late st Contact Info) Description 04/26/2014 Documentation [facility] [place] Family Medicine [address] [place] [address] Family Medicine, Physician [facility] [place] [address] Social History Tobacco Use Types [...]
--- OUTSIDE RECORDS SUMMARY | 2025-05-02 18:03 | XMS_ITS | Encounter Summary ---
Author Organization [employer] Address [address] [place] [address] Care Team Providers Care Horizontal Resaw Operator Name Role Phone Agustina Triana YO Primary Care Provider [phone] Encounter Details Date Type Department Care Team (Latest Contact Info) Description 05/02/2025 Travel Social History Tobacco Use Types Packs/Day [...] Description 05/09/2025 11:30 AM EST Office Visit [facility] [address] [place], [place] [id number] AldoPenelope fontaine, OD [address] [place] [address] documented as of this encounter Visit Diagnoses Not on filedocumented in this encounter Additional Health Concerns Assessment Noted Time PHQ-9 Depression Total Score: 8 09/23/19 25 2:22 PM EDT documented as of this encounter Care Teams Horizontal Resaw Operator Relationship Specialty Start Date End Date Agustina Triana FNP [address] [place] [address] PCP - General Family Medicine 09/22/24 documented as of this encounter
== END 2025-05-02 16:36 | disposition home or self-care (01) ==
LOC: HO.HGI 14:58
PROVIDERS: PCP Registered Nurse; Visit Provider Nurse Practitioner
DX: R11.2 Nausea with vomiting, unspecified (principal); R10.9 Unspecified abdominal pain; G89.29 Other chronic pain; R19.7 Diarrhea, unspecified
CPT/HCPCS: 99203